=== PATIENT | male | born 1960 | race Caucasian/White ===

== ENCOUNTER 2023-11-06 15:07 | Inpatient (IN) ==
--- NOTE | 2023-11-06 15:16 | Emergency Department Note ---
Impression & Plan Acute UTI ADMIT ED Provider Note HPI: History obtained from EMS report and patient. The patient is a 62-year-old gentleman with history of traumatic brain injury in 1977, status post DIMMER BOARD OPERATOR shunt, presents the emergency department with a chief complaint of headache and vomiting for the past several weeks. Patient states his vomiting is gotten worse just over the past several days. On arrival here to the ER the patient is hemodynamically stable, he does not have any new focal deficits, is noted to have paralysis of the left lower extremity which the patient states is his baseline. Patient denies any recent fever, he is otherwise in no acute distress on arrival. Patient is afebrile on arrival and saturating well on room air. ROS: - Per HPI Differential Diagnosis: DIMMER BOARD OPERATOR shunt malfunction with hydrocephalus, infection/meningitis, migraine complex, tension headache, small bowel obstruction, viral gastroenteritis, acute cholecystitis, acute appendicitis, ischemic colitis, diverticulitis, amongst other potential pathologies. *Outpatient medications and allergy history reviewed. PE: General: Alert, no acute distress HEENT: Normocephalic, trachea midline Eyes: Extraocular eye movement is intact, no scleral erythema Pulmonary: Clear to auscultation bilaterally, no wheezing Cardio: Regular rate and rhythm GI: Abdomen is soft to palpation : No suprapubic tenderness MSK: No evidence of trauma or malformation of the extremities, no edema Skin: No evidence of rash Neuro: Alert, chronic paralysis of the left lower extremity, otherwise no new focal deficits Psychiatric: Cooperative INDEPENDENT INTERPRETATIONS: media monitor: (As interpreted by myself): - An order was placed for continuous cardiac monitoring - Patient was noted to be in sinus rhythm with a rate of 80 EKG: (As interpreted by myself): Rate: 66 Rhythm: Normal sinus rhythm Intervals: Within normal limits ST changes: No ST elevation Time: 1533 Interventions provided in ED: -IV fluid bolus, IV Zofran, IV Reglan, IV Benadryl Medical Decision Making: IV was established and lab work obtained, patient was placed on satellite project site monitor. Lab work shows a mild leukocytosis of 11.85, hemoglobin is normal, platelet count is slightly elevated at 473, CMP does not show any critical findings, no evidence of acute kidney injury, procalcitonin is low, lipase is normal. There is no transaminitis, bilirubin is normal. CT imaging of the head does not show any evidence of hydrocephalus or DIMMER BOARD OPERATOR shunt misplacement/malfunction. CT imaging of the abdomen pelvis was therefore performed that does not show any evidence of small bowel obstruction or acute surgical abnormality. Chest x-ray per radiology interpretation does show evidence of left-sided basilar opacity. Patient does have recent history of inpatient admission for pneumonia. Urinalysis also appears consistent with infection and also with some ketonuria. Blood cultures were drawn and the patient was treated with IV ceftriaxone. Viral panel testing is negative. At this time the patient remains alert and afebrile, CT imaging is reassuring in regards to DIMMER BOARD OPERATOR shunt placement, there is no hydrocephalus, patient has not had a fever, low concern for meningitis at this time. On my reassessment the patient remains alert, he states he still does feel unwell, he was therefore given a dose of IV Reglan for nausea and IV Benadryl as well. Patient states he does still have a moderate headache. At this time I feel given his symptoms he should be admitted for further management and treatment with IV antibiotics for pneumonia and UTI. Case was discussed with the on-call hospitalist, Dr. Blevins, and the patient was placed for admission in stable condition for further care. Consultants/Discussions held with other healthcare providers: -Hospitalist, Dr. Blevins Disposition discussion held by myself with: -Patient and patient's sister at the bedside Diagnosis: 1. Nausea and vomiting, acute 2. Headache, acute, intractable 3. Urinary tract infection, acute 4. Left-sided basilar pneumonia, acute 5. Ketonuria, acute Disposition: Admission Truman Orta DO Emergency Medicine Past Med/Surg History Problem List (Updated 11/06/23 @ 20:44 by Truman Orta DO) Acute UTI (Acute) UTI symptoms Urinary retention Encounter for pre-operative examination Rigidity (Chronic) Left upper extremity Eustachian tube dysfunction (Chronic) Spasticity (Chronic) Left upper extremity Urinary frequency (Acute) Nocturia (Acute) Neurogenic bladder (Acute) Enlarged prostate with lower urinary tract symptoms (LUTS) (Acute) Urge incontinence of urine Fecal occult blood test positive GERD (gastroesophageal reflux disease) History of cranial surgery (Chronic) 1977 History of tracheostomy (Chronic) no longer has Chronic rhinitis (Chronic) Tobacco use disorder (Chronic) Laryngitis, chronic (Chronic) GERD (gastroesophageal reflux disease) (Chronic) Seizure disorder (Chronic) at least 20yrs since last, grand mal and silent type--follows with Dr. Unger, on medication Left hemiparesis (Chronic) status post head injury--wheelchair bound, brace left lower leg, can stand to transfer Hypertension (Chronic) Medical History (Updated 11/06/23 @ 20:44 by Truman Orta DO) Wheelchair bound Chronic back pain BPH (benign prostatic hyperplasia) Hematest positive stools reason for scheduled colonoscopy Diabetes mellitus, type 2 Temporomandibular joint disorder Hearing loss, right 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 History of head injury 1977 Urine incontinence Stool incontinence Surgical History History of brain shunt History of foot surgery left tendon release History of surgery on left wrist tendon release History of tooth extraction all teeth History of tonsillectomy History of bilateral cataract extraction Family History Sister Family history of diabetes mellitus Uncle Family history of diabetes mellitus Grandmother (Paternal) Family history of diabetes mellitus Other Diabetes Heart disease Hypertension No family history of adverse response to anesthesia Prostate cancer Social History Smoking Status: Former smoker Tobacco Type: Cigarettes Cigarettes Per Day: "heavy" 40 a day; Second Hand Exposure: Yes (parents smoked); Do You Dip or Chew Tobacco: Yes (unsure how much a day); Hx Alcohol Use: No Hx Substance Use: No Preferred Language: Occitan Communication Ability: Effective Communication Ability Comment: signs own consents Sport 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 Required: No Beliefs That Will Affect Care: None Current Living Situation: Alone Current Living Situation Comment: caregiver there several hours a day current occupational status: disabled Feels Safe at Home: Yes Assistive Devices: Brace/Splint/Immobilizer, Denture - Upper, Denture - Lower and Wheelchair Allergies Allergies Allergy/AdvReac Type Severity Reaction Status Date / Time aspirin AdvReac Mild Anxiety Verified 02/16/23 11:44 [From Excedrin Extra Strength] caffeine AdvReac Mild Anxiety Verified 02/16/23 11:44 [From Excedrin Extra Strength] Home Meds Home Medications Medication Instructions Recorded Confirmed baclofen 10 mg tablet 10 mg PO TID 01/02/18 11/06/23 carbamazepine 200 mg 200 mg PO BID 01/02/18 11/06/23 tablet,extended release,12 hr (Tegretol XR) clonazepam 1 mg tablet (Klonopin) 1 mg PO HS PRN Sleep 01/02/18 11/06/23 divalproex 500 mg tablet,delayed 500 mg PO BID 01/02/18 11/06/23 release (Depakote) atorvastatin 20 mg tablet 20 mg PO QPM 04/30/18 11/06/23 lisinopril 5 mg tablet 2.5 mg PO QAM 05/15/19 11/06/23 acetaminophen 500 mg capsule 1,000 mg PO Q6H PRN Pain 01/12/20 11/06/23 ciprofloxacin HCl 250 mg tablet 250 mg PO BID 11/06/23 11/06/23 fluticasone fur. 100 mcg-umeclid 1 inh inhalation DAILY 11/06/23 11/06/23 62.5 mcg-vilant 25 mcg inhalat.powder (Trelegy Ellipta) magnesium oxide 400 mg (241.3 mg 400 mg PO QAM 11/06/23 11/06/23 magnesium) tablet melatonin 3 mg tablet 6 mg PO HS 11/06/23 11/06/23 metformin 500 mg tablet 500 mg PO BID 11/06/23 11/06/23 miconazole nitrate 2 % topical 1 applic topical BID PRN Other 11/06/23 11/06/23 powder (Zeasorb AF) mirabegron 50 mg tablet,extended 50 mg PO QAM 11/06/23 11/06/23 release 24 hr (Myrbetriq) oxybutynin chloride 15 mg 15 mg PO PM 11/06/23 11/06/23 tablet,extended release 24 hr sodium hypochlorite 0.25 % 1 applic topical .AFTERNOON 11/06/23 11/06/23 solution (Dakin's Solution) Results & Data (ED) Vital Signs Vital Signs - 24 hr 11/06/23 15:13 11/06/23 15:26 11/06/23 15:27 Temperature 36.8 C Temperature Source Oral Oral Pulse Rate 64 Pulse Rate [Apical] 69 Pulse Rhythm Regular Pulse Rhythm [Apical] Pulse Strength Normal Pulse Strength [Apical] Normal Respiratory Rate 19 19 Respiratory Effort / Characteristics Non-Labored Spontaneous Non-Labored Spontaneous Respiratory Depth Normal Normal Respiratory Pattern Regular Regular Blood Pressure 136/68 Blood Pressure [Right Arm] 136/68 Blood Pressure Mean 90 Blood Pressure Mean [Right Arm] 90 Pulse Oximetry 94 94 94 Oxygen Delivery Method Room Air Room Air Room Air Sepsis Recent Fever Within 48 Hours No Sepsis New/Unexplained Change in Mental Status No Sepsis Action Taken by Nursing No Action Required 11/06/23 15:33 11/06/23 15:41 11/06/23 16:03 Temperature Temperature Source Pulse Rate 68 62 Pulse Rate [Apical] Pulse Rhythm Pulse Rhythm [Apical] Pulse Strength Pulse Strength [Apical] Respiratory Rate 20 20 Respiratory Effort / Characteristics Respiratory Depth Respiratory Pattern Blood Pressure Blood Pressure [Right Arm] Blood Pressure Mean Blood Pressure Mean [Right Arm] Pulse Oximetry 93 Oxygen Delivery Method Sepsis Recent Fever Within 48 Hours Sepsis New/Unexplained Change in Mental Status Sepsis Action Taken by Nursing 11/06/23 17:00 11/06/23 19:11 11/06/23 19:20 Temperature 37 C Temperature Source Oral Pulse Rate 79 Pulse Rate [Apical] 68 Pulse Rhythm Pulse Rhythm [Apical] Regular Pulse Strength Pulse Strength [Apical] Normal Respiratory Rate 18 19 Respiratory Effort / Characteristics Non-Labored Spontaneous Non-Labored Spontaneous Respiratory Depth Normal Normal Respiratory Pattern Regular Regular Blood Pressure Blood Pressure [Right Arm] 115/62 153/88 H Blood Pressure Mean Blood Pressure Mean [Right Arm] 79 109 Pulse Oximetry 99 99 Oxygen Delivery Method Room Air Room Air Sepsis Recent Fever Within 48 Hours Sepsis New/Unexplained Change in Mental Status Sepsis Action Taken by Nursing Laboratory Data 11/06/23 15:38 11/06/23 15:38 Lab Results 11/06/23 11/06/23 Range/Units 15:38 Unknown WBC 11.85 H (4.8-10.8) K/ul RBC 5.01 (4.70-6.10) M/uL Hgb 14.4 (14.0-18.0) g/dl Hct 44.5 (42.0-52.0) % MCV 88.8 (80.0-100.0) fL MCH 28.7 (25.0-34.0) pg MCHC 32.4 (32.0-36.0) g/dL RDW Std Deviation 45.1 (36.4-46.3) fL RDW Coeff of Carlos Eduardo 14.0 (11.5-14.5) % Plt Count 473 H (130-400) K/uL MPV 9.7 (9.4-12.4) fL Immature Gran % (Auto) 0.4 % Neut % (Auto) 76.8 % Lymph % (Auto) 17.1 % [place] % (Auto) 4.6 % Eos % (Auto) 0.8 % Baso % (Auto) 0.3 % Neut # (Auto) 9.10 H (1.40-6.50) K/uL Lymph # (Auto) 2.03 (1.20-3.40) K/uL [place] # (Auto) 0.55 (0.11-0.59) K/uL Eos # (Auto) 0.09 (0.00-0.50) K/uL Baso # (Auto) 0.03 (0.00-0.20) K/uL Immature Gran # (Auto) 0.05 (0.01-0.20) K/uL Sodium 137 (136-145) mmol/L Potassium 4.5 (3.5-5.1) mmol/L Chloride 100 (98-107) mmol/L Carbon Dioxide 24 (21-32) mmol/L Anion Gap 13 H (3-11) BUN 14 (6-23) mg/dl Creatinine 0.57 L (0.6-1.4) mg/dl Est Cr Clr Drug Dosing 145.7 ml/min Est GFR ( Amer) 129.4 ml/min Est GFR (Non-Af Amer) 111.6 ml/min BUN/Creatinine Ratio 24.6 H (10-20) Glucose 181 H (70-99(Fasting)) mg/dl Calcium 9.6 (8.6-10.3) mg/dl Total Bilirubin 0.2 (0.2-1.0) mg/dl AST 15 (13-39) U/L ALT 22 (7-52) U/L Alkaline Phosphatase 64 (34-104) U/L Total Protein 8.5 H (6.0-8.3) gm/dl Albumin 4.1 (3.4-5.0) gm/dl Globulin 4.4 H (2.5-4.0) gm/dl Albumin/Globulin Ratio 0.9 (0.9-2) Lipase 14 (11-82) U/L Procalcitonin 0.03 (0-0.5) ng/ml Urine Color Dark Yellow Urine Appearance Clear (Clear) Urine pH 5.5 (4.5-7.5) Ur Specific [place] 1.035 H (1.000-1.030) Urine Protein 3+ H (Negative) Urine Glucose (UA) Trace H (Negative) Urine Ketones 2+ H (Negative) Urine Blood Negative (Negative) Urine Nitrite Positive A (Negative) Urine Bilirubin Negative (Negative) Urine Urobilinogen Negative (Negative) Ur Leukocyte Esterase Negative (Negative) Urine WBC (Auto) 21-50 H (0-5) /hpf Urine RBC (Auto) 11-20 H (0-2) /hpf U Hyaline Cast (Auto) 3-5 H (0-2) /lpf U Epithel Cells (Auto) 0-2 (0-2) /hpf Urine Bacteria (Auto) 3+ H (None Seen) Adenovirus (PCR) Not Detected (NotDetected) B. pertussis DNA (PCR) Not Detected (NotDetected) B.parapertussis DNA PCR Not Detected (NotDetected) C. pneumoniae DNA (PCR) Not Detected (NotDetected) Coronavirus OC43 (PCR) Not Detected (NotDetected) Coronavirus HKU1 (PCR) Not Detected (NotDetected) Coronavirus 229E (PCR) Not Detected (NotDetected) SARS-CoV-2 (PCR) Not Detected (NotDetected) Coronavirus NL63 (PCR) Not Detected (NotDetected) Human Metapneumovir PCR Not Detected (NotDetected) Influenza Type A (PCR) Not Detected (NotDetected) Influenza Type B (PCR) Not Detected (NotDetected) M. pneumoniae (PCR) Not Detected (NotDetected) Parainfluenza 1 (PCR) Not Detected (NotDetected) Parainfluenza 2 (PCR) Not Detected (NotDetected) Parainfluenza 3 (PCR) Not Detected (NotDetected) Parainfluenza 4 (PCR) Not Detected (NotDetected) RSV (PCR) Not Detected (NotDetected) Entero/Rhino (PCR) Not Detected (NotDetected) Administered Medications Discontinued Medications Diphenhydramine HCl (Diphenhydramine 50 Mg/Ml Vial) 25 mg IV NOW STA Stop: 11/06/23 18:54 Last Admin: 11/06/23 19:09 Dose: 25 mg Documented By: DIONNE Sodium Chloride (Nss) 500 mls @ 999 mls/hr IV .Q31M ONE Stop: 11/06/23 15:45 Last Infusion: 11/06/23 16:36 Dose: Infused Documented By: Admin: 11/06/23 15:42 Dose: 999 mls/hr Documented By: DIONNE Ceftriaxone Sodium (Rocephin) 2,000 mg in 50 mls @ 100 mls/hr IV NOW STA Stop: 11/06/23 19:18 Last Infusion: 11/06/23 20:21 Dose: Infused Documented By: Admin: 11/06/23 19:49 Dose: 100 mls/hr Documented By: DIONNE Ioversol (Optiray 320 100ml) 94 ml IV ONCE ONE Stop: 11/06/23 17:16 Last Admin: 11/06/23 17:16 Dose: 94 ml Documented By: ERASMO Metoclopramide HCl (Metoclopramide Hcl Inj 5 Mg/Ml 2 Ml Vial) 10 mg IV NOW STA Stop: 11/06/23 18:54 Last Admin: 11/06/23 19:08 Dose: 10 mg Documented By: DIONNE Ondansetron HCl (Ondansetron Inj 2 Mg/Ml 2 Ml Vial) 4 mg IV NOW STA Stop: 11/06/23 15:16 Last Admin: 11/06/23 15:42 Dose: 4 mg Documented By: DIONNE Ondansetron HCl (Ondansetron Inj 2 Mg/Ml 2 Ml Vial) 4 mg IV NOW STA Stop: 11/06/23 16:58 Last Admin: 11/06/23 17:07 Dose: 4 mg Documented By: DIONNE Imaging Data Radiologist's Impression: Head CT 11/06/23 15:23 CT head/brain wo con CLINICAL HISTORY: 62 years-old Male with COOK, vomiting, DIMMER BOARD OPERATOR shunt. Acute headache TECHNIQUE: Multiple axial CT images of the head were obtained without contrast. A dose lowering technique was utilized adhering to the principles of ALARA. CT DOSE: 2061.94 mGy.cm COMPARISON: 07/17/2016, 02/11/2018 FINDINGS: Motion degraded exam. Right posterior approach ventriculostomy catheter again noted with distal tip terminating within the anterior horn of the right lateral ventricle. There is a large area of encephalomalacia within the right cerebral hemisphere MCA territory with right sided craniectomy changes. No acute intracranial hemorrhage, midline shift, intracranial mass, hydrocephalus, territorial ischemia or abnormal extra-axial collection. Transverse dimension of the lateral ventricles is 2.5 cm, previously 1.7 cm on the 07/17/2016 study. This is within normal limits. The calvarium is intact. Moderate mucosal thickening of the maxillary sinuses. Unremarkable soft tissues and orbits. Prior bilateral lens repair. IMPRESSION: 1. Motion degraded exam without acute intracranial abnormality. 2. Chronic findings as above without evidence of hydrocephalus. 3. Stable positioning of the ventriculostomy catheter. ACT 112: Negative or not required by law. The above report was generated using voice recognition software. It may contain grammatical, syntax or spelling errors. Electronically signed by: Bryan Chaves M.D. 11/06/2023 4:09 PM Abdomen/Pelvis CT 11/06/23 16:14 CT OF THE ABDOMEN AND PELVIS WITH CONTRAST CLINICAL HISTORY: Nausea and vomiting. COMPARISON STUDY: CT of the abdomen and pelvis February 23, 2022. TECHNIQUE: Following IV administration of 94 mL of Optiray, axial images of the abdomen and pelvis were obtained from the lung bases to the proximal femurs. Images were reviewed in the axial, sagittal, and coronal planes. IV contrast was administered without complication. Automated exposure control was utilized for the study. A dose lowering technique was utilized adhering to the principles of ALARA. CT DOSE: 1793.59 mGy.cm FINDINGS: Visualized portions of the DIMMER BOARD OPERATOR shunt catheter are intact. The tip is within the right mid abdomen. Small left pleural effusion is noted with pleural thickening. This is likely chronic. Subpleural left lower lobe opacity favors atelectasis. No pneumatosis, free air or portal venous gas is present. The gallbladder is mildly distended. There is no convincing evidence for acute cholecystitis. There are no hepatic lesions. There is no biliary or pancreatic ductal dilatation. Spleen, adrenal glands and pancreas are unremarkable. Water attenuation left renal lesions represent cysts. There is a 5 mm left renal calculus. There are no ureteral calculi. There is no hydronephrosis. The appendix is normal. No evidence for a bowel obstruction. There is a moderate amount of stool within the rectum. Bailey balloon within the bladder is present. The bladder is collapsed. There is no fluid collection within the abdomen or pelvis. A mildly enlarged mesenteric lymph node on image 270 measures 1.8 x 1 cm. IMPRESSION: 1. No bowel obstruction. No bowel wall thickening. Normal appendix. Moderate amount of stool within the rectum. 2. 5 mm left renal calculus. No ureteral calculi. No hydronephrosis. 3. Mildly enlarged mesenteric lymph node which is nonspecific. A follow-up CT of the abdomen and pelvis in 6 months is recommended. 4. Small left pleural effusion with pleural thickening. This effusion is probably chronic. Subpleural left lower lobe opacity favors atelectasis. ACT 112: Negative or not required by law. Electronically signed by: Ger Taylor M.D. 11/06/2023 5:39 PM Chest X-Ray 11/06/23 16:28 XR chest 1V portable CLINICAL HISTORY: N/V, recent PNA COMPARISON STUDY: No previous studies for comparison. FINDINGS: A DIMMER BOARD OPERATOR shunt catheter is partially imaged. Lung volumes are mildly enlarged. There is mild cardiomegaly. There is pulmonary vascular congestion. Suspected trace left pleural effusion with mild left basilar opacity. IMPRESSION: 1. Cardiomegaly. Pulmonary vascular congestion without overt pulmonary edema. 2. Trace left pleural effusion with mild left basilar opacity which favors atelectasis although an infectious process could appear similar. ACT 112: Negative or not required by law. Electronically signed by: Ger Taylor M.D. 11/06/2023 5:12 PM Discharge Plan Visit Data Chief Complaint: Illness Stated Complaint: ILLNESS ED Provider: Truman Orta Discharge Problem: Acute UTI Forms Stand Alone Forms: [facility] Prescriptions Prescriptions: No Action clonazepam [Klonopin] 1 mg tablet 1 mg PO HS PRN (Reason: Sleep) divalproex [Depakote] 500 mg tablet,delayed release (DR/EC) 500 mg PO BID carbamazepine [Tegretol XR] 200 mg tablet extended release 12 hr 200 mg PO BID baclofen 10 mg tablet 10 mg PO TID atorvastatin 20 mg tablet 20 mg PO QPM lisinopril 5 mg tablet 2.5 mg PO QAM acetaminophen 500 mg Capsule 1,000 mg PO Q6H PRN (Reason: Pain) metformin 500 mg tablet 500 mg PO BID miconazole nitrate [Zeasorb AF] 2 % powder 1 applic TOPICAL BID PRN (Reason: Other) melatonin 3 mg tablet 6 mg PO HS ciprofloxacin HCl 250 mg tablet 250 mg PO BID magnesium oxide 400 mg (241.3 mg magnesium) tablet 400 mg PO QAM Dakin's Solution 0.25 % solution 1 applic topical .AFTERNOON Trelegy Ellipta 100-62.5-25 mcg blister with device 1 inh INHALATION DAILY oxybutynin chloride 15 mg tablet extended release 24hr 15 mg PO PM mirabegron [Myrbetriq] 50 mg tablet extended release 24 hr 50 mg PO QAM Referrals Referrals: Radha Martin MD [Primary Care Provider] -
[2023-11-06] MEDS: ONDANSETRON INJ 2 MG/ML 2 ML VIAL IV STA ×2 (15:42→17:07)
[2023-11-06] MEDS: SODIUM CHLORIDE 0.9% 500 ML IV ONE (15:42)
[2023-11-06 15:57] LABS: Basophils # (auto) 0.03 K/uL (0.00-0.20); Basophils % (auto) 0.3 %; Eosinophils # (auto) 0.09 K/uL (0.00-0.50); Eosinophils % (auto) 0.8 %; Hematocrit (blood only) 44.5 % (42.0-52.0); Hemoglobin 14.4 g/dl (14.0-18.0); Immature Granulocytes # (auto) 0.05 K/uL (0.01-0.20); Immature Granulocytes % (auto) 0.4 %; Lymphocytes # (auto) 2.03 K/uL (1.20-3.40); Lymphocytes % (auto) 17.1 %; Mean Corpuscular Hemoglobin 28.7 pg (25.0-34.0); Mean Corpuscular Hgb Conc 32.4 g/dL (32.0-36.0); Mean Corpuscular Volume 88.8 fL (80.0-100.0); Mean Platelet Volume 9.7 fL (9.4-12.4); Monocytes # (auto) 0.55 K/uL (0.11-0.59); Monocytes % (auto) 4.6 %; Neutrophils % (auto) 76.8 %; Platelet Count 473 K/uL (130-400); RDW Standard Deviation 45.1 fL (36.4-46.3); Red Blood Count 5.01 M/uL (4.70-6.10); White Blood Count 11.85 K/ul (4.8-10.8)
--- NOTE | 2023-11-06 16:10 | CT Scan Report ---
CT head/brain wo con CLINICAL HISTORY: 62 years-old Male with COOK, vomiting, POT FLUXER shunt. Acute headache TECHNIQUE: Multiple axial CT images of the head were obtained without contrast. A dose lowering tech nique was utilized adhering to the principles of ALARA. CT DOSE: 2061.94 mGy.cm COMPARISON: 07/17/2016, 02/11/2018 FINDINGS: Motion degraded exam. Right posterior approach ventriculostomy catheter again noted with distal tip t erminating within the anterior horn of the right lateral ventricle. There is a large area of encephal omalacia within the right cerebral hemisphere MCA territory with right sided craniectomy changes. No acute intracranial hemorrhage, midline shift, intracranial mass, hydrocephalus, territorial ischemia or abnormal extra-axial collection. Transverse dimension of the lateral ventricles is 2.5 cm, previou sly 1.7 cm on the 07/17/2016 study. This is within normal limits. The calvarium is intact. Moderate mucosal thickening of the maxillary sinuses. Unremarkable soft tis sues and orbits. Prior bilateral lens repair. IMPRESSION: 1. Motion degraded exam without acute intracranial abnormality. 2. Chronic findings as above without evidence of hydrocephalus. 3. Stable positioning of the ventriculostomy catheter. ACT 112: Negative or not required by law. The above report was generated using voice recognition software. It may contain grammatical, syntax o r spelling errors. Electronically signed by: Bryan Chaves M.D. 11/06/2023 4:09 PM
[2023-11-06 16:38] LABS: Albumin Level 4.1 gm/dl (3.4-5.0); Bilirubin,Total 0.2 mg/dl (0.2-1.0); Calcium 9.6 mg/dl (8.6-10.3); Potassium 4.5 mmol/L (3.5-5.1)
[2023-11-06 16:44] LABS: Albumin Globulin Ratio 0.9 (0.9-2); BUN Creatinine Ratio 24.6 (10-20); Creatinine Clr Calc Pharmacy 145.7 ml/min; Est GFR (African American) 129.4 ml/min; Est GFR (Non-African American) 111.6 ml/min; Globulin 4.4 gm/dl (2.5-4.0); Total Protein 8.5 gm/dl (6.0-8.3)
--- NOTE | 2023-11-06 17:14 | XRay Report ---
XR chest 1V portable CLINICAL HISTORY: N/V, recent PNA COMPARISON STUDY: No previous studies for comparison. FINDINGS: A STEP DOWN NURSE shunt catheter is partially imaged. Lung volumes are mildly enlarged. There is mild ca rdiomegaly. There is pulmonary vascular congestion. Suspected trace left pleural effusion with mild l eft basilar opacity. IMPRESSION: 1. Cardiomegaly. Pulmonary vascular congestion without overt pulmonary edema. 2. Trace left pleural effusion with mild left basilar opacity which favors atelectasis although an in fectious process could appear similar. ACT 112: Negative or not required by law. Electronically signed by: Ger Taylor M.D. 11/06/2023 5:12 PM
[2023-11-06] MEDS: OPTIRAY 320 100ml IV ONE (17:16)
[2023-11-06 17:35] LABS: Appearance Urine Clear (Clear); Bacteria Urine Automated 3+ (None Seen); Bilirubin Urine Negative (Negative); Blood Urine Negative (Negative); Color Urine Dark Yellow; Epithelial Cell Urine Auto 0-2 /hpf (0-2); Glucose Urine UA Trace (Negative); Ketones Urine 2+ (Negative); Leukocyte Esterase Urine Negative (Negative); Nitrite Urine Positive (Negative); Protein Urine 3+ (Negative); Specific Gravity Urine 1.035 (1.000-1.030); Urobilinogen Urine Negative (Negative); WBC Urine Automated 21-50 /hpf (0-5); pH Urine 5.5 (4.5-7.5)
--- NOTE | 2023-11-06 17:42 | CT Scan Report ---
CT OF THE ABDOMEN AND PELVIS WITH CONTRAST CLINICAL HISTORY: Nausea and vomiting. COMPARISON STUDY: CT of the abdomen and pelvis February 23, 2022. TECHNIQUE: Following IV administration of 94 mL of Optiray, axial images of the abdomen and pelvis we re obtained from the lung bases to the proximal femurs. Images were reviewed in the axial, sagittal, and coronal planes. IV contrast was administered without complication. Automated exposure control wa s utilized for the study. A dose lowering technique was utilized adhering to the principles of ALARA . CT DOSE: 1793.59 mGy.cm FINDINGS: Visualized portions of the SUPERVISOR EVAPORATOR shunt catheter are intact. The tip is within the right mid ab domen. Small left pleural effusion is noted with pleural thickening. This is likely chronic. Subpleur al left lower lobe opacity favors atelectasis. No pneumatosis, free air or portal venous gas is prese nt. The gallbladder is mildly distended. There is no convincing evidence for acute cholecystitis. The re are no hepatic lesions. There is no biliary or pancreatic ductal dilatation. Spleen, adrenal gland s and pancreas are unremarkable. Water attenuation left renal lesions represent cysts. There is a 5 m m left renal calculus. There are no ureteral calculi. There is no hydronephrosis. The appendix is nor mal. No evidence for a bowel obstruction. There is a moderate amount of stool within the rectum. Fole y balloon within the bladder is present. The bladder is collapsed. There is no fluid collection withi n the abdomen or pelvis. A mildly enlarged mesenteric lymph node on image 270 measures 1.8 x 1 cm. IMPRESSION: 1. No bowel obstruction. No bowel wall thickening. Normal appendix. Moderate amount of stool within t he rectum. 2. 5 mm left renal calculus. No ureteral calculi. No hydronephrosis. 3. Mildly enlarged mesenteric lymph node which is nonspecific. A follow-up CT of the abdomen and pelv is in 6 months is recommended. 4. Small left pleural effusion with pleural thickening. This effusion is probably chronic. Subpleural left lower lobe opacity favors atelectasis. ACT 112: Negative or not required by law. Electronically signed by: Ger Taylor M.D. 11/06/2023 5:39 PM
[2023-11-06] MEDS: METOCLOPRAMIDE HCL INJ 5 MG/ML 2 ML VIAL IV STA (19:08)
[2023-11-06] MEDS: diphenhydrAMINE 50 MG/ML VIAL IV STA (19:09)
[2023-11-06 19:10] LABS: Adenovirus PCR Not Detected (NotDetected); Bordetella parapertussis PCR Not Detected (NotDetected); Bordetella pertussis PCR Not Detected (NotDetected); Chlamydia pneumoniae PCR Not Detected (NotDetected); Coronavirus 229E PCR Not Detected (NotDetected); Coronavirus CoV-2 (COVID19)PCR Not Detected (NotDetected); Coronavirus HKU1 PCR Not Detected (NotDetected); Coronavirus NL63 PCR Not Detected (NotDetected); Coronavirus OC43PCR Not Detected (NotDetected); Human Metapneumovirus PCR Not Detected (NotDetected); Influenza A PCR Not Detected (NotDetected); Influenza B PCR Not Detected (NotDetected); Mycoplasma pneumoniae PCR Not Detected (NotDetected); Parainfluenza Virus 1 PCR Not Detected (NotDetected); Parainfluenza Virus 2 PCR Not Detected (NotDetected); Parainfluenza Virus 3 PCR Not Detected (NotDetected); Parainfluenza Virus 4 PCR Not Detected (NotDetected); Respiratory Syncytial VirusPCR Not Detected (NotDetected); Rhinovirus/Enterovirus PCR Not Detected (NotDetected)
[2023-11-06] MEDS: cefTRIAXone SODIUM 2,000 MG/50 ML BAG IV STA (19:49)
--- NOTE | 2023-11-06 20:34 | History & Physical Report ---
Date of Service November 06, 2023 Assessment & Plan (1) Acute UTI: Plan: 62yo male with recent admission to [facility] for sepsis and PNA presenting with headache, nausea and vomiting. Patient's symptoms are similar to prior UTIs. He is afebrile, HD stable and non-toxic in appearance Given complaint of nausea and vomiting, CT of the head was obtained due to history of NETWORK SYSTEMS INTEGRATOR shunt - appears to be in place and functioning properly -Admit to medical -Follow urine cultures, sensitivities -Maintain contact isolation precautions - patient with history of ESBL UTI in the past -Meropenem 500mg IV q 6 hours -Zofran PRN nausea -Tylenol PRN pain/COOK -Exchange Bailey catheter order placed -Continue Oxybutynin (2) Hypertension: Plan: Chronic. -Continue Lisinopril -Monitor (3) Diabetes mellitus, type 2: Plan: Blood sugar 181 on intake labs. Patient takes Metformin at home -Hold Metformin -Lantus 7u BID -ISS -Goal blood sugar 110 - 140 (4) Sacral wound: Plan: Noted. Currently being treated with daily wet to dry dressing with Dakins solution -Wound care appreciated Plan F/E/N- LR at 100mL/hr x 2L, monitor electrolytes and replete as needed, CC diet - minced and moist with nectar thick liquids and ongoing aspiration precautions after discussion with sister Ppx - Lovenox Code - Full per discussion with patient Dispo - Admit to medical History of Present Illness Chief Complaint: nausea, vomiting and COOK x 3 days Primary Care Provider: Radha Martin MD Jeffrey Ernandez is a 62yo male presenting with three days of nausea, vomiting and headache. 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 He has a NETWORK SYSTEMS INTEGRATOR shunt in place and is wheelchair bound. His sister is at bedside and provides majority of the history. She reports that patient has not been well since September 15, 2023 when he presented to [facility] with acute hypoxic respiratory failure and sepsis secondary to LLL pneumonia. He had a CT of the abdomen which revealed a large abscess of the left buttock. He was taken to the OR on 09/20/23 for incision and drainage and was treated with IV antibiotics. He was discharged to [facility] swing bed for rehab on 10/01/23. While at [facility] he developed nausea, vomiting and headache and was found to have an ESBL UTI. He was treated with IV Meropenem with improvement. The patient was ultimately transferred to [facility] on 10/18/23. He had diffuse myopathy but functional status improved during his stay there. on 10/30/23 patient again developed nausea, vomiting and headache and was found to have another UTI secondary to ESBL Klebsiella. He was changed to Ciprofloxacin and ultimately discharged home on 11/02/23. Yesterday patient developed recurrence of headache as well as nausea and vomiting. He had 5-6 episodes of non-bloody/non-bilious emesis. Additionally sister reports some ongoing SOB, chills, congestion and cough. No fever, no abdominal pain or diarrhea. Patient with longstanding indwelling Bailey catheter for the last year. Sister reports it was changed out last Sunday. UOP appears normal. He has been having worsening bladder spasms - sister does not think he has been getting his Mybetriq or Oxybutynin at rehab. PO intake has been normal. However, patient has had significant weight los 226# --> 190# since September 14. In the ER patient afebrile, HD stable. Allergies Allergy/AdvReac Type Severity Reaction Status Date / Time aspirin AdvReac Mild Anxiety Verified 02/16/23 11:44 [From Excedrin Extra Strength] caffeine AdvReac Mild Anxiety Verified 02/16/23 11:44 [From Excedrin Extra Strength] Home Medications Medication Instructions Recorded Confirmed Type baclofen 10 mg tablet 10 mg PO TID 01/02/18 11/06/23 History carbamazepine 200 mg 200 mg PO BID 01/02/18 11/06/23 History tablet,extended release,12 hr (Tegretol XR) clonazepam 1 mg tablet (Klonopin) 1 mg PO HS PRN Sleep 01/02/18 11/06/23 History divalproex 500 mg tablet,delayed 500 mg PO BID 01/02/18 11/06/23 History release (Depakote) atorvastatin 20 mg tablet 20 mg PO QPM 04/30/18 11/06/23 History lisinopril 5 mg tablet 2.5 mg PO QAM 05/15/19 11/06/23 History acetaminophen 500 mg capsule 1,000 mg PO Q6H PRN Pain 01/12/20 11/06/23 History ciprofloxacin HCl 250 mg tablet 250 mg PO BID 11/06/23 11/06/23 History fluticasone fur. 100 mcg-umeclid 1 inh inhalation DAILY 11/06/23 11/06/23 History 62.5 mcg-vilant 25 mcg inhalat.powder (Trelegy Ellipta) magnesium oxide 400 mg (241.3 mg 400 mg PO QAM 11/06/23 11/06/23 History magnesium) tablet melatonin 3 mg tablet 6 mg PO HS 11/06/23 11/06/23 History metformin 500 mg tablet 500 mg PO BID 11/06/23 11/06/23 History miconazole nitrate 2 % topical 1 applic topical BID PRN Other 11/06/23 11/06/23 History powder (Zeasorb AF) mirabegron 50 mg tablet,extended 50 mg PO QAM 11/06/23 11/06/23 History release 24 hr (Myrbetriq) oxybutynin chloride 15 mg 15 mg PO PM 11/06/23 11/06/23 History tablet,extended release 24 hr sodium hypochlorite 0.25 % 1 applic topical .AFTERNOON 11/06/23 11/06/23 History solution (Dakin's Solution) Past Med/Surg History Problem List (Updated 11/07/23 @ 01:36 by Petra Blevins DO) Sacral wound Acute UTI (Acute) UTI symptoms Urinary retention Encounter for pre-operative examination Rigidity (Chronic) Left upper extremity Eustachian tube dysfunction (Chronic) Spasticity (Chronic) Left upper extremity Urinary frequency (Acute) Nocturia (Acute) Neurogenic bladder (Acute) Enlarged prostate with lower urinary tract symptoms (LUTS) (Acute) Urge incontinence of urine Fecal occult blood test positive GERD (gastroesophageal reflux disease) History of cranial surgery (Chronic) 1977 History of tracheostomy (Chronic) no longer has Chronic rhinitis (Chronic) Tobacco use disorder (Chronic) Laryngitis, chronic (Chronic) GERD (gastroesophageal reflux disease) (Chronic) Seizure disorder (Chronic) at least 20yrs since last, grand mal and silent type--follows with Dr. Julio Cesar cisneros, on medication Left hemiparesis (Chronic) status post head injury--wheelchair bound, brace left lower leg, can stand to transfer Hypertension (Chronic) Medical History (Updated 11/07/23 @ 01:36 by Petra Blevins DO) Wheelchair bound Chronic back pain BPH (benign prostatic hyperplasia) Hematest positive stools reason for scheduled colonoscopy Diabetes mellitus, type 2 Temporomandibular joint disorder Hearing loss, right 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 History of head injury 1977 Urine incontinence Stool incontinence Surgical History History of brain shunt History of foot surgery left tendon release History of surgery on left wrist tendon release History of tooth extraction all teeth History of tonsillectomy History of bilateral cataract extraction Family History Sister Family history of diabetes mellitus Uncle Family history of diabetes mellitus Grandmother (Paternal) Family history of diabetes mellitus Other Diabetes Heart disease Hypertension No family history of adverse response to anesthesia Prostate cancer Social History Smoking Status: Former smoker Tobacco Type: Cigarettes Cigarettes Per Day: "heavy" 40 a day; Second Hand Exposure: No; Do You Dip or Chew Tobacco: No; Hx Alcohol Use: No Hx Substance Use: No Preferred Language: Polish Communication Ability: Effective Communication Ability Comment: signs own consents Licensed [employer] App[employer] Required: No Beliefs That Will Affect Care: None Current Living Situation: Family Current Living Situation Comment: caregiver there several hours a day current occupational status: disabled Other Information That Helps Us Care for You: No Feels Safe at Home: Yes Safety Concerns: Feels Safe At This Time Assistive Devices: Brace/Splint/Immobilizer and Special Shoe Review of Systems Review of Systems: All systems reviewed & are unremarkable except as noted in HPI & below Physical Exam Physical Exam: General: chronically ill appearing male, NAD Skin: sacral decubitus present (not independently visualized) HEENT: NC/AT, PERRL, EOMI, anicteric sclera, conjunctiva without injection, external ear normal to inspection and nontender, nares patent, moist mucus membranes, dentition intact, no oropharyngeal lesions, neck supple, trachea midline, no LAD, no thyromegaly, no JVD, dysarthria, left facial droop Heart: +S1/S2, regular, no m/r/g Lungs: equal air entry bilaterally, no rales/rhonchi/wheezes Abd: +BS, soft, NT/ND, no masses/organomegaly/ascites Ext: warm, 2+ pulses in UE/LE bilaterally, no clubbing/cyanosis or edema Neuro: left sided paralysis Results & Data Results & Data Vital Signs (Past 12 Hours) Vital Signs Temp Pulse Pulse Resp BP BP Pulse Ox 11/06/23 19:20 79 11/06/23 19:11 37 C 68 19 153/88 H 99 11/06/23 17:00 18 115/62 99 11/06/23 16:03 20 93 11/06/23 15:41 62 11/06/23 15:33 68 20 11/06/23 15:27 69 19 136/68 94 11/06/23 15:26 94 11/06/23 15:13 36.8 C 64 19 136/68 94 O2 Del Method 11/06/23 19:20 11/06/23 19:11 Room Air 11/06/23 17:00 Room Air 11/06/23 16:03 11/06/23 15:41 11/06/23 15:33 11/06/23 15:27 Room Air 11/06/23 15:26 Room Air 11/06/23 15:13 Room Air Laboratory Results Laboratory Results WBC 11.85 K/ul (4.8-10.8) H 11/06/23 15:38 RBC 5.01 M/uL (4.70-6.10) 11/06/23 15:38 Hgb 14.4 g/dl (14.0-18.0) 11/06/23 15:38 Hct 44.5 % (42.0-52.0) 11/06/23 15:38 MCV 88.8 fL (80.0-100.0) 11/06/23 15:38 MCH 28.7 pg (25.0-34.0) 11/06/23 15:38 MCHC 32.4 g/dL (32.0-36.0) 11/06/23 15:38 RDW Std Deviation 45.1 fL (36.4-46.3) 11/06/23 15:38 RDW Coeff of Carlos Eduardo 14.0 % (11.5-14.5) 11/06/23 15:38 Plt Count 473 K/uL (130-400) H 11/06/23 15:38 MPV 9.7 fL (9.4-12.4) 11/06/23 15:38 Immature Gran % (Auto) 0.4 % 11/06/23 15:38 Neut % (Auto) 76.8 % 11/06/23 15:38 Lymph % (Auto) 17.1 % 11/06/23 15:38 [place] % (Auto) 4.6 % 11/06/23 15:38 Eos % (Auto) 0.8 % 11/06/23 15:38 Baso % (Auto) 0.3 % 11/06/23 15:38 Neut # (Auto) 9.10 K/uL (1.40-6.50) H 11/06/23 15:38 Lymph # (Auto) 2.03 K/uL (1.20-3.40) 11/06/23 15:38 [place] # (Auto) 0.55 K/uL (0.11-0.59) 11/06/23 15:38 Eos # (Auto) 0.09 K/uL (0.00-0.50) 11/06/23 15:38 Baso # (Auto) 0.03 K/uL (0.00-0.20) 11/06/23 15:38 Immature Gran # (Auto) 0.05 K/uL (0.01-0.20) 11/06/23 15:38 Sodium 137 mmol/L (136-145) 11/06/23 15:38 Potassium 4.5 mmol/L (3.5-5.1) 11/06/23 15:38 Chloride 100 mmol/L (98-107) 11/06/23 15:38 Carbon Dioxide 24 mmol/L (21-32) 11/06/23 15:38 Anion Gap 13 (3-11) H 11/06/23 15:38 BUN 14 mg/dl (6-23) 11/06/23 15:38 Creatinine 0.57 mg/dl (0.6-1.4) L 11/06/23 15:38 Est Cr Clr Drug Dosing 145.7 ml/min 11/06/23 15:38 Est GFR ( Amer) 129.4 ml/min 11/06/23 15:38 Est GFR (Non-Af Amer) 111.6 ml/min 11/06/23 15:38 BUN/Creatinine Ratio 24.6 (10-20) H 11/06/23 15:38 Glucose 181 mg/dl (70-99(Fasting)) H 11/06/23 15:38 POC Glucose 192 mg/dl (70-99) H 11/06/23 22:21 Calcium 9.6 mg/dl (8.6-10.3) 11/06/23 15:38 Phosphorus 3.6 mg/dl (2.5-4.9) 11/06/23 15:38 Magnesium 1.8 mg/dl (1.7-2.4) 11/06/23 15:38 Total Bilirubin 0.2 mg/dl (0.2-1.0) 11/06/23 15:38 AST 15 U/L (13-39) 11/06/23 15:38 ALT 22 U/L (7-52) 11/06/23 15:38 Alkaline Phosphatase 64 U/L (34-104) 11/06/23 15:38 Total Protein 8.5 gm/dl (6.0-8.3) H 11/06/23 15:38 Albumin 4.1 gm/dl (3.4-5.0) 11/06/23 15:38 Globulin 4.4 gm/dl (2.5-4.0) H 11/06/23 15:38 Albumin/Globulin Ratio 0.9 (0.9-2) 11/06/23 15:38 Lipase 14 U/L (11-82) 11/06/23 15:38 Procalcitonin 0.03 ng/ml (0-0.5) 11/06/23 15:38 Urine Color Dark Yellow 11/06/23 Unknown Urine Appearance Clear (Clear) 11/06/23 Unknown Urine pH 5.5 (4.5-7.5) 11/06/23 Unknown Ur Specific [place] 1.035 (1.000-1.030) H 11/06/23 Unknown Urine Protein 3+ (Negative) H 11/06/23 Unknown Urine Glucose (UA) Trace (Negative) H 11/06/23 Unknown Urine Ketones 2+ (Negative) H 11/06/23 Unknown Urine Blood Negative (Negative) 11/06/23 Unknown Urine Nitrite Positive (Negative) A 11/06/23 Unknown Urine Bilirubin Negative (Negative) 11/06/23 Unknown Urine Urobilinogen Negative (Negative) 11/06/23 Unknown Ur Leukocyte Esterase Negative (Negative) 11/06/23 Unknown Urine WBC (Auto) 21-50 /hpf (0-5) H 11/06/23 Unknown Urine RBC (Auto) 11-20 /hpf (0-2) H 11/06/23 Unknown U Hyaline Cast (Auto) 3-5 /lpf (0-2) H 11/06/23 Unknown U Epithel Cells (Auto) 0-2 /hpf (0-2) 11/06/23 Unknown Urine Bacteria (Auto) 3+ (None Seen) H 11/06/23 Unknown Nasal Screen MRSA (PCR) Negative (Negative) 11/06/23 Unknown Adenovirus (PCR) Not Detected (NotDetected) 11/06/23 Unknown B. pertussis DNA (PCR) Not Detected (NotDetected) 11/06/23 Unknown B.parapertussis DNA PCR Not Detected (NotDetected) 11/06/23 Unknown C. pneumoniae DNA (PCR) Not Detected (NotDetected) 11/06/23 Unknown Coronavirus OC43 (PCR) Not Detected (NotDetected) 11/06/23 Unknown Coronavirus HKU1 (PCR) Not Detected (NotDetected) 11/06/23 Unknown Coronavirus 229E (PCR) Not Detected (NotDetected) 11/06/23 Unknown SARS-CoV-2 (PCR) Not Detected (NotDetected) 11/06/23 Unknown Coronavirus NL63 (PCR) Not Detected (NotDetected) 11/06/23 Unknown Human Metapneumovir PCR Not Detected (NotDetected) 11/06/23 Unknown Influenza Type A (PCR) Not Detected (NotDetected) 11/06/23 Unknown Influenza Type B (PCR) Not Detected (NotDetected) 11/06/23 Unknown M. pneumoniae (PCR) Not Detected (NotDetected) 11/06/23 Unknown Parainfluenza 1 (PCR) Not Detected (NotDetected) 11/06/23 Unknown Parainfluenza 2 (PCR) Not Detected (NotDetected) 11/06/23 Unknown Parainfluenza 3 (PCR) Not Detected (NotDetected) 11/06/23 Unknown Parainfluenza 4 (PCR) Not Detected (NotDetected) 11/06/23 Unknown RSV (PCR) Not Detected (NotDetected) 11/06/23 Unknown Entero/Rhino (PCR) Not Detected (NotDetected) 11/06/[address] 11/06/23 15:23 CT head/brain wo con CLINICAL HISTORY: 62 years-old Male with COOK, vomiting, NETWORK SYSTEMS INTEGRATOR shunt. Acute headache TECHNIQUE: Multiple axial CT images of the head were obtained without contrast. A dose lowering technique was utilized adhering to the principles of ALARA. CT DOSE: 2061.94 mGy.cm COMPARISON: 07/17/2016, 02/11/2018 FINDINGS: Motion degraded exam. Right posterior approach ventriculostomy catheter again noted with distal tip terminating within the anterior horn of the right lateral ventricle. There is a large area of encephalomalacia within the right cerebral hemisphere MCA territory with right sided craniectomy changes. No acute intracranial hemorrhage, midline shift, intracranial mass, hydrocephalus, territorial ischemia or abnormal extra-axial collection. Transverse dimension of the lateral ventricles is 2.5 cm, previously 1.7 cm on the 07/17/2016 study. This is within normal limits. The calvarium is intact. Moderate mucosal thickening of the maxillary sinuses. Unremarkable soft tissues and orbits. Prior bilateral lens repair. IMPRESSION: 1. Motion degraded exam without acute intracranial abnormality. 2. Chronic findings as above without evidence of hydrocephalus. 3. Stable positioning of the ventriculostomy catheter. ACT 112: Negative or not required by law. The above report was generated using voice recognition software. It may contain grammatical, syntax or spelling errors. Electronically signed by: Bryan Chaves M.D. 11/06/2023 4:09 PM Abdomen/Pelvis CT 11/06/23 16:14 CT OF THE ABDOMEN AND PELVIS WITH CONTRAST CLINICAL HISTORY: Nausea and vomiting. COMPARISON STUDY: CT of the abdomen and pelvis February 23, 2022. TECHNIQUE: Following IV administration of 94 mL of Optiray, axial images of the abdomen and pelvis were obtained from the lung bases to the proximal femurs. Images were reviewed in the axial, sagittal, and coronal planes. IV contrast was administered without complication. Automated exposure control was utilized for the study. A dose lowering technique was utilized adhering to the principles of ALARA. CT DOSE: 1793.59 mGy.cm FINDINGS: Visualized portions of the NETWORK SYSTEMS INTEGRATOR shunt catheter are intact. The tip is within the right mid abdomen. Small left pleural effusion is noted with pleural thickening. This is likely chronic. Subpleural left lower lobe opacity favors atelectasis. No pneumatosis, free air or portal venous gas is present. The gallbladder is mildly distended. There is no convincing evidence for acute cholecystitis. There are no hepatic lesions. There is no biliary or pancreatic ductal dilatation. Spleen, adrenal glands and pancreas are unremarkable. Water attenuation left renal lesions represent cysts. There is a 5 mm left renal calculus. There are no ureteral calculi. There is no hydronephrosis. The appendix is normal. No evidence for a bowel obstruction. There is a moderate amount of stool within the rectum. Bailey balloon within the bladder is present. The bladder is collapsed. There is no fluid collection within the abdomen or pelvis. A mildly enlarged mesenteric lymph node on image 270 measures 1.8 x 1 cm. IMPRESSION: 1. No bowel obstruction. No bowel wall thickening. Normal appendix. Moderate amount of stool within the rectum. 2. 5 mm left renal calculus. No ureteral calculi. No hydronephrosis. 3. Mildly enlarged mesenteric lymph node which is nonspecific. A follow-up CT of the abdomen and pelvis in 6 months is recommended. 4. Small left pleural effusion with pleural thickening. This effusion is probably chronic. Subpleural left lower lobe opacity favors atelectasis. ACT 112: Negative or not required by law. Electronically signed by: Ger Taylor M.D. 11/06/2023 5:39 PM Chest X-Ray 11/06/23 16:28 XR chest 1V portable CLINICAL HISTORY: N/V, recent PNA COMPARISON STUDY: No previous studies for comparison. FINDINGS: A NETWORK SYSTEMS INTEGRATOR shunt catheter is partially imaged. Lung volumes are mildly enlarged. There is mild cardiomegaly. There is pulmonary vascular congestion. Suspected trace left pleural effusion with mild left basilar opacity. IMPRESSION: 1. Cardiomegaly. Pulmonary vascular congestion without overt pulmonary edema. 2. Trace left pleural effusion with mild left basilar opacity which favors atelectasis although an infectious process could appear similar. ACT 112: Negative or not required by law. Electronically signed by: Ger Taylor M.D. 11/06/2023 5:12 PM ECG Additional Comments: EKG wtih NSR at 66bpm, sinus arrhythmia, no acute ischemic changes Code Status & VTE Plan VTE Prophylaxis Plan VTE Prophylaxis will be ordered: Yes PG Care Time/CCT Total # of Minutes Spent Total Time Spent with Patient: Total time spent is greater than 50% in coordination of care (as documented) at patient's floor/unit and/or counseling patient: Coding Level of Care Code 92733 INT INP/OBS CARE 3/75MIN Diagnoses Acute UTI N39.0 Hypertension I10 Diabetes mellitus, type 2 E11.9 Sacral wound S31.000A
[2023-11-06] MEDS ORDERED: DEXTROSE 50% 50 ML SYRINGE IV PRN (22:02)
[2023-11-06] MEDS ORDERED: POLYETHYLENE (MIRALAX) 17 GM PACK PO PRN (22:02)
[2023-11-06] MEDS ORDERED: GLUCOSE 40% GEL 15 GM TUBE PO PRN (22:02)
[2023-11-06] MEDS ORDERED: GLUCAGON FOR INJ 1 MG VIAL SQ PRN (22:02)
[2023-11-06] MEDS ORDERED: CARBOHYDRATES FOR HYPOGLYCEMIA PO PRN (22:02)
[2023-11-06] MEDS ORDERED: GLUCOSE 10 TAB/TUBE PO PRN (22:02)
[2023-11-06] MEDS ORDERED: MICONAZOLE NITRATE POWDER 85 GM TOP PRN (22:08)
[2023-11-06] MEDS: LACTATED RINGER'S 1,000 ML IV SCH (22:20)
[2023-11-06] MEDS: INSULIN ASPART PER UNIT CHARGE SC SCH (22:24)
[2023-11-06] MEDS: LANTUS PER UNIT CHARGE SQ SCH (22:25)
[2023-11-06] MEDS: DAKIN'S SOLN 0.25% HALF STRENGTH 473ML BTL EXT SCH (22:27)
[2023-11-06 22:29] LABS: Magnesium 1.8 mg/dl (1.7-2.4); Phosphorus 3.6 mg/dl (2.5-4.9)
[2023-11-06] MEDS: ENOXAPARIN INJ 40 MG/0.4 ML SYR SQ SCH (22:38)
[2023-11-06] MEDS: MEROPENEM 500 MG in SYRINGE 0 ML IV ONE (22:38)
[2023-11-07] MEDS: MEROPENEM 500 MG in SYRINGE 0 ML IV SCH (03:59)
[2023-11-07 08:12] LABS: Hematocrit (blood only) 40.7 % (42.0-52.0); Hemoglobin 13.5 g/dl (14.0-18.0); Mean Corpuscular Hemoglobin 29.2 pg (25.0-34.0); Mean Corpuscular Hgb Conc 33.2 g/dL (32.0-36.0); Mean Corpuscular Volume 87.9 fL (80.0-100.0); Mean Platelet Volume 9.7 fL (9.4-12.4); Platelet Count 465 K/uL (130-400); RDW Standard Deviation 44.8 fL (36.4-46.3); Red Blood Count 4.63 M/uL (4.70-6.10); White Blood Count 11.98 K/ul (4.8-10.8)
[2023-11-07 08:28] LABS: BUN Creatinine Ratio 24.5 (10-20); Calcium 9.2 mg/dl (8.6-10.3); Creatinine Clr Calc Pharmacy 148.7 ml/min; Est GFR (African American) 133.3 ml/min; Potassium 4.1 mmol/L (3.5-5.1)
[2023-11-07] MEDS ORDERED: NON-FORMULARY MEDICATION (Fluticasone-Umeclidin-Vilanter [Trelegy Ellipta] 100-62.5-25 mcg INH SCH (09:00)
--- NOTE | 2023-11-07 09:01 | Hospitalist Progress Note ---
Date of Service November 07, 2023 Assessment & Plan (1) Acute UTI: Plan: Metabolic encephalopathy on presentation 62yo male with recent admission to [facility] for sepsis and PNA, transfer to [facility] 10/17-present. presenting with headache, nausea and vomiting. PT has has chronic berg due to complications of TBI (baseline L hemipelegia and facial droop plus cognitive limitations) Patient's symptoms are similar to prior ESBL UTIs. Given complaint of nausea and vomiting, CT of the head was obtained due to history of PIPE SETTER shunt - appears to be in place and functioning properly -urine culture >100,000 gram negatives, pending sensitivities-> Meropenem IV q 6 hours -Maintain contact isolation precautions - patient with history of ESBL UTI in the past CT abd pelvis with nothing acute, Moderate stool load, Intra abdominal Lymphnode with recommended follow up Pt requests enema and go lytely -Zofran PRN nausea -Tylenol PRN pain/COOK -Exchange Berg catheter order placed -Continue Oxybutynin (2) Hypertension: Plan: Chronic. -Continue Lisinopril (3) Diabetes mellitus, type 2: Plan: Blood sugar 181 on intake labs. Patient takes Metformin at home -Hold Metformin -Lantus 7u BID -ISS -Goal blood sugar 110 - 140 (4) Sacral wound: Plan: Noted. Improved see wound care nurse, no open areas seen chair cushion and waffle boots Plan Ppx - Lovenox Code - Full Mildly enlarged mesenteric lymph node which is nonspecific. A follow-up CT of the abdomen and pelvis in 6 months is recommended. Admission and Anticipated Discharge Date Admission Date: November 06, 2023 Subjective very pleasant obviously limited, pt biggest concern is constipation at this time Physical Exam Physical Exam: Pt with slow speech, previous TBI-> baseline L hemiplegia and L facial droop now s/p critical illness myopathy, discharged to rehab with impaired gait and stability cardiac exam is regular lungs are diminished at the bases abd is soft and non tender, full, dull Results & Data Results & Data Vital Signs (Past 12 Hours) Vital Signs Temp Pulse Pulse Resp BP Pulse Ox O2 Del Method 11/07/23 07:17 98.1 F 73 16 143/69 H 94 Room Air 11/06/23 22:02 Room Air 11/06/23 22:02 98.4 F 68 18 164/86 H 94 Room Air 11/06/23 21:19 99.0 F 72 19 156/83 H 95 Room Air Laboratory Results reviewed cbc reviewed chemistry PG Care Time/CCT Total # of Minutes Spent Total Time Spent with Patient: Total time spent is greater than 50% in coordination of care (as documented) at patient's floor/unit and/or counseling patient: Coding Level of Care Code 09633 SUB INP/OBS CARE 2/35MIN Diagnoses Acute UTI N39.0 Hypertension I10 Diabetes mellitus, type 2 E11.9 Sacral wound S31.000A
[2023-11-07] MEDS: carBAMazepine XR 200 MG TABCR PO SCH (09:22)
[2023-11-07] MEDS: DIVALPROEX DELAY RELEASE 500 MG TAB PO SCH (09:22)
[2023-11-07] MEDS: lisinopril 2.5 MG TAB PO SCH (09:22)
[2023-11-07] MEDS: FLUTICASONE FUROATE 100MCG 14 PUFFS/INHALER INH SCH (09:23)
[2023-11-07] MEDS: BACLOFEN 10 MG TAB PO SCH (09:23)
[2023-11-07] MEDS: UMECLIDINIUM/VILANTEROL 62.5/25MCG 7 PUFFS/INHALER INH SCH (09:23)
[2023-11-07] MEDS: ACETAMINOPHEN 325 MG TAB PO PRN (15:58)
--- NOTE | 2023-11-07 17:15 | Hospitalist Progress Note ---
Date of Service November 07, 2023 Assessment & Plan (1) Acute UTI: Plan: Metabolic encephalopathy on presentation 62yo male with recent admission to [facility] for sepsis and PNA, transfer to [facility] 10/17-present. presenting with headache, nausea and vomiting. PT has has chronic berg due to complications of TBI (baseline L hemipelegia and facial droop plus cognitive limitations) Patient's symptoms are similar to prior ESBL UTIs. Given complaint of nausea and vomiting, CT of the head was obtained due to history of DANCE HISTORIAN shunt - appears to be in place and functioning properly -urine culture >100,000 gram negatives, pending sensitivities-> Meropenem IV q 6 hours UTI due to indwelling Berg catheter, a complication of care -Maintain contact isolation precautions - patient with history of ESBL UTI in the past CT abd pelvis with nothing acute, Moderate stool load, Intra abdominal Lymphnode with recommended follow up Pt requests enema and go lytely -Zofran PRN nausea -Tylenol PRN pain/COOK -Exchange Berg catheter order placed -Continue Oxybutynin (2) Hypertension: Plan: Chronic. -Continue Lisinopril (3) Diabetes mellitus, type 2: Plan: Blood sugar 181 on intake labs. Patient takes Metformin at home -Hold Metformin -Lantus 7u BID -ISS -Goal blood sugar 110 - 140 (4) Sacral wound: Plan: Noted. Improved see wound care nurse, no open areas seen chair cushion and waffle boots Plan Ppx - Lovenox Code - Full Mildly enlarged mesenteric lymph node which is nonspecific. A follow-up CT of the abdomen and pelvis in 6 months is recommended. Admission and Anticipated Discharge Date Admission Date: November 06, 2023 Results & Data Results & Data Vital Signs (Past 12 Hours) Vital Signs Temp Pulse Resp BP Pulse Ox O2 Del Method 11/07/23 15:48 98.1 F 57 L 18 133/68 95 Room Air 11/07/23 07:20 Room Air 11/07/23 07:17 98.1 F 73 16 143/69 H 94 Room Air PG Care Time/CCT Total # of Minutes Spent Total Time Spent with Patient: Total time spent is greater than 50% in coordination of care (as documented) at patient's floor/unit and/or counseling patient: Coding Level of Care Code None Diagnoses Acute UTI N39.0 Hypertension I10 Diabetes mellitus, type 2 E11.9 Sacral wound S31.000A
--- NOTE | 2023-11-07 19:30 | Electrocardiogram Report ---
Test Reason : Blood Pressure : / mmHG Vent. Rate : 066 BPM Atrial Rate : 066 BPM P-R Int : 184 ms QRS Dur : 094 ms QT Int : 408 ms P-R-T Axes : 040 005 033 degrees QTc Int : 427 ms Normal sinus rhythm with sinus arrhythmia Normal ECG No previous ECGs available Confirmed by Buzz Yarbrough ([id number]) on 11/07/2023 7:30:31 PM Referred By: Radha Martin Confirmed By:Buzz Yarbrough
[2023-11-07] MEDS: MELATONIN 3 MG TAB PO SCH (21:14)
[2023-11-07] MEDS: ATORVASTATIN 20 MG TAB PO SCH (21:16)
[2023-11-07] MEDS: OXYBUTYNIN CHLORIDE XL 5 MG TABCR PO SCH (21:16)
[2023-11-08] MEDS: PIPER/TAZO 4.5g in D5W MINI-B 100 ML IV ONE (10:08)
[2023-11-08 10:22] LABS: Basophils # (auto) 0.03 K/uL (0.00-0.20); Basophils % (auto) 0.3 %; Eosinophils # (auto) 0.05 K/uL (0.00-0.50); Eosinophils % (auto) 0.5 %; Hematocrit (blood only) 39.1 % (42.0-52.0); Hemoglobin 12.9 g/dl (14.0-18.0); Immature Granulocytes # (auto) 0.05 K/uL (0.01-0.20); Immature Granulocytes % (auto) 0.5 %; Lymphocytes # (auto) 2.45 K/uL (1.20-3.40); Lymphocytes % (auto) 25.3 %; Mean Corpuscular Hemoglobin 28.9 pg (25.0-34.0); Mean Corpuscular Volume 87.5 fL (80.0-100.0); Mean Platelet Volume 9.5 fL (9.4-12.4); Monocytes # (auto) 0.56 K/uL (0.11-0.59); Monocytes % (auto) 5.8 %; Neutrophils # (auto) 6.53 K/uL (1.40-6.50); Neutrophils % (auto) 67.6 %; Platelet Count 405 K/uL (130-400); RDW Coefficient of Variation 14.1 % (11.5-14.5); RDW Standard Deviation 44.9 fL (36.4-46.3); Red Blood Count 4.47 M/uL (4.70-6.10); White Blood Count 9.67 K/ul (4.8-10.8)
[2023-11-08 10:37] LABS: BUN Creatinine Ratio 20.4 (10-20); Calcium 9.2 mg/dl (8.6-10.3); Creatinine Clr Calc Pharmacy 145.9 ml/min; Est GFR (African American) 132.3 ml/min; Est GFR (Non-African American) 114.1 ml/min; Potassium 3.7 mmol/L (3.5-5.1)
[2023-11-08] MEDS: ONDANSETRON INJ 2 MG/ML 2 ML VIAL IV PRN (12:12)
[2023-11-08] MEDS ORDERED: ALBUT/IPRATROP 3MG/0.5MG NEB 3 ML VIAL NEB PRN (14:58)
--- NOTE | 2023-11-08 15:01 | Hospitalist Progress Note ---
Date of Service November 08, 2023 Assessment & Plan (1) Acute UTI: Plan: Metabolic encephalopathy on presentation 62yo male with recent admission to [facility] for sepsis and PNA as well as a buttock abscess in early September, discharged to [facility] and eventually transfer to [facility] 10/17-11/02. 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 and working appropriately PT has has chronic berg due to chronic urge incontinence and neurogenic bladder, but not due to urinary retention UTI due to indwelling Berg catheter, a complication of care Urine culture growing Pseudomonas resistant to fluoroquinolones and meropenem Switch meropenem to Zosyn and complete 7-day course on 11/15/2023 Berg catheter was exchanged this admission Symptoms are improved/resolved Continue bowel regimen-add on senna/docusate Consider removal of Berg catheter as per my discussion with sister-he does follow with urology and there have been discussions in the past about a trial of sacral neuromodulation/Axonics procedure Continue oxybutynin (2) Lytic lesion of bone on x-ray: Plan: Left sixth rib expansile lesion seen on CT scan of the chest from outside hospital Sister also mentions there was note of pulmonary nodules and given the persistent small pleural effusion, history of smoking, there is concern for malignancy Will repeat chest CT and consult pulmonology for further evaluation May need biopsy of bone lesion with IR which can be arranged as an outpatient (3) Diabetes mellitus, type 2: Plan: Blood sugars here are mildly elevated -Hold Metformin from home -Continue Lantus 7u BID -Tighten down ISS by lowering correction factor to 35 and carb ratio to 1-20 -Goal blood sugar 110 - 140 (4) Pleural effusion: Plan: Small pleural effusion, not large enough to perform thoracentesis but will consult pulmonology given concern with pulmonary nodule and rib bone lesion Follow imaging (5) Hypertension: Plan: Chronic. BP is controlled -Continue Lisinopril (6) Sacral wound: Plan: Noted. 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 A follow-up CT of the abdomen and pelvis in 6 months is recommended. Ppx - Lovenox Code - Full disposition-he will need IV antibiotics-needs SNF/rehab placement Admission and Anticipated Discharge Date Admission Date: November 06, 2023 Subjective Patient reports some shortness of breath and wheezing overnight which improved on its own. He has not moved his bowels in 4 days and would like something to help with this. His sister is at the bedside. She is concerned about the rib lesion that he has on the pleural effusion. She is requesting that he be seen by pulmonology. Patient denies productive cough, no chest pain. Physical Exam Constitutional: WD/WN, vitals as above Respiratory: normal respiratory effort; no cough Auscultation: lungs clear to auscultation bilaterally Cardiovascular: RRR, no murmur, no edema Gastrointestinal (Abdomen): normal bowel sounds, soft, nontender, no h epatosplenomegaly Genitourinary: Berg catheter in place draining clear yellow urine Results & Data Results & Data Vital Signs (Past 12 Hours) Vital Signs Temp Pulse Resp BP Pulse Ox O2 Del Method 11/08/23 07:52 Room Air 11/08/23 07:41 36.5 C 60 18 125/79 91 Room Air Laboratory Results CBC, BMP, urine culture reviewed Diagnostic Findings CT chest reviewed PG Care Time/CCT Total # of Minutes Spent Total Time Spent with Patient: Total time spent is greater than 50% in coordination of care (as documented) at patient's floor/unit and/or counseling patient: Coding Level of Care Code 47364 SUB INP/OBS CARE 3/50MIN Diagnoses Acute UTI N39.0 Lytic lesion of bone on x-ray M89.9 Diabetes mellitus, type 2 E11.9 Pleural effusion J90 Hypertension I10 Sacral wound S31.000A Seizure disorder G40.909 Left hemiparesis G81.94 Tobacco use disorder F17.200
[2023-11-08] MEDS: PIPER/TAZO 4.5g in D5W MINI-B 100 ML IV SCH (17:19)
[2023-11-08] MEDS: DOCUSATE SODIUM/SENNA 50/8.6MG TAB PO SCH (17:19)
--- NOTE | 2023-11-08 17:45 | CT Scan Report ---
CT chest diagnostic wo con CT DOSE: 819.12 mGy.cm CLINICAL HISTORY: 62 years-old Male with pulm nodule,left 6th rib lesion,pleural effusion. Acute mariya rtness of breath TECHNIQUE: Multiaxial CT images of the chest were performed without contrast. A dose lowering techni que was utilized adhering to the principles of ALARA. COMPARISON: CT abdomen and pelvis 11/06/2023, 02/23/2022 FINDINGS: No thyroid nodule or lymphadenopathy identified. Mild cardiomegaly. Gynecomastia. Mild chester nary artery calcifications. No thoracic aortic aneurysm. Small left pleural effusion with left basila r pleural thickening redemonstrated. No pneumothorax. The right lung is generally clear with unchange d 4 mm subpleural solid nodule on image 24 series 4 within the medial basal segment right lower lobe. Subsegmental left basilar consolidation. Central airways are patent. No acute pulmonary abnormality. No acute fracture. Expansile lucent process of the lateral left sixth rib on image 153 series 4 has progressed from 2021. IMPRESSION: 1. Small left pleural effusion with associated left pleural thickening redemonstrated, likely chronic . 2. Mild left basilar atelectasis. 3. Indeterminate expansile lucent lesion of the lateral left sixth rib has increased in size from , possibly an enchondroma. ACT 112: Negative or not required by law. Electronically signed by: Bryan Chaves M.D. 11/08/2023 5:43 PM
--- NOTE | 2023-11-08 18:26 | Pulmonary Consultation ---
Date of Consultation November 08, 2023 Assessment & Plan (1) Pleural effusion: (2) Lytic lesion of bone on x-ray: (3) Tobacco use disorder: (4) Multiple pulmonary nodules: (5) History of tracheostomy: Plan CT chest 11/08/2023 personally reviewed: Motion degraded study Small right upper lobe pulmonary nodule, 4 mm right lower lobe pulmonary nodule Dependent atelectasis bilateral lower lobes, left greater than right Small left-sided pleural effusion No significant mediastinal lymphadenopathy Of the reading says expansile lucent lesion of the left lateral sixth rib, possible enchondroma -- Pleural effusion Minimal Not enough to have any intervention Continue with diuretics --Multiple pulmonary nodules Up to 4 mm Recommend CAT scan of the chest in 1 year On Trelegy 100 inhaler at home -- Left lateral sixth rib lesion Official reading says possible enchondroma -- Ex-smoker [id number] smoking history Encouraged to continue abstinence from smoking Plan: Minimal left-sided pleural effusion, continue with diuretics. No intervention from pulmonary perspective Minimal dependent atelectasis bilateral lower lobes which should improve with incentive spirometry. Multiple pulmonary nodules, up to 4 mm, recommend repeating a CAT scan of the chest in 1 year For the rib lesion, PET/CT has been ordered by as an outpatient. I do not think rib lesion has anything to do with his lungs. Case was discussed with primary team Please note the above document was generated using voice recognition software. It may contain grammatical, syntax or spelling errors.Any formal questions or concerns about the content, text or information contained within the body of this dictation should be directly addressed to the provider for clarification. History of Present Illness Attending Physician: Carmen Carlson MD History of Present Illness 62-year-old male was admitted to the hospital because of nausea vomiting and headache Past medical history: Diabetes, hypertension, sacral decubitus, history of TBI at the age of 17 with left-sided paralysis, DIRECTOR ASSET shunt At baseline patient is wheelchair-bound. At the time of examination patient was saturating 93 to 94% on room air. He was about to have his dinner. He did cough when he was eating. After asking the patient to swallow I continued with my history and physical exam. He denies any issues with his breathing right now. Does complain of occasional cough and brings up clear phlegm. Denies any hemoptysis. No headache or blurry vision No fever or chills No night sweats, patient does state that he has lost approximately 20 pounds unintentionally in the last year or so Social history: Approximately [id number] smoking history, quit September 2023 Allergies Allergy/AdvReac Type Severity Reaction Status Date / Time aspirin AdvReac Mild Anxiety Verified 02/16/23 11:44 [From Excedrin Extra Strength] caffeine AdvReac Mild Anxiety Verified 02/16/23 11:44 [From Excedrin Extra Strength] Home Medications Medication Instructions Recorded Confirmed Type baclofen 10 mg tablet 10 mg PO TID 01/02/18 11/06/23 History carbamazepine 200 mg 200 mg PO BID 01/02/18 11/06/23 History tablet,extended release,12 hr (Tegretol XR) clonazepam 1 mg tablet (Klonopin) 1 mg PO HS PRN Sleep 01/02/18 11/06/23 History divalproex 500 mg tablet,delayed 500 mg PO BID 01/02/18 11/06/23 History release (Depakote) atorvastatin 20 mg tablet 20 mg PO QPM 04/30/18 11/06/23 History lisinopril 5 mg tablet 2.5 mg PO QAM 05/15/19 11/06/23 History acetaminophen 500 mg capsule 1,000 mg PO Q6H PRN Pain 01/12/20 11/06/23 History ciprofloxacin HCl 250 mg tablet 250 mg PO BID 11/06/23 11/06/23 History fluticasone fur. 100 mcg-umeclid 1 inh inhalation DAILY 11/06/23 11/06/23 History 62.5 mcg-vilant 25 mcg inhalat.powder (Trelegy Ellipta) magnesium oxide 400 mg (241.3 mg 400 mg PO QAM 11/06/23 11/06/23 History magnesium) tablet melatonin 3 mg tablet 6 mg PO HS 11/06/23 11/06/23 History metformin 500 mg tablet 500 mg PO BID 11/06/23 11/06/23 History miconazole nitrate 2 % topical 1 applic topical BID PRN Other 11/06/23 11/06/23 History powder (Zeasorb AF) mirabegron 50 mg tablet,extended 50 mg PO QAM 11/06/23 11/06/23 History release 24 hr (Myrbetriq) oxybutynin chloride 15 mg 15 mg PO PM 11/06/23 11/06/23 History tablet,extended release 24 hr sodium hypochlorite 0.25 % 1 applic topical .AFTERNOON 11/06/23 11/06/23 History solution (Dakin's Solution) Patient History Medical History (Updated 11/08/23 @ 18:24 by Elpidio Santiago MD, [facility]) Wheelchair bound Chronic back pain BPH (benign prostatic hyperplasia) Hematest positive stools reason for scheduled colonoscopy Diabetes mellitus, type 2 Temporomandibular joint disorder Hearing loss, right 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 History of head injury 1977 Urine incontinence Stool incontinence Surgical History History of brain shunt History of foot surgery left tendon release History of surgery on left wrist tendon release History of tooth extraction all teeth History of tonsillectomy History of bilateral cataract extraction Family History Sister Family history of diabetes mellitus Uncle Family history of diabetes mellitus Grandmother (Paternal) Family history of diabetes mellitus Other Diabetes Heart disease Hypertension No family history of adverse response to anesthesia Prostate cancer Social History Smoking Status: Former smoker Tobacco Type: Cigarettes Cigarettes Per Day: "heavy" 40 a day; Second Hand Exposure: No; Do You Dip or Chew Tobacco: No; Hx Alcohol Use: No Hx Substance Use: No Preferred Language: Nauruan Communication Ability: Effective Communication Ability Comment: signs own consents Concierge Manager Required: No Beliefs That Will Affect Care: None Current Living Situation: Family Current Living Situation Comment: caregiver there several hours a day current occupational status: disabled Other Information That Helps Us Care for You: No Feels Safe at Home: Yes Safety Concerns: Feels Safe At This Time Assistive Devices: Lift Chair, Wheelchair and Other Review of Systems 2 Review of Systems: All systems reviewed & are unremarkable except as noted in HPI & below and Unobtainable due to cognitive status Physical Exam 2 Physical Exam: Constitutional: No acute distress HEENT: EOMI, PERRLA, thick neck, tracheostomy scar Respiratory system: Decreased air entry bilaterally, no wheeze, rhonchi, mild crackles bilateral lower lobes CVS: S1-S2 positive, no murmurs or gallops Abdomen: Soft, nontender, nondistended, positive bowel sounds x4 Extremities: +2 pulses bilaterally radialis/ dorsalis pedis, no cyanosis, +1 pitting edema bilateral lower extremity Neuro: Awake alert oriented x3 Psych: Normal mood and affect G/U: Positive Bailey Results & Data Results & Data Vital Signs (Past 12 Hours) Vital Signs Temp Pulse Resp BP Pulse Ox O2 Del Method 11/08/23 15:55 36.9 C 62 19 116/71 93 Room Air 11/08/23 07:52 Room Air 11/08/23 07:41 36.5 C 60 18 125/79 91 Room Air Laboratory Results 11/08/23 10:03 11/08/23 10:03 PG Care Time/CCT Total # of Minutes Spent Total Time Spent with Patient: Total time spent is greater than 50% in coordination of care (as documented) at patient's floor/unit and/or counseling patient: Coding Level of Care Code 39063 INT INP/OBS CARE 3/75MIN Diagnoses Pleural effusion J90 Lytic lesion of bone on x-ray M89.9 Tobacco use disorder F17.200 Multiple pulmonary nodules R91.8 History of tracheostomy Z98.890
[2023-11-09 07:23] LABS: Basophils # (auto) 0.05 K/uL (0.00-0.20); Basophils % (auto) 0.5 %; Eosinophils # (auto) 0.11 K/uL (0.00-0.50); Eosinophils % (auto) 1.1 %; Hematocrit (blood only) 38.8 % (42.0-52.0); Hemoglobin 12.8 g/dl (14.0-18.0); Immature Granulocytes # (auto) 0.03 K/uL (0.01-0.20); Immature Granulocytes % (auto) 0.3 %; Lymphocytes # (auto) 3.17 K/uL (1.20-3.40); Mean Corpuscular Hemoglobin 29.4 pg (25.0-34.0); Mean Platelet Volume 9.9 fL (9.4-12.4); Monocytes # (auto) 0.75 K/uL (0.11-0.59); Monocytes % (auto) 7.8 %; Neutrophils % (auto) 57.3 %; Platelet Count 427 K/uL (130-400); RDW Coefficient of Variation 13.9 % (11.5-14.5); RDW Standard Deviation 45.2 fL (36.4-46.3); Red Blood Count 4.36 M/uL (4.70-6.10); White Blood Count 9.61 K/ul (4.8-10.8)
--- NOTE | 2023-11-09 07:27 | Pulmonology Progress Note ---
Date of Service November 09, 2023 Assessment & Plan (1) Pleural effusion: (2) Lytic lesion of bone on x-ray: (3) Tobacco use disorder: (4) Multiple pulmonary nodules: (5) History of tracheostomy: Plan CT chest 11/08/2023 personally reviewed: Motion degraded study Small right upper lobe pulmonary nodule, 4 mm right lower lobe pulmonary nodule Dependent atelectasis bilateral lower lobes, left greater than right Small left-sided pleural effusion No significant mediastinal lymphadenopathy Of the reading says expansile lucent lesion of the left lateral sixth rib, possible enchondroma -- Pleural effusion Minimal Not enough to have any intervention Continue with diuretics --Multiple pulmonary nodules Up to 4 mm Recommend CAT scan of the chest in 1 year On Trelegy 100 inhaler at home -- Left lateral sixth rib lesion Official reading says possible enchondroma PET/CT has been ordered by as an outpatient. I do not think rib lesion has anything to do with his lungs. -- Ex-smoker [id number] smoking history Encouraged to continue abstinence from smoking Absolute eosinophil count 110, were as high as 330 on 02/23/2022 Plan: In/out: -1.9 L, urine output 2400 mL Minimal left-sided pleural effusion, continue with diuretics. No intervention from pulmonary perspective Minimal dependent atelectasis bilateral lower lobes which should improve with incentive spirometry. Case was discussed with primary team as well as patient's Sister Courtney Patient was recently started on Trelegy inhaler on a daily basis. I am not sure if he needs ICS component. If the patient's breathing is not a significant issue I would recommend to titrate it down to either Anoro or Stiolto No further recommendation from pulmonary perspective, will sign off Please call directly with any questions Please note the above document was generated using voice recognition software. It may contain grammatical, syntax or spelling errors.Any formal questions or concerns about the content, text or information contained within the body of this dictation should be directly addressed to the provider for clarification. Admission and Anticipated Discharge Date Admission Date: November 06, 2023 Subjective Patient seen and examined at bedside. No acute distress, no adverse events overnight He was saturating 95-96% on room air. Denies any chest pain, no shortness of breath He does have occasional cough. No difficulty bringing it up. Denied any headache or blurry vision Fair appetite Review of Systems 2 Review of Systems: All systems reviewed & are unremarkable except as noted in Subjective Physical Exam 2 Physical Exam: Constitutional: No acute distress HEENT: EOMI, PERRLA, thick neck, tracheostomy scar Respiratory system: Decreased air entry bilaterally, no wheeze, rhonchi, mild crackles bilateral lower lobes CVS: S1-S2 positive, no murmurs or gallops Abdomen: Soft, nontender, nondistended, positive bowel sounds x4 Extremities: +2 pulses bilaterally radialis/ dorsalis pedis, no cyanosis, +1 pitting edema bilateral lower extremity Neuro: Awake alert oriented x3 Psych: Normal mood and affect G/U: Positive Bailey Skin: no rashes, warm and dry Lymphatic: no cervical or axillary lymphadenopathy Results & Data Results & Data Vital Signs (Past 12 Hours) Vital Signs Temp Pulse Resp BP Pulse Ox O2 Del Method 11/08/23 20:44 37.1 C 67 18 94/68 L 95 Room Air Laboratory Results 11/09/23 06:56 11/09/23 06:56 PG Care Time/CCT Total # of Minutes Spent Total Time Spent with Patient: Total time spent is greater than 50% in coordination of care (as documented) at patient's floor/unit and/or counseling patient: Coding Level of Care Code 22118 SUB INP/OBS CARE 2/35MIN Diagnoses Pleural effusion J90 Lytic lesion of bone on x-ray M89.9 Tobacco use disorder F17.200 Multiple pulmonary nodules R91.8 History of tracheostomy Z98.890
[2023-11-09 07:47] LABS: BUN Creatinine Ratio 20.8 (10-20); Calcium 9.3 mg/dl (8.6-10.3); Creatinine Clr Calc Pharmacy 148.7 ml/min; Est GFR (African American) 133.3 ml/min; Potassium 3.9 mmol/L (3.5-5.1)
--- NOTE | 2023-11-09 14:11 | Hospitalist Progress Note ---
Date of Service November 09, 2023 Assessment & Plan (1) Acute UTI: Plan: Metabolic encephalopathy on presentation 62yo male with recent admission to [facility] for sepsis and PNA as well as a buttock abscess in early September, discharged to [facility] and eventually transfer to [facility] 10/17-11/02. Once he was at home, he developed N/V, and a headache similar to when he had a UTIs in the past CT head negative and CT abdomen/pelvis showed that EDUCATIONAL AID shunt is in place and working appropriately PT has has chronic berg due to chronic urge incontinence and neurogenic bladder, but not due to urinary retention UTI due to indwelling Berg catheter, a complication of care Urine culture growing Pseudomonas resistant to fluoroquinolones and meropenem Initially was on meropenem x 2 days and then changed to Zosyn once urine culture returned and will complete 7-day course on the evening of 11/14/2023 Berg catheter was exchanged this admission Symptoms are resolved Continue bowel regimen-on senna/docusate and add on bisacodyl Consider removal of Berg catheter as per my discussion with sister-he does follow with urology and there have been discussions in the past about a trial of sacral neuromodulation/Axonics procedure Continue oxybutynin He will need an ultrasound-guided peripheral IV placed at the time of discharge to finish out IV antibiotics (he does not need a PICC as it would likely only be a few more days) (2) Lytic lesion of bone on x-ray: Plan: Left sixth rib expansile lesion seen on CT scan of the chest from outside hospital Sister also mentions there was note of pulmonary nodules and given the persistent small pleural effusion, history of smoking, there is concern for malignancy Performed chest CT here which only shows two 4 mm nodules which will require CT the chest in 12 months. Left sixth rib lesion is bigger than previous and may be consistent with enchondroma Appreciate pulmonology consultation for further evaluation-he does not think this is related to any process in the lungs May need biopsy of bone lesion with IR which can be arranged as an outpatient by PCP Could also consider PET scan as an outpatient (3) Diabetes mellitus, type 2: Plan: Blood sugars here are mildly elevated and now improving -Hold Metformin from home -Continue Lantus 7u BID -Tighten down ISS by lowering correction factor to 35 and carb ratio to 1-20 -Goal blood sugar 110 - 140 (4) Pleural effusion: Plan: Small pleural effusion, not large enough to perform thoracentesis Appreciate pulmonology consultation-no need for thoracentesis This is stable in size from outside CT chest reviewed by pulmonology from 09/16/2023 May be related to previous pneumonia versus heart failure Start Lasix 20 mg daily (5) Hypertension: Plan: Chronic. BP is controlled -Continue Lisinopril (6) Sacral wound: Plan: Noted. 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 A follow-up CT of the abdomen and pelvis in 6 months is recommended. Ppx - Lovenox Code - Full disposition-he will need IV antibiotics-needs SNF/rehab placement-case management placed referrals for rehab. He is medically stable for discharge at this time when rehab is available. Admission and Anticipated Discharge Date Admission Date: November 06, 2023 Subjective Patient feeling fairly well today. He is eating and drinking, no headache or nausea or vomiting. He still has not moved his bowels and is requesting a suppository He does report still feeling congested in his chest I discussed his care with pulmonology Physical Exam Constitutional: WD/WN, vitals as above Respiratory: normal respiratory effort; no cough Auscultation: lungs clear to auscultation bilaterally Cardiovascular: RRR, no murmur, no edema Gastrointestinal (Abdomen): normal bowel sounds, soft, nontender, no hepatosplenomegaly Genitourinary: Berg catheter in place draining clear yellow urine Results & Data Results & Data Vital Signs (Past 12 Hours) Vital Signs Temp Pulse Resp BP Pulse Ox O2 Del Method 11/09/23 07:15 36.9 C 59 L 18 111/69 95 Room Air Laboratory Results CBC, BMP, blood cultures, urine culture reviewed PG Care Time/CCT Total # of Minutes Spent Total Time Spent with Patient: Total time spent is greater than 50% in coordination of care (as documented) at patient's floor/unit and/or counseling patient: Coding Level of Care Code 92018 SUB INP/OBS CARE 2/35MIN Diagnoses Acute UTI N39.0 Lytic lesion of bone on x-ray M89.9 Diabetes mellitus, type 2 E11.9 Pleural effusion J90 Hypertension I10 Sacral wound S31.000A Seizure disorder G40.909 Left hemiparesis G81.94 Tobacco use disorder F17.200
[2023-11-09] MEDS: FUROSEMIDE 20 MG TAB PO SCH (15:06)
[2023-11-09] MEDS: bisacodyL 10 MG SUPP PR STA (22:32)
[2023-11-10 07:16] LABS: Basophils # (auto) 0.04 K/uL (0.00-0.20); Basophils % (auto) 0.4 %; Eosinophils # (auto) 0.15 K/uL (0.00-0.50); Eosinophils % (auto) 1.4 %; Hematocrit (blood only) 40.1 % (42.0-52.0); Hemoglobin 13.1 g/dl (14.0-18.0); Immature Granulocytes # (auto) 0.02 K/uL (0.01-0.20); Immature Granulocytes % (auto) 0.2 %; Lymphocytes # (auto) 3.17 K/uL (1.20-3.40); Lymphocytes % (auto) 29.7 %; Mean Corpuscular Hemoglobin 28.7 pg (25.0-34.0); Mean Corpuscular Hgb Conc 32.7 g/dL (32.0-36.0); Mean Corpuscular Volume 87.9 fL (80.0-100.0); Mean Platelet Volume 9.6 fL (9.4-12.4); Monocytes # (auto) 0.74 K/uL (0.11-0.59); Monocytes % (auto) 6.9 %; Neutrophils # (auto) 6.57 K/uL (1.40-6.50); Neutrophils % (auto) 61.4 %; Platelet Count 394 K/uL (130-400); RDW Standard Deviation 44.3 fL (36.4-46.3); Red Blood Count 4.56 M/uL (4.70-6.10); White Blood Count 10.69 K/ul (4.8-10.8)
[2023-11-10 07:44] LABS: BUN Creatinine Ratio 27.5 (10-20); Calcium 9.2 mg/dl (8.6-10.3); Creatinine Clr Calc Pharmacy 154.5 ml/min; Est GFR (African American) 135.4 ml/min; Est GFR (Non-African American) 116.8 ml/min; Magnesium 1.6 mg/dl (1.7-2.4); Potassium 3.8 mmol/L (3.5-5.1)
--- NOTE | 2023-11-10 13:10 | Hospitalist Progress Note ---
Date of Service November 10, 2023 Assessment & Plan (1) Metabolic encephalopathy: Plan: Acute metabolic encephalopathy, secondary to UTI. Present on admission, CT head did not show any acute pathology. Now resolved Patient back to baseline. (2) Acute UTI: Plan: PT has has chronic berg due to chronic urge incontinence and neurogenic bladder, but not due to urinary retention UTI due to indwelling Berg catheter, a complication of care Urine culture growing Pseudomonas resistant to fluoroquinolones and meropenem Initially was on meropenem x 2 days and then changed to Zosyn once urine culture returned and will complete 7-day course on the evening of 11/14/2023 Berg catheter was exchanged this admission, He requests a condom catheter instead he does follow with urology and there have been discussions in the past about a trial of sacral neuromodulation/Axonics procedure Continue oxybutynin He will need an ultrasound-guided peripheral IV placed at the time of discharge to finish out IV antibiotics (he does not need a PICC as it would likely only be a few more days) (3) Lytic lesion of bone on x-ray: Plan: Left sixth rib expansile lesion seen on CT scan of the chest from outside hospital Sister also mentions there was note of pulmonary nodules and given the persistent small pleural effusion, history of smoking, there is concern for malignancy Performed chest CT here which only shows two 4 mm nodules which will require CT the chest in 12 months. Left sixth rib lesion is bigger than previous and may be consistent with enchondroma Appreciate pulmonology consultation for further evaluation-he does not think this is related to any process in the lungs May need biopsy of bone lesion with IR which can be arranged as an outpatient by PCP Could also consider PET scan as an outpatient (4) Diabetes mellitus, type 2: Plan: Blood sugars here are mildly elevated and now improving -Hold Metformin from home -Continue Lantus 7u BID -Tighten down ISS by lowering correction factor to 35 and carb ratio to 1-20 -Goal blood sugar 110 - 140 (5) Pleural effusion: Plan: Small pleural effusion, not large enough to perform thoracentesis Appreciate pulmonology consultation-no need for thoracentesis This is stable in size from outside CT chest reviewed by pulmonology from 09/16/2023 May be related to previous pneumonia versus heart failure Start Lasix 20 mg daily (6) Hypertension: Plan: Chronic. BP is controlled -Continue Lisinopril (7) Sacral wound: Plan: Noted. 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 A follow-up CT of the abdomen and pelvis in 6 months is recommended. Ppx - Lovenox Code - Full disposition-he will need IV antibiotics-needs SNF/rehab placement-case management placed referrals for rehab. He is medically stable for discharge at this time when rehab is available. Admission and Anticipated Discharge Date Admission Date: November 06, 2023 Subjective Patient seen and examined, feels overall better, has not gotten out of bed very much. Review of Systems Review of Systems: All systems reviewed are negative, apart from the ones contained in the history. Physical Exam Physical Exam: The patient is awake, alert and oriented 3, well developed and well nourished, normocephalic and atraumatic, lying in bed and in no acute distress. HEENT--PERRL, EOMI, mucous membranes and oropharynx mildly dry Neck--supple. No JVD. No bruits. Thyroid normal, trachea midline, no adenopathy. Heart--normal S1 and S2. No murmurs, rubs or gallops. Lungs--clear bilaterally, no respiratory distress, no accessory muscle use. Abdomen--normal bowel sounds and soft. Extremities--no cyanosis or clubbing. No edema. Dermatologic--normal skin turgor, normal color, no abnormal lymph nodes, no rash. Neurologic--cranial nerves II through XII grossly intact. Rheumatologic--normal range of motion. Psychiatric--normal affect. Results & Data Results & Data Vital Signs (Past 12 Hours) Vital Signs Temp Pulse Resp BP Pulse Ox O2 Del Method 07/27/24 07:41 97.7 F 53 L 16 122/77 94 Room Air PG Care Time/CCT Total # of Minutes Spent Total Time Spent with Patient: Total time spent is greater than 50% in coordination of care (as documented) at patient's floor/unit and/or counseling patient: Coding Level of Care Code 61705 SUB INP/OBS CARE 2/35MIN Diagnoses Metabolic encephalopathy G93.41 Acute UTI N39.0 Lytic lesion of bone on x-ray M89.9 Diabetes mellitus, type 2 E11.9 Pleural effusion J90 Hypertension I10 Sacral wound S31.000A Seizure disorder G40.909 Left hemiparesis G81.94 Tobacco use disorder F17.200 Time Spent (min) 35
[2023-11-10] MEDS: MAGNESIUM SULFATE / D5W 1 GM/100 ML BAG IV SCH (14:31)
[2023-11-11 06:44] LABS: Hematocrit (blood only) 41.9 % (42.0-52.0); Hemoglobin 13.6 g/dl (14.0-18.0); Mean Corpuscular Hemoglobin 28.7 pg (25.0-34.0); Mean Corpuscular Hgb Conc 32.5 g/dL (32.0-36.0); Mean Corpuscular Volume 88.4 fL (80.0-100.0); Mean Platelet Volume 9.6 fL (9.4-12.4); Platelet Count 386 K/uL (130-400); RDW Standard Deviation 45.1 fL (36.4-46.3); Red Blood Count 4.74 M/uL (4.70-6.10); White Blood Count 11.28 K/ul (4.8-10.8)
[2023-11-11 07:02] LABS: BUN Creatinine Ratio 23.6 (10-20); Calcium 8.9 mg/dl (8.6-10.3); Creatinine Clr Calc Pharmacy 143.3 ml/min; Est GFR (African American) 131.3 ml/min; Est GFR (Non-African American) 113.3 ml/min; Potassium 4.2 mmol/L (3.5-5.1)
[2023-11-11] MEDS: bisacodyL 10 MG SUPP PR STA (10:50)
--- NOTE | 2023-11-11 12:10 | Hospitalist Progress Note ---
Date of Service November 11, 2023 Assessment & Plan (1) Metabolic encephalopathy: Plan: Acute metabolic encephalopathy, secondary to UTI. Present on admission, CT head did not show any acute pathology. Now resolved Patient back to baseline. (2) Acute UTI: Plan: PT has has chronic berg due to chronic urge incontinence and neurogenic bladder, but not due to urinary retention UTI due to indwelling Berg catheter, a complication of care Urine culture growing Pseudomonas resistant to fluoroquinolones and meropenem Initially was on meropenem x 2 days and then changed to Zosyn once urine culture returned and will complete 7-day course on the evening of 11/14/2023 Berg catheter was exchanged this admission, He requests a condom catheter instead, but he yanked off the catheter by his own admission he does follow with urology and there have been discussions in the past about a trial of sacral neuromodulation/Axonics procedure Continue oxybutynin He will need an ultrasound-guided peripheral IV placed at the time of discharge to finish out IV antibiotics (he does not need a PICC as it would likely only be a few more days) (3) Lytic lesion of bone on x-ray: Plan: Left sixth rib expansile lesion seen on CT scan of the chest from outside hospital Sister also mentions there was note of pulmonary nodules and given the persistent small pleural effusion, history of smoking, there is concern for malignancy Performed chest CT here which only shows two 4 mm nodules which will require CT the chest in 12 months. Left sixth rib lesion is bigger than previous and may be consistent with enchondroma Appreciate pulmonology consultation for further evaluation-he does not think this is related to any process in the lungs May need biopsy of bone lesion with IR which can be arranged as an outpatient by PCP Could also consider PET scan as an outpatient (4) Diabetes mellitus, type 2: Plan: Blood sugars here are mildly elevated and now improving -Hold Metformin from home -Continue Lantus 7u BID -Tighten down ISS by lowering correction factor to 35 and carb ratio to 1-20 -Goal blood sugar 110 - 140 (5) Pleural effusion: Plan: Small pleural effusion, not large enough to perform thoracentesis Appreciate pulmonology consultation-no need for thoracentesis This is stable in size from outside CT chest reviewed by pulmonology from 09/16/2023 May be related to previous pneumonia versus heart failure Start Lasix 20 mg daily (6) Hypertension: Plan: Chronic. BP is controlled -Continue Lisinopril (7) Sacral wound: Plan: Noted. 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 A follow-up CT of the abdomen and pelvis in 6 months is recommended. Ppx - Lovenox Code - Full disposition-he will need IV antibiotics-needs SNF/rehab placement-case management placed referrals for rehab. He is medically stable for discharge at this time when rehab is available. Admission and Anticipated Discharge Date Admission Date: November 06, 2023 Subjective Patient seen and examined, feels overall better, Review of Systems Review of Systems: All systems reviewed are negative, apart from the ones contained in the history. Physical Exam Physical Exam: The patient is awake, alert and oriented 3, well developed and well nourished, normocephalic and atraumatic, lying in bed and in no acute distress. HEENT--PERRL, EOMI, mucous membranes and oropharynx mildly dry Neck--supple. No JVD. No bruits. Thyroid normal, trachea midline, no adenopathy. Heart--normal S1 and S2. No murmurs, rubs or gallops. Lungs--clear bilaterally, no respiratory distress, no accessory muscle use. Abdomen--normal bowel sounds and soft. Extremities--no cyanosis or clubbing. No edema. Dermatologic--normal skin turgor, normal color, no abnormal lymph nodes, no rash. Neurologic--cranial nerves II through XII grossly intact. Rheumatologic--normal range of motion. Psychiatric--normal affect. Results & Data Results & Data Vital Signs (Past 12 Hours) Vital Signs Temp Pulse Resp BP Pulse Ox O2 Del Method 11/11/23 11:14 Room Air 07/28/24 07:30 97.4 F L 57 L 18 136/77 94 Room Air PG Care Time/CCT Total # of Minutes Spent Total Time Spent with Patient: Total time spent is greater than 50% in coordination of care (as documented) at patient's floor/unit and/or counseling patient: Coding Level of Care Code 73183 SUB INP/OBS CARE 2/35MIN Diagnoses Metabolic encephalopathy G93.41 Acute UTI N39.0 Lytic lesion of bone on x-ray M89.9 Diabetes mellitus, type 2 E11.9 Pleural effusion J90 Hypertension I10 Sacral wound S31.000A Seizure disorder G40.909 Left hemiparesis G81.94 Tobacco use disorder F17.200 Time Spent (min) 35
--- NOTE | 2023-11-12 10:41 | Hospitalist Progress Note ---
Date of Service November 12, 2023 Assessment & Plan (1) Metabolic encephalopathy: Plan: Acute metabolic encephalopathy, secondary to UTI. Present on admission, CT head did not show any acute pathology. Now resolved Patient back to baseline. (2) Acute UTI: Plan: PT has has chronic berg due to chronic urge incontinence and neurogenic bladder, but not due to urinary retention UTI due to indwelling Berg catheter, a complication of care Urine culture growing Pseudomonas resistant to fluoroquinolones and meropenem Initially was on meropenem x 2 days and then changed to Zosyn once urine culture returned and will complete 7-day course on the evening of 11/14/2023 Berg catheter was exchanged this admission, He requests a condom catheter instead, but he yanked off the catheter by his own admission he does follow with urology and there have been discussions in the past about a trial of sacral neuromodulation/Axonics procedure Continue oxybutynin He will need an ultrasound-guided peripheral IV placed at the time of discharge to finish out IV antibiotics (he does not need a PICC as it would likely only be a few more days) (3) Lytic lesion of bone on x-ray: Plan: Left sixth rib expansile lesion seen on CT scan of the chest from outside hospital Sister also mentions there was note of pulmonary nodules and given the persistent small pleural effusion, history of smoking, there is concern for malignancy Performed chest CT here which only shows two 4 mm nodules which will require CT the chest in 12 months. Left sixth rib lesion is bigger than previous and may be consistent with enchondroma Appreciate pulmonology consultation for further evaluation-he does not think this is related to any process in the lungs May need biopsy of bone lesion with IR which can be arranged as an outpatient by PCP Could also consider PET scan as an outpatient (4) Diabetes mellitus, type 2: Plan: Blood sugars here are mildly elevated and now improving -Hold Metformin from home -Continue Lantus 7u BID -Tighten down ISS by lowering correction factor to 35 and carb ratio to 1-20 -Goal blood sugar 110 - 140 (5) Pleural effusion: Plan: Small pleural effusion, not large enough to perform thoracentesis Appreciate pulmonology consultation-no need for thoracentesis This is stable in size from outside CT chest reviewed by pulmonology from 09/16/2023 May be related to previous pneumonia versus heart failure Start Lasix 20 mg daily (6) Hypertension: Plan: Chronic. BP is controlled -Continue Lisinopril (7) Sacral wound: Plan: Noted. 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 A follow-up CT of the abdomen and pelvis in 6 months is recommended. Ppx - Lovenox Code - Full disposition-Physical therapy recommends SNF, awaiting authorization Admission and Anticipated Discharge Date Admission Date: November 06, 2023 Subjective Patient seen and examined, feels overall better, Review of Systems 2 Review of Systems: All systems reviewed are negative, apart from the ones contained in the history. Physical Exam Physical Exam: The patient is awake, alert and oriented 3, well developed and well nourished, normocephalic and atraumatic, lying in bed and in no acute distress. HEENT--PERRL, EOMI, mucous membranes and oropharynx mildly dry Neck--supple. No JVD. No bruits. Thyroid normal, trachea midline, no adenopathy. Heart--normal S1 and S2. No murmurs, rubs or gallops. Lungs--clear bilaterally, no respiratory distress, no accessory muscle use. Abdomen--normal bowel sounds and soft. Extremities--no cyanosis or clubbing. No edema. Dermatologic--normal skin turgor, normal color, no abnormal lymph nodes, no rash. Neurologic--cranial nerves II through XII grossly intact. Rheumatologic--normal range of motion. Psychiatric--normal affect. Results & Data Results & Data Vital Signs (Past 12 Hours) Vital Signs Temp Pulse Resp BP Pulse Ox O2 Del Method 11/12/23 07:15 98.2 F 56 L 18 119/71 96 Room Air PG Care Time/CCT Total # of Minutes Spent Total Time Spent with Patient: Total time spent is greater than 50% in coordination of care (as documented) at patient's floor/unit and/or counseling patient: Coding Level of Care Code 27236 SUB INP/OBS CARE 2/35MIN Diagnoses Metabolic encephalopathy G93.41 Acute UTI N39.0 Lytic lesion of bone on x-ray M89.9 Diabetes mellitus, type 2 E11.9 Pleural effusion J90 Hypertension I10 Sacral wound S31.000A Seizure disorder G40.909 Left hemiparesis G81.94 Tobacco use disorder F17.200 Time Spent (min) 35
--- NOTE | 2023-11-12 18:52 | CT Scan Report ---
CT head/brain wo con CLINICAL HISTORY: headache, encephlaopathy Technique: Contiguous axial CT images of the head were acquired from the base of the skull to the shady ellyn without intravenous contrast administration. Images were viewed in brain, subdural and bone [facility]. Automated dose lowering techniques and/or adjustment according to patient size were utilized for this exam. Comparison: Comparison is made to CT head 11/05/2023 Findings: Redemonstration of encephalomalacia in the right hemisphere. A right TILE ERECTOR shunt catheter terminates basil r the midline with no evidence of hydrocephalus. Imaged portions of the paranasal sinuses and mastoid air cells are clear. The orbits appear normal. There are no acute fractures of the calvaria or scalp swelling. Impression: No acute abnormality in particular no evidence of hydrocephalus in this patient with a TILE ERECTOR shunt.. ACT 112: Negative or not required by law. Electronically signed by: Pedro Luis Elizalde M.D. 11/12/2023 6:51 PM
[2023-11-12 20:12] LABS: Appearance Urine Turbid (Clear); Bacteria Urine Automated None Seen (None Seen); Bilirubin Urine Negative (Negative); Blood Urine Negative (Negative); Cast Urine Automated 0-2 /lpf (0-2); Color Urine Yellow; Epithelial Cell Urine Auto 0-2 /hpf (0-2); Glucose Urine UA Negative (Negative); Ketones Urine Negative (Negative); Leukocyte Esterase Urine Negative (Negative); Nitrite Urine Negative (Negative); Protein Urine 1+ (Negative); RBC Urine Automated 0-2 /hpf (0-2); Specific Gravity Urine 1.021 (1.000-1.030); Urobilinogen Urine Negative (Negative); WBC Urine Automated 0-5 /hpf (0-5); pH Urine 8.5 (4.5-7.5)
[2023-11-13] MEDS: clonazePAM 1 MG TAB PO PRN (00:40)
[2023-11-13] MEDS: NAPROXEN 250 MG TAB PO PRN (00:41)
[2023-11-13 07:31] LABS: Hematocrit (blood only) 39.3 % (42.0-52.0); Hemoglobin 13.1 g/dl (14.0-18.0); Mean Corpuscular Hemoglobin 28.7 pg (25.0-34.0); Mean Corpuscular Hgb Conc 33.3 g/dL (32.0-36.0); Mean Platelet Volume 9.5 fL (9.4-12.4); Platelet Count 365 K/uL (130-400); RDW Coefficient of Variation 13.9 % (11.5-14.5); RDW Standard Deviation 43.6 fL (36.4-46.3); Red Blood Count 4.57 M/uL (4.70-6.10); White Blood Count 9.74 K/ul (4.8-10.8)
[2023-11-13 07:54] LABS: BUN Creatinine Ratio 26.2 (10-20); Calcium 9.1 mg/dl (8.6-10.3); Creatinine Clr Calc Pharmacy 129.2 ml/min; Est GFR (African American) 125.8 ml/min; Est GFR (Non-African American) 108.5 ml/min; Potassium 4.1 mmol/L (3.5-5.1)
--- NOTE | 2023-11-13 10:08 | Discharge Summary ---
Date of Service November 13, 2023 Admission HPI Per Admitting Provider Jeffrey Ernandez is a 62yo male presenting with three days of nausea, vomiting and headache. 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 He has a CHIEF OPHTHAL[employer]CH[employer]ICIAN shunt in place and is wheelchair bound. His sister is at bedside and provides majority of the history. She reports that patient has not been well since September 15, 2023 when he presented to [facility] with acute hypoxic respiratory failure and sepsis secondary to LLL pneumonia. He had a CT of the abdomen which revealed a large abscess of the left buttock. He was taken to the OR on 09/20/23 for incision and drainage and was treated with IV antibiotics. He was discharged to [facility] swing bed for rehab on 10/01/23. While at [place] he developed nausea, vomiting and headache and was found to have an ESBL UTI. He was treated with IV Meropenem with improvement. The patient was ultimately transferred to [facility] on 10/18/23. He had diffuse myopathy but functional status improved during his stay there. on 10/30/23 patient again developed nausea, vomiting and headache and was found to have another UTI secondary to ESBL Klebsiella. He was changed to Ciprofloxacin and ultimately discharged home on 11/02/23. Yesterday patient developed recurrence of headache as well as nausea and vomiting. He had 5-6 episodes of non-bloody/non-bilious emesis. Additionally sister reports some ongoing SOB, chills, congestion and cough. No fever, no abdominal pain or diarrhea. Patient with longstanding indwelling Berg catheter for the last year. Sister reports it was changed out last Sunday. UOP appears normal. He has been having worsening bladder spasms - sister does not think he has been getting his Mybetriq or Oxybutynin at rehab. PO intake has been normal. However, patient has had significant weight los 226# --> 190# since September 14. In the ER patient afebrile, HD stable. Admission Exam (Per Admitting) Constitutional The patient is awake, alert and oriented 3, well developed and well nourished, normocephalic and atraumatic, lying in bed and in no acute distress. HEENT--PERRL, EOMI, mucous membranes and oropharynx mildly dry Neck--supple. No JVD. No bruits. Thyroid normal, trachea midline, no adenopathy. Heart--normal S1 and S2. No murmurs, rubs or gallops. Lungs--clear bilaterally, no respiratory distress, no accessory muscle use. Abdomen--normal bowel sounds and soft. Extremities--no cyanosis or clubbing. No edema. Dermatologic--normal skin turgor, normal color, no abnormal lymph nodes, no rash. Neurologic--cranial nerves II through XII grossly intact. Rheumatologic--normal range of motion. Psychiatric--normal affect. Discharge Data Consultations 11/06/23 19:42 ED Decision to Admit Stat 11/08/23 16:45 Consult Pulmonology Routine Hospital Course (1) Metabolic encephalopathy: Acute metabolic encephalopathy, secondary to UTI. Present on admission, CT head did not show any acute pathology. Now resolved Patient back to baseline. (2) Acute UTI: PT has has chronic berg due to chronic urge incontinence and neurogenic bladder, but not due to urinary retention UTI due to indwelling Berg catheter, a complication of care Urine culture growing Pseudomonas resistant to fluoroquinolones and meropenem Initially was on meropenem x 2 days and then changed to Zosyn once urine culture returned and will complete 7-day course on the evening of 11/14/2023 Berg catheter was exchanged this admission, He requests a condom catheter instead, but he yanked off the catheter by his own admission he does follow with urology and there have been discussions in the past about a trial of sacral neuromodulation/Axonics procedure Continue oxybutynin He will continue and complete his IV antibiotics tomorrow 11/14/2023 through the peripheral IV line. (3) Lytic lesion of bone on x-ray: Left sixth rib expansile lesion seen on CT scan of the chest from outside hospital Sister also mentions there was note of pulmonary nodules and given the persistent small pleural effusion, history of smoking, there is concern for malignancy Performed chest CT here which only shows two 4 mm nodules which will require CT the chest in 12 months. Left sixth rib lesion is bigger than previous and may be consistent with enchondroma Appreciate pulmonology consultation for further evaluation-he does not think this is related to any process in the lungs May need biopsy of bone lesion with IR which can be arranged as an outpatient by PCP Could also consider PET scan as an outpatient (4) Diabetes mellitus, type 2: Blood sugars here are mildly elevated and now improving -Hold Metformin from home -Continue Lantus 7u BID -Tighten down ISS by lowering correction factor to 35 and carb ratio to 1-20 -Goal blood sugar 110 - 140 (5) Pleural effusion: Small pleural effusion, not large enough to perform thoracentesis Appreciate pulmonology consultation-no need for thoracentesis This is stable in size from outside CT chest reviewed by pulmonology from 09/16/2023 May be related to previous pneumonia versus heart failure Start Lasix 20 mg daily (6) Hypertension: Chronic. BP is controlled -Continue Lisinopril (7) Sacral wound: Noted. Improved see wound care nurse, no open areas seen Continue chair cushion and waffle boots (8) Seizure disorder: Stable Continue clonazepam, carbamazepine, and Depakote (9) Left hemiparesis: Secondary to traumatic brain injury and stroke requiring craniectomy and [employer]ICIAN shunt when he was a teenager Continue antiseizure medications, baclofen for spasticity Patient is essentially wheelchair-bound (10) Tobacco use disorder: Quit smoking prior to admission and September 2023 Is on maintenance inhalers as an outpatient but has never had formal PFTs Follow-up with pulmonology and/or check PFTs as an outpatient Congratulated on cessation of smoking Plan Mildly enlarged mesenteric lymph node which is nonspecific. A follow-up CT of the abdomen and pelvis in 6 months is recommended. Ppx - Lovenox Code - Full disposition-Discharge to SNF Coding Level of Care Code 41921 INP/OBS DISCH >30 MIN Diagnoses Metabolic encephalopathy G93.41 Acute UTI N39.0 Lytic lesion of bone on x-ray M89.9 Diabetes mellitus, type 2 E11.9 Pleural effusion J90 Hypertension I10 Sacral wound S31.000A Seizure disorder G40.909 Left hemiparesis G81.94 Tobacco use disorder F17.200 Time Spent (min) 35
== END 2023-11-13 14:37 | DRG 698 ==
LOC: ED 15:07 → 3W 20:34 → SUATTDRO 20:34 → 3W 21:43

== ENCOUNTER 2023-12-04 17:18 | Inpatient (IN) ==
--- NOTE | 2023-12-04 17:55 | Emergency Department Note ---
Impression & Plan Complicated urinary tract infection, Seizure disorder, Metabolic encephalopathy, FURNACE COOLER (ventriculoperitoneal) shunt status ED Provider Note NAME: EDELMIRA SERNA AGE: 62 SEX: M : 1960 ARRIVES VIA: Walk-In INFORMANT: Patient ED PROVIDER(S): Fox Parker MD CHIEF COMPLAINT: Confusion, UTI PLAN: Disposition: Admit MEDICAL DECISION MAKING: The patient is a pleasant 70-year-old gentleman with a past medical history of left-sided hemiparesis secondary to traumatic brain injury and stroke remotely requiring craniectomy and FURNACE COOLER shunt when he was a teenager on Baclofen for spasticity, seizure disorder on Depakote and Tegretol, type 2 diabetes, history of 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 Patient's reports that he has had fluctuating daily headaches over the past several weeks in the setting of having admission to [facility] in September and October where he was treated for pneumonia. She reports that his FURNACE COOLER shunt had been assessed repetitively over the past month and showed no acute abnormalities. Patient reports having persistence of cough since he was treated for pneumonia in October. His also reports that he has had increasing staring spells over the past several weeks where he is usually responsive but wonders if he could be having return of seizure episodes. Patient reports he is aware of these moments and maintains consciousness. On evaluation the patient is chronic ill-appearing but no distress, afebrile with stable vital signs. He appears clinically dry. Abdomen is nontender. EKG without overt acute ischemia. CXR negative for acute cardiopulmonary process per my personal preliminary review/interpretation. WBC 10.8 K with neutrophil predominance but no left shift, nonspecific. H/H similar to prior. Platelets within normal limits. Chemistry without metabolic acidosis. BUN/creatinine is 25. Is clinically dry appearance. LFTs are unremarkable. Electrolytes unremarkable. TSH planned. UA is consistent with infection with positive nitrites, leukoesterase and 3+ bacteria with minimal epithelial cells on clean-catch. Depakote level was mildly subtherapeutic. Tegretol level was sent out and is pending. Respiratory bio fire was negative. CT of the head negative for acute normalities. CT of the abdomen pelvis demonstrates findings consistent with cystitis. Treatment was initiated with IV cefepime following blood cultures which per prior urine culture should be effective. Case was discussed with ANAHY Bertrand PAC, with ANAHY Gasca hospitalist who will evaluate the patient for admission. Further management per admitting team. Triage Nursing notes reviewed and agree them. Prior/external medical records reviewed Vital Signs: reviewed Differential diagnosis: Infection, dehydration, metabolic abnormality, hypo/hyperglycemia, electrolyte disturbance, anemia, hypoxia, cardiac sources, intracerebral event, toxicologic, neurologic, as well as other pathologies. ER treatment provided: See below. Diagnostics interpreted by me: Cardiac Monitoring: An order for continuous cardiac monitoring was placed and demonstrated normal sinus rhythm, 62 bpm, no ectopy. Laboratory studies: See below Imaging studies: See below Consultation(s): Case was discussed with ANAHY Bertrand PAC, with ANAHY Gasca hospitalist who will evaluate the patient for admission. 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 Patient's reports that he has had fluctuating daily headaches over the past several weeks in the setting of having admission to [facility] in September and October where he was treated for pneumonia. She reports that his FURNACE COOLER shunt had been assessed repetitively over the past month and showed no acute abnormalities. Patient reports having persistence of cough since he was treated for pneumonia in October. His also reports that he has had increasing staring spells over the past several weeks where he is usually responsive but wonders if he could be having return of seizure episodes. Patient reports he is aware of these moments and maintains consciousness. ROS: See above HPI for pertinent positives & negatives. A total of 10 systems reviewed and were otherwise negative. VITALS:See Below PHYSICAL EXAMINATION: GENERAL: Awake, alert, chronically ill-appearing, in no distress HENT: Normocephalic, atraumatic. Oropharynx with dry mucous membranes and otherwise unremarkable. EYES: Normal conjunctiva. Sclera non-icteric. NECK: Supple. No nuchal rigidity. FROM. No JVD. RESPIRATORY: Clear to auscultation. CARDIAC: Regular rate, normal rhythm. Extremities warm and well perfused. Pulses equal. ABDOMEN: Soft, non-distended. No tenderness to palpation. No rebound or guarding. No masses. MUSCULOSKELETAL: Chest examination reveals no tenderness. The back is symmetrical on inspection without obvious abnormality. There is no CVA tenderness to palpation. No joint edema. LOWER EXTREMITIES: Calves are equal size bilaterally and non-tender. No edema. No discoloration. NEURO: Patient is alert and oriented, answering questions appropriately. Left- sided hemiparesis at baseline SKIN: No rash or jaundice noted. Fox Parker MD Past Med/Surg History Problem List (Updated 12/05/23 @ 04:33 by Fox Parker MD) FURNACE COOLER (ventriculoperitoneal) shunt status (Acute) Complicated urinary tract infection (Acute) Altered mental status Metabolic encephalopathy (Acute) Multiple pulmonary nodules Pleural effusion Lytic lesion of bone on x-ray Sacral wound Acute UTI (Acute) UTI symptoms Urinary retention Encounter for pre-operative examination Rigidity (Chronic) Left upper extremity Eustachian tube dysfunction (Chronic) Spasticity (Chronic) Left upper extremity Urinary frequency (Acute) Nocturia (Acute) Neurogenic bladder (Acute) Enlarged prostate with lower urinary tract symptoms (LUTS) (Acute) Urge incontinence of urine Fecal occult blood test positive GERD (gastroesophageal reflux disease) History of cranial surgery (Chronic) 1977 History of tracheostomy (Chronic) no longer has Chronic rhinitis (Chronic) Tobacco use disorder (Chronic) Laryngitis, chronic (Chronic) GERD (gastroesophageal reflux disease) (Chronic) Seizure disorder (Chronic) at least 20yrs since last, grand mal and silent type--follows with Dr. Unger, on medication Left hemiparesis (Chronic) status post head injury--wheelchair bound, brace left lower leg, can stand to transfer Hypertension (Chronic) Medical History (Updated 12/05/23 @ 04:33 by Fox Parker MD) Wheelchair bound Chronic back pain BPH (benign prostatic hyperplasia) Hematest positive stools reason for scheduled colonoscopy Diabetes mellitus, type 2 Temporomandibular joint disorder Hearing loss, right 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 History of head injury 1977 Urine incontinence Stool incontinence Surgical History (Updated 12/05/23 @ 04:33 by Fox Parker MD) History of brain shunt History of foot surgery left tendon release History of surgery on left wrist tendon release History of tooth extraction all teeth History of tonsillectomy History of bilateral cataract extraction Family History Sister Family history of diabetes mellitus Uncle Family history of diabetes mellitus Grandmother (Paternal) Family history of diabetes mellitus Other Diabetes Heart disease Hypertension No family history of adverse response to anesthesia Prostate cancer Social History Smoking Status: Never smoker Tobacco Type: Cigarettes Cigarettes Per Day: "heavy" 40 a day; Second Hand Exposure: No; Do You Dip or Chew Tobacco: No; Hx Alcohol Use: No Hx Substance Use: No Preferred Language: Zambian Communication Ability: Effective Communication Ability Comment: signs own consents Educational Adviser Required: No Beliefs That Will Affect Care: None Current Living Situation: Family Current Living Situation Comment: caregiver there several hours a day current occupational status: disabled Other Information That Helps Us Care for You: No Feels Safe at Home: Yes Safety Concerns: Feels Safe At This Time Assistive Devices: None Allergies Allergies Allergy/AdvReac Type Severity Reaction Status Date / Time aspirin AdvReac Mild Anxiety Verified 12/04/23 19:55 [From Excedrin Extra Strength] caffeine AdvReac Mild Anxiety Verified 12/04/23 19:55 [From Excedrin Extra Strength] Home Meds Home Medications Medication Instructions Recorded Confirmed baclofen 10 mg tablet 10 mg PO TID 01/02/18 12/04/23 carbamazepine 200 mg 200 mg PO BID 01/02/18 12/04/23 tablet,extended release,12 hr (Tegretol XR) clonazepam 1 mg tablet (Klonopin) 1 mg PO HS PRN Sleep 01/02/18 12/04/23 divalproex 500 mg tablet,delayed 500 mg PO BID 01/02/18 12/04/23 release (Depakote) atorvastatin 20 mg tablet 20 mg PO QPM 04/30/18 12/04/23 acetaminophen 500 mg capsule 1,000 mg PO Q6H PRN Pain 01/12/20 12/04/23 fluticasone fur. 100 mcg-umeclid 1 inh inhalation DAILY 11/06/23 12/04/23 62.5 mcg-vilant 25 mcg inhalat.powder (Trelegy Ellipta) magnesium oxide 400 mg (241.3 mg 400 mg PO QAM 11/06/23 12/04/23 magnesium) tablet melatonin 3 mg tablet 6 mg PO HS 11/06/23 12/04/23 metformin 500 mg tablet 500 mg PO BID 11/06/23 12/04/23 miconazole nitrate 2 % topical 1 applic topical BID PRN Other 11/06/23 12/04/23 powder (Zeasorb AF) mirabegron 50 mg tablet,extended 50 mg PO QAM 11/06/23 12/04/23 release 24 hr (Myrbetriq) oxybutynin chloride 15 mg 15 mg PO PM 11/06/23 12/04/23 tablet,extended release 24 hr lisinopril 2.5 mg tablet 2.5 mg PO DAILY 12/04/23 12/04/23 Results & Data (ED) Vital Signs Vital Signs - 24 hr 12/04/23 17:20 12/04/23 18:51 12/04/23 19:15 Temperature 36.7 C Temperature Source Oral Pulse Rate 64 61 Pulse Rate [Finger] 66 Respiratory Rate 18 18 Blood Pressure 135/71 Blood Pressure [Right Arm] 154/125 H Blood Pressure Mean 92 Blood Pressure Mean [Right Arm] 134 Pulse Oximetry 97 95 Oxygen Delivery Method Room Air Room Air Sepsis Recent Fever Within 48 Hours No Sepsis New/Unexplained Change in Mental Status Yes Sepsis Action Taken by Nursing No Action Required 12/04/23 21:00 Temperature Temperature Source Pulse Rate Pulse Rate [Finger] 73 Respiratory Rate 18 Blood Pressure Blood Pressure [Right Arm] 91/75 L Blood Pressure Mean Blood Pressure Mean [Right Arm] 80 Pulse Oximetry 93 Oxygen Delivery Method Room Air Sepsis Recent Fever Within 48 Hours Sepsis New/Unexplained Change in Mental Status Sepsis Action Taken by Nursing Laboratory Data Attestation: I reviewed the patient's lab results. 12/04/23 18:52 12/04/23 18:52 Lab Results 12/04/23 12/04/23 12/04/23 Range/Units 18:52 18:56 19:12 WBC 10.84 H (4.8-10.8) K/ul RBC 4.53 L (4.70-6.10) M/uL Hgb 13.0 L (14.0-18.0) g/dl Hct 39.4 L (42.0-52.0) % MCV 87.0 (80.0-100.0) fL MCH 28.7 (25.0-34.0) pg MCHC 33.0 (32.0-36.0) g/dL RDW Std Deviation 42.9 (36.4-46.3) fL RDW Coeff of Carlos Eduardo 13.6 (11.5-14.5) % Plt Count 334 (130-400) K/uL MPV 9.8 (9.4-12.4) fL Immature Gran % (Auto) 0.4 % Neut % (Auto) 63.1 % Lymph % (Auto) 28.2 % Hardeman % (Auto) 6.1 % Eos % (Auto) 2.0 % Baso % (Auto) 0.2 % Neut # (Auto) 6.84 H (1.40-6.50) K/uL Lymph # (Auto) 3.06 (1.20-3.40) K/uL Hardeman # (Auto) 0.66 H (0.11-0.59) K/uL Eos # (Auto) 0.22 (0.00-0.50) K/uL Baso # (Auto) 0.02 (0.00-0.20) K/uL Immature Gran # (Auto) 0.04 (0.01-0.20) K/uL PT 10.3 (9.0-12.0) Seconds INR 0.9 (0.9-1.1) Sodium 136 (136-145) mmol/L Potassium 4.2 (3.5-5.1) mmol/L Chloride 99 (98-107) mmol/L Carbon Dioxide 27 (21-32) mmol/L Anion Gap 10 (3-11) BUN 12 (6-23) mg/dl Creatinine 0.47 L (0.6-1.4) mg/dl Est Cr Clr Drug Dosing Not Reportable Est GFR ( Amer) 140.0 ml/min Est GFR (Non-Af Amer) 120.8 ml/min BUN/Creatinine Ratio 25.5 H (10-20) Glucose 239 H (70-99(Fasting)) mg/dl Calcium 9.2 (8.6-10.3) mg/dl Magnesium 1.7 (1.7-2.4) mg/dl Total Bilirubin 0.1 L (0.2-1.0) mg/dl AST 12 L (13-39) U/L ALT 19 (7-52) U/L Alkaline Phosphatase 67 (34-104) U/L Total Protein 7.4 (6.0-8.3) gm/dl Albumin 3.7 (3.4-5.0) gm/dl Globulin 3.7 (2.5-4.0) gm/dl Albumin/Globulin Ratio 1.0 (0.9-2) TSH 2.104 (0.300-4.500) uIu/ml Urine Color Yellow Urine Appearance Cloudy A (Clear) Urine pH 5.5 (4.5-7.5) Ur Specific Grundy 1.030 (1.000-1.030) Urine Protein 2+ H (Negative) Urine Glucose (UA) 3+ H (Negative) Urine Ketones 1+ H (Negative) Urine Blood Negative (Negative) Urine Nitrite Positive A (Negative) Urine Bilirubin Negative (Negative) Urine Urobilinogen Negative (Negative) Ur Leukocyte Esterase Trace H (Negative) Urine WBC (Auto) >50 H (0-5) /hpf Urine RBC (Auto) >20 H (0-2) /hpf U Hyaline Cast (Auto) 3-5 H (0-2) /lpf U Epithel Cells (Auto) 0-2 (0-2) /hpf Urine Bacteria (Auto) 3+ H (None Seen) Urine Yeast Present A (None Prsent) Valproic Acid 33 L (50-100) mcg/ml Adenovirus (PCR) Not Detected (NotDetected) B. pertussis DNA (PCR) Not Detected (NotDetected) B.parapertussis DNA PCR Not Detected (NotDetected) C. pneumoniae DNA (PCR) Not Detected (NotDetected) Coronavirus OC43 (PCR) Not Detected (NotDetected) Coronavirus HKU1 (PCR) Not Detected (NotDetected) Coronavirus 229E (PCR) Not Detected (NotDetected) SARS-CoV-2 (PCR) Not Detected (NotDetected) Coronavirus NL63 (PCR) Not Detected (NotDetected) Human Metapneumovir PCR Not Detected (NotDetected) Influenza Type A (PCR) Not Detected (NotDetected) Influenza Type B (PCR) Not Detected (NotDetected) M. pneumoniae (PCR) Not Detected (NotDetected) Parainfluenza 1 (PCR) Not Detected (NotDetected) Parainfluenza 2 (PCR) Not Detected (NotDetected) Parainfluenza 3 (PCR) Not Detected (NotDetected) Parainfluenza 4 (PCR) Not Detected (NotDetected) RSV (PCR) Not Detected (NotDetected) Entero/Rhino (PCR) Not Detected (NotDetected) Administered Medications Atorvastatin Calcium (Atorvastatin 20 Mg Tab) 20 mg PO QPM ALPESH Stop: 01/04/24 00:18 Last Admin: 12/05/23 01:06 Dose: 20 mg Documented By: JORGE Baclofen (Baclofen 10 Mg Tab) 10 mg PO TID ALPESH Stop: 01/04/24 00:18 Last Admin: 12/05/23 01:06 Dose: 10 mg Documented By: JORGE Lactated Ringer's (Lr) 1,000 mls @ 100 mls/hr IV .Q10H ALPESH Stop: 12/05/23 08:59 Last Admin: 12/05/23 00:47 Dose: 100 mls/hr Documented By: JORGE Melatonin (Melatonin 3 Mg Tab) 6 mg PO HS ALPESH Stop: 01/04/24 00:18 Last Admin: 12/05/23 01:06 Dose: 6 mg Documented By: JORGE Oxybutynin Chloride (Oxybutynin Chloride Xl 5 Mg Tabcr) 15 mg PO PM ALPESH Stop: 01/04/24 00:18 Last Admin: 12/05/23 01:06 Dose: 15 mg Documented By: JORGE Discontinued Medications Carbamazepine (Carbamazepine 200 Mg Tablet) 200 mg PO NOW ONE Stop: 12/04/23 21:04 Last Admin: 12/04/23 21:34 Dose: 200 mg Documented By: KMF Divalproex Sodium (Divalproex Delay Release 500 Mg Tab) 500 mg PO NOW ONE Stop: 12/04/23 21:04 Last Admin: 12/04/23 21:34 Dose: 500 mg Documented By: FREDDIE Sodium Chloride (Nss) 1,000 mls @ 999 mls/hr IV .Q1H1M ONE Stop: 12/04/23 20:38 Last Infusion: 12/04/23 21:06 Dose: Infused Documented By: Admin: 12/04/23 19:47 Dose: 999 mls/hr Documented By: SATYA Acetaminophen (Ofirmev) 1,000 mg in 100 mls @ 400 mls/hr IV NOW STA Stop: 12/04/23 19:52 Last Infusion: 12/04/23 20:58 Dose: Infused Documented By: Admin: 12/04/23 19:47 Dose: 400 mls/hr Documented By: SATYA Cefepime HCl (Maxipime) 2,000 mg in 20 mls @ 5 mls/min IV NOW STA; Protocol Stop: 12/04/23 20:44 Last Admin: 12/04/23 20:45 Dose: 5 mls/min Documented By: SATYA Tobramycin Sulfate 90 mg/ (Dextrose) 102.25 mls @ 100 mls/hr IV Q8H [facility] Stop: 12/14/23 21:14 Last Admin: 12/04/23 21:33 Dose: Not Given Documented By: FREDDIE Gentamicin Sulfate 550 mg/ (Dextrose) 113.75 mls @ 100 mls/hr IV ONE STA Stop: 12/04/23 22:39 Last Admin: 12/05/23 00:21 Dose: Not Given Documented By: JORGE Magnesium Sulfate/Dextrose (Magnesium Sulfate / D5w) 1 gm in 100 mls @ 50 mls/hr IV Q2H [facility]PESH Stop: 12/05/23 03:44 Last Infusion: 12/05/23 04:16 Dose: Infused Documented By: Admin: 12/05/23 00:46 Dose: 50 mls/hr Documented By: Infusion: 12/05/23 00:22 Dose: Infused Documented By: Admin: 12/04/23 22:01 Dose: 50 mls/hr Documented By: FREDDIE Insulin Aspart (Insulin Aspart Per Unit Charge) 0 units SC ONE STA Stop: 12/04/23 21:11 Last Admin: 12/04/23 23:24 Dose: Not Given Documented By: FREDDIE Insulin Aspart (Insulin Aspart Per Unit Charge) 0 units SC TODAY@2109 [facility] Stop: 12/04/23 23:59 Last Admin: 12/04/23 23:26 Dose: 5 units Documented By: CHRISTIANO Co-signed By: FREDDIE Ioversol (Optiray 320 100ml) 91 ml IV ONCE ONE Stop: 12/04/23 20:18 Last Admin: 12/04/23 20:17 Dose: 91 ml Documented By: SURESH Imaging Data Radiologist's Impression: Chest X-Ray 12/04/23 17:52 XR chest 1V portable CLINICAL HISTORY: weakness TECHNIQUE: Single frontal radiograph of the chest was obtained. Comparison: Comparison is made to chest radiograph 11/06/2023 FINDINGS: No lines and tubes are seen. The cardiomediastinal silhouette is normal. Lungs are underinflated but clear. No evidence of pleural effusion or pneumothorax. IMPRESSION: No acute chest disease. ACT 112: Negative or not required by law. Electronically signed by: Pedro Luis Elizalde M.D. 12/04/2023 7:09 PM Abdomen/Pelvis CT 12/04/23 19:29 Exam(s): CT ABDOMEN + PELVIS With Contrast IV Amt: 91 ml opti 320 EXAM: CT Abdomen and Pelvis With Intravenous Contrast CLINICAL HISTORY: Reason for exam: recurrent UTI, confusion, weakness. TECHNIQUE: Axial computed tomography images of the abdomen and pelvis with intravenous contrast. CTDI is 39.02 mGy and DLP is 2193.3 mGy-cm. Automated exposure control was utilized for the study. A dose lowering technique was utilized adhering to the principles of ALARA. CONTRAST: Patient received 91 ml opti 320 of IV contrast COMPARISON: 11/06/2023 FINDINGS: Pleural space: Trace left pleural effusion. ABDOMEN: Liver: Unremarkable. Gallbladder and bile ducts: Unremarkable. Pancreas: Unremarkable. Spleen: Unremarkable. Adrenals: Unremarkable. Kidneys and ureters: Normal enhancement of the kidneys. No pyelonephritis. Cortical cysts on the left kidney. Nonobstructing 3 mm stone in the left renal lower pole. Stomach and bowel: Unremarkable. PELVIS: Appendix: No findings to suggest acute appendicitis. Bladder: Mucosal thickening in the bladder consistent with cystitis. Reproductive: Unremarkable as visualized. ABDOMEN and PELVIS: Intraperitoneal space: Unremarkable. No free air. No significant fluid collection. Bones/joints: No acute fracture. Soft tissues: Unremarkable. Vasculature: Unremarkable. Lymph nodes: Unremarkable. IMPRESSION: 1. Mucosal thickening in the bladder consistent with cystitis. 2. Trace left pleural effusion. Electronically signed by: Matthew Arana MD 12/04/23 22:[address] 12/04/23 19:29 Exam(s): CT HEAD Without Contrast EXAM: CT Head Without Intravenous Contrast CLINICAL HISTORY: Reason for exam: head, confusion. TECHNIQUE: Axial computed tomography images of the head/brain without intravenous contrast. CTDI is 39.02 mGy and DLP is 2193.3 mGy-cm. Automated exposure control was utilized for the study. A dose lowering technique was utilized adhering to the principles of ALARA. COMPARISON: 11/12/2023 FINDINGS: Brain: Encephalomalacia within the right parietal, occipital, and temporal lobes. No intracranial hemorrhage. No edema or mass-effect. Ventricles: Unchanged positioning of the right posterior approach shunt catheter terminating within the anterior corpus callosum. Bones/joints: Unremarkable. No fracture. Soft tissues: Unremarkable. Sinuses: No acute sinusitis. Mastoid air cells: Unremarkable as visualized. IMPRESSION: No acute intracranial abnormality. Electronically signed by: Matthew Arana MD 12/04/23 22:21 PM Discharge Plan Visit Data Chief Complaint: Infection Stated Complaint: POSSIBLE SEPSIS, UTI ED Provider: Fox Parker Discharge Problem: Complicated urinary tract infection, Seizure disorder, Metabolic encephalopathy, FURNACE COOLER (ventriculoperitoneal) shunt status Patient Disposition: Admitted As Inpatient Discharge Instructions Interventions: ED Discharge Assessment Last Done: 12/04/23 23:12
--- NOTE | 2023-12-04 19:10 | XRay Report ---
XR chest 1V portable CLINICAL HISTORY: weakness TECHNIQUE: Single frontal radiograph of the chest was obtained. Comparison: Comparison is made to chest radiograph 11/06/2023 FINDINGS: No lines and tubes are seen. The cardiomediastinal silhouette is normal. Lungs are underinflated but clear. No evidence of pleural effusion or pneumothorax. IMPRESSION: No acute chest disease. ACT 112: Negative or not required by law. Electronically signed by: Pedro Luis Elizalde M.D. 12/04/2023 7:09 PM
[2023-12-04 19:12] LABS: Basophils # (auto) 0.02 K/uL (0.00-0.20); Basophils % (auto) 0.2 %; Eosinophils # (auto) 0.22 K/uL (0.00-0.50); Hematocrit (blood only) 39.4 % (42.0-52.0); Immature Granulocytes # (auto) 0.04 K/uL (0.01-0.20); Immature Granulocytes % (auto) 0.4 %; Lymphocytes # (auto) 3.06 K/uL (1.20-3.40); Lymphocytes % (auto) 28.2 %; Mean Corpuscular Hemoglobin 28.7 pg (25.0-34.0); Mean Platelet Volume 9.8 fL (9.4-12.4); Monocytes # (auto) 0.66 K/uL (0.11-0.59); Monocytes % (auto) 6.1 %; Neutrophils # (auto) 6.84 K/uL (1.40-6.50); Neutrophils % (auto) 63.1 %; Platelet Count 334 K/uL (130-400); RDW Coefficient of Variation 13.6 % (11.5-14.5); RDW Standard Deviation 42.9 fL (36.4-46.3); Red Blood Count 4.53 M/uL (4.70-6.10); White Blood Count 10.84 K/ul (4.8-10.8)
[2023-12-04 19:37] LABS: Alanine Aminotransferase 19 U/L (7-52); Albumin Level 3.7 gm/dl (3.4-5.0); Alkaline Phosphatase 67 U/L (34-104); Anion Gap 10 (3-11); Aspartate Aminotransferase 12 U/L (13-39); BUN Creatinine Ratio 25.5 (10-20); Bilirubin,Total 0.1 mg/dl (0.2-1.0); Blood Urea Nitrogen 12 mg/dl (6-23); Calcium 9.2 mg/dl (8.6-10.3); Carbon Dioxide 27 mmol/L (21-32); Chloride 99 mmol/L (98-107); Est GFR (Non-African American) 120.8 ml/min; Globulin 3.7 gm/dl (2.5-4.0); Glucose 239 mg/dl (70-99(Fasting)); Magnesium 1.7 mg/dl (1.7-2.4); Potassium 4.2 mmol/L (3.5-5.1); Sodium 136 mmol/L (136-145); Total Protein 7.4 gm/dl (6.0-8.3)
[2023-12-04 19:38] LABS: INR 0.9 (0.9-1.1); Prothrombin Time 10.3 Seconds (9.0-12.0)
[2023-12-04] MEDS: SODIUM CHLORIDE 0.9% 1,000 ML IV ONE (19:47)
[2023-12-04] MEDS: ACETAMINOPHEN 1,000 MG/100 ML VIAL IV STA (19:47)
[2023-12-04 19:48] LABS: Appearance Urine Cloudy (Clear); Bacteria Urine Automated 3+ (None Seen); Bilirubin Urine Negative (Negative); Blood Urine Negative (Negative); Color Urine Yellow; Epithelial Cell Urine Auto 0-2 /hpf (0-2); Glucose Urine UA 3+ (Negative); Ketones Urine 1+ (Negative); Leukocyte Esterase Urine Trace (Negative); Nitrite Urine Positive (Negative); Protein Urine 2+ (Negative); RBC Urine Automated >20 /hpf (0-2); Urobilinogen Urine Negative (Negative); WBC Urine Automated >50 /hpf (0-5); pH Urine 5.5 (4.5-7.5)
[2023-12-04 19:52] LABS: Thyroid Stimulating Hormone 2.104 uIu/ml (0.300-4.500)
[2023-12-04 19:56] LABS: Adenovirus PCR Not Detected (NotDetected); Bordetella parapertussis PCR Not Detected (NotDetected); Bordetella pertussis PCR Not Detected (NotDetected); Chlamydia pneumoniae PCR Not Detected (NotDetected); Coronavirus 229E PCR Not Detected (NotDetected); Coronavirus CoV-2 (COVID19)PCR Not Detected (NotDetected); Coronavirus HKU1 PCR Not Detected (NotDetected); Coronavirus NL63 PCR Not Detected (NotDetected); Coronavirus OC43PCR Not Detected (NotDetected); Human Metapneumovirus PCR Not Detected (NotDetected); Influenza A PCR Not Detected (NotDetected); Influenza B PCR Not Detected (NotDetected); Mycoplasma pneumoniae PCR Not Detected (NotDetected); Parainfluenza Virus 1 PCR Not Detected (NotDetected); Parainfluenza Virus 2 PCR Not Detected (NotDetected); Parainfluenza Virus 3 PCR Not Detected (NotDetected); Parainfluenza Virus 4 PCR Not Detected (NotDetected); Respiratory Syncytial VirusPCR Not Detected (NotDetected); Rhinovirus/Enterovirus PCR Not Detected (NotDetected)
[2023-12-04] MEDS: OPTIRAY 320 100ml IV ONE (20:17)
[2023-12-04] MEDS: CEFEPIME 2,000 MG/20 ML VIAL IV STA (20:45)
--- NOTE | 2023-12-04 20:50 | History & Physical Report ---
Date of Service December 04, 2023 Assessment & Plan (1) Complicated urinary tract infection: Plan: Admit to med telemetry Currently stable and nontoxic-appearing Presented to the ED with mild confusion, headache, and foul-smelling urine consistent with previous UTIs Urine does appear infected today, Bailey catheter was placed in the ED will continue for now Was given a dose of cefepime in the ED Due to patient the patient was previously growing Pseudomonas resistant to ciprofloxacin and ofloxacin and meropenem, will continue with cefepime for now Follow urine cultures Fall/aspiration precautions Heart healthy/diabetes mellitus type 2 diet SQ Lovenox for DVT prophylaxis AM CBC, CMP, mag, PT/INR (2) Altered mental status: Plan: Patient's sister reports he gets "foggy" when he gets UTIs Currently completely alert and oriented, sister denies new focal defects Likely due to current UTI and mild dehydration Will wait for final read of CT of the head and brain without contrast but on comparison to previous CT head/brain there does not appear to be acute changes Monitor for improvement with treatment of his acute issues (3) Seizure disorder: Plan: Sister denies recent seizure-like activity Patient did have his a.m. medications Will give his evening dose of Depakote and carbamazepine now Continue Depakote and carbamazepine (4) BPH (benign prostatic hyperplasia): Plan: Long history of urinary retention requiring previous Bailey catheters Bailey catheter was placed in the ED, will continue for now Could consider restarting tamsulosin prior to discharge with voiding trial Can consider urology consult prior to discharge but will hold for now (5) Hypertension: Plan: Currently stable continue lisinopril (6) Tobacco use disorder: Plan: Patient quit smoking approximately 2 months ago Continue to encourage tobacco cessation Plan The patient was discussed with Dr. 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 Patient remained stable in the ED. Labs were significant for a leukocytosis of 10 with mild neutrophil predominance of 6.8, UA with cloudy appearance, 2+ protein, nitrite positive, trace leukocyte esterase, greater than 50 WBC, greater than 20 RBC, 3-5 hyaline cast, and 3+ bacteria, with full respiratory BioFire negative. Chest x-ray was read as negative for acute findings. Prior to admission the patient was given 1 L normal saline, 1 g IV acetaminophen, and a dose of cefepime. Patient was lying in bed no acute distress at the time of exam with his sister/POA at bedside, history is obtained from both. History explained to the patient started to have foul-smelling urine yesterday along with a headache and mild confusion consistent with previous UTIs. They deny recent fevers, patient confirms that he has been taking his home medications as prescribed. Denies recent chest pain, shortness of breath, abdominal pain, nausea/vomiting, hematuria, diarrhea, and recent trauma. Patient's sister states that he follows with urology and has had a long history of urinary retention resistant to previous oral medications. Patient had a Bailey catheter previously but does not prefer to have 1 in which is why it was removed prior to last discharge. They confirm the patient is a full code and his sister is his power of state attorney. Please refer to Dr. Negrete's attestation for any changes to treatment plan Allergies Allergy/AdvReac Type Severity Reaction Status Date / Time aspirin AdvReac Mild Anxiety Verified 12/04/23 19:55 [From Excedrin Extra Strength] caffeine AdvReac Mild Anxiety Verified 12/04/23 19:55 [From Excedrin Extra Strength] Home Medications Medication Instructions Recorded Confirmed Type baclofen 10 mg tablet 10 mg PO TID 01/02/18 12/04/23 History carbamazepine 200 mg 200 mg PO BID 01/02/18 12/04/23 History tablet,extended release,12 hr (Tegretol XR) clonazepam 1 mg tablet (Klonopin) 1 mg PO HS PRN Sleep 01/02/18 12/04/23 History divalproex 500 mg tablet,delayed 500 mg PO BID 01/02/18 12/04/23 History release (Depakote) atorvastatin 20 mg tablet 20 mg PO QPM 04/30/18 12/04/23 History acetaminophen 500 mg capsule 1,000 mg PO Q6H PRN Pain 01/12/20 12/04/23 History fluticasone fur. 100 mcg-umeclid 1 inh inhalation DAILY 11/06/23 12/04/23 History 62.5 mcg-vilant 25 mcg inhalat.powder (Trelegy Ellipta) magnesium oxide 400 mg (241.3 mg 400 mg PO QAM 11/06/23 12/04/23 History magnesium) tablet melatonin 3 mg tablet 6 mg PO HS 11/06/23 12/04/23 History metformin 500 mg tablet 500 mg PO BID 11/06/23 12/04/23 History miconazole nitrate 2 % topical 1 applic topical BID PRN Other 11/06/23 12/04/23 History powder (Zeasorb AF) mirabegron 50 mg tablet,extended 50 mg PO QAM 11/06/23 12/04/23 History release 24 hr (Myrbetriq) oxybutynin chloride 15 mg 15 mg PO PM 11/06/23 12/04/23 History tablet,extended release 24 hr lisinopril 2.5 mg tablet 2.5 mg PO DAILY 12/04/23 12/04/23 History Past Med/Surg History Problem List (Updated 12/04/23 @ 22:35 by Fox Parker MD) Complicated urinary tract infection (Acute) Altered mental status Metabolic encephalopathy Multiple pulmonary nodules Pleural effusion Lytic lesion of bone on x-ray Sacral wound Acute UTI (Acute) UTI symptoms Urinary retention Encounter for pre-operative examination Rigidity (Chronic) Left upper extremity Eustachian tube dysfunction (Chronic) Spasticity (Chronic) Left upper extremity Urinary frequency (Acute) Nocturia (Acute) Neurogenic bladder (Acute) Enlarged prostate with lower urinary tract symptoms (LUTS) (Acute) Urge incontinence of urine Fecal occult blood test positive GERD (gastroesophageal reflux disease) History of cranial surgery (Chronic) 1977 History of tracheostomy (Chronic) no longer has Chronic rhinitis (Chronic) Tobacco use disorder (Chronic) Laryngitis, chronic (Chronic) GERD (gastroesophageal reflux disease) (Chronic) Seizure disorder (Chronic) at least 20yrs since last, grand mal and silent type--follows with Dr. Unger, on medication Left hemiparesis (Chronic) status post head injury--wheelchair bound, brace left lower leg, can stand to transfer Hypertension (Chronic) Medical History (Updated 12/04/23 @ 22:35 by Fox Parker MD) Wheelchair bound Chronic back pain BPH (benign prostatic hyperplasia) Hematest positive stools reason for scheduled colonoscopy Diabetes mellitus, type 2 Temporomandibular joint disorder Hearing loss, right 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 History of head injury 1977 Urine incontinence Stool incontinence Surgical History History of brain shunt History of foot surgery left tendon release History of surgery on left wrist tendon release History of tooth extraction all teeth History of tonsillectomy History of bilateral cataract extraction Family History Sister Family history of diabetes mellitus Uncle Family history of diabetes mellitus Grandmother (Paternal) Family history of diabetes mellitus Other Diabetes Heart disease Hypertension No family history of adverse response to anesthesia Prostate cancer Social History Smoking Status: Never smoker Tobacco Type: Cigarettes Cigarettes Per Day: "heavy" 40 a day; Second Hand Exposure: No; Do You Dip or Chew Tobacco: No; Hx Alcohol Use: No Hx Substance Use: No Preferred Language: Georgian Communication Ability: Effective Communication Ability Comment: signs own consents Survey Operations Director Required: No Beliefs That Will Affect Care: None Current Living Situation: Family Current Living Situation Comment: caregiver there several hours a day current occupational status: disabled Other Information That Helps Us Care for You: No Feels Safe at Home: Yes Safety Concerns: Feels Safe At This Time Assistive Devices: None Physical Exam Physical Exam: Physical Exam: General: In no acute distress, stated age, well-nourished, non-toxic appearing HEENT: Normocephalic, atraumatic, no scleral icterus, pupils around round, symmetrical, and reactive to light, dry mucus membranes, trachea midline, no thyromegaly Chest/Pulm: No respiratory distress, symmetrical chest expansion, decreased breath sounds in the LLE otherwise CTA Cardiac: RRR, no murmurs noted Abdomen: Negative for ascites and bruising, normoactive bowel sounds, soft, non-tender to palpation throughout Musculoskeletal: Baseline left-sided hemiparesis noted, no acute trauma Extremities: Radial, dorsalis pedis, and posterior tibial pulses are intact and symmetrical, no edema noted in the BL LE's Skin: Warm, dry, no rashes , lesions, or scars noted Neuro: Alert and oriented to person, place, month, year, no focal defects, baseline left-sided hemiparesis noted, no acute neurologic changes compared to baseline no tremors noted Psych: No acute distress, calm and cooperative during the exam Results & Data Results & Data Vital Signs (Past 12 Hours) Vital Signs Temp Pulse Pulse Resp BP BP Pulse Ox 12/04/23 19:15 66 18 154/125 H 95 12/04/23 18:51 61 12/04/23 17:20 36.7 C 64 18 135/71 97 O2 Del Method 12/04/23 19:15 Room Air 12/04/23 18:51 12/04/23 17:20 Room Air Laboratory Results Abnormal lab results 12/04/23 12/04/23 Range/Units 18:52 19:12 WBC 10.84 H (4.8-10.8) K/ul RBC 4.53 L (4.70-6.10) M/uL Hgb 13.0 L (14.0-18.0) g/dl Hct 39.4 L (42.0-52.0) % Neut # (Auto) 6.84 H (1.40-6.50) K/uL [place] # (Auto) 0.66 H (0.11-0.59) K/uL Creatinine 0.47 L (0.6-1.4) mg/dl BUN/Creatinine Ratio 25.5 H (10-20) Glucose 239 H (70-99(Fasting)) mg/dl Total Bilirubin 0.1 L (0.2-1.0) mg/dl AST 12 L (13-39) U/L Urine Appearance Cloudy A (Clear) Urine Protein 2+ H (Negative) Urine Glucose (UA) 3+ H (Negative) Urine Ketones 1+ H (Negative) Urine Nitrite Positive A (Negative) Ur Leukocyte Esterase Trace H (Negative) Urine WBC (Auto) >50 H (0-5) /hpf Urine RBC (Auto) >20 H (0-2) /hpf U Hyaline Cast (Auto) 3-5 H (0-2) /lpf Urine Bacteria (Auto) 3+ H (None Seen) Urine Yeast Present A (None Prsent) Valproic Acid 33 L (50-100) mcg/ml Diagnostic Findings Chest X-Ray 12/04/23 17:52 XR chest 1V portable CLINICAL HISTORY: weakness TECHNIQUE: Single frontal radiograph of the chest was obtained. Comparison: Comparison is made to chest radiograph 11/06/2023 FINDINGS: No lines and tubes are seen. The cardiomediastinal silhouette is normal. Lungs are underinflated but clear. No evidence of pleural effusion or pneumothorax. IMPRESSION: No acute chest disease. ACT 112: Negative or not required by law. Electronically signed by: Pedro Luis Elizalde M.D. 12/04/2023 7:09 PM Code Status & VTE Plan Code Status Full code VTE Prophylaxis Plan VTE Prophylaxis will be ordered: Yes Supervising Physician Co-Signing Physician Notes Attending addendum: I have physically seen this patient, have supervised the KESHIA's activities, and agree with the H&P unless as otherwise noted. Assessment and Plan: Recurrent complicated urinary tract infection/bladder spasms- Admit to medical telemetry Follow urine culture and sensitivity CT scan demented pelvis shows mucosal thickening in the bladder consistent with cystitis Most recent admission from 11/05-11/13/2023 for Pseudomonas urinary tract infection with multiple resistances to fluoroquinolones and meropenem Cefepime 2 g IV every 12 hours Continue mirabegron and oxybutynin Altered mental status/seizure disorder- Patient's sister reports that he typically gets foggy when he gets UTIs, and was acting that way for the past few days Patient is showing symptoms of mild dehydration Placed on IV fluids Valproic acid level 33 Continue carbamazepine, clonazepam, divalproex and baclofen CT head with no acute findings, there is unchanged positioning of the right posterior approach shunt catheter terminating within the anterior corpus callosum. Encephalomalacia within the right parietal, occipital and temporal lobes without hemorrhage Diabetes mellitus- Hold metformin placed on Accu-Cheks with NovoLog SSI COPD- Continue Cary Huynh PG Care Time/CCT Total # of Minutes Spent Total Time Spent with Patient: Total time spent is greater than 50% in coordination of care (as documented) at patient's floor/unit and/or counseling patient: Coding [place] [address] INT INP/OBS CARE 3/75MIN Patient Type Established Medical Decision Making High Complexity Diagnoses Complicated urinary tract infection N39.0 Altered mental status R41.82 Seizure disorder G40.909 BPH (benign prostatic hyperplasia) N40.0 Hypertension I10 Tobacco use disorder F17.200
[2023-12-04] MEDS ORDERED: GLUCAGON FOR INJ 1 MG VIAL SQ PRN (21:04)
[2023-12-04] MEDS ORDERED: GLUCOSE 10 TAB/TUBE PO PRN (21:04)
[2023-12-04] MEDS ORDERED: GLUCOSE 40% GEL 15 GM TUBE PO PRN (21:04)
[2023-12-04] MEDS ORDERED: CARBOHYDRATES FOR HYPOGLYCEMIA PO PRN (21:04)
[2023-12-04] MEDS ORDERED: DEXTROSE 50% 50 ML SYRINGE IV PRN (21:04)
[2023-12-04] MEDS ORDERED: TOBRAMYCIN CONSULT ACTIVE PRN (21:15)
[2023-12-04] MEDS ORDERED: GENTAMICIN CONSULT ACTIVE PRN (21:32)
[2023-12-04] MEDS: DEXTROSE 5% IV SCH (21:33)
[2023-12-04] MEDS: TOBRAMYCIN SULFATE IV SCH (21:33)
[2023-12-04] MEDS: carBAMazepine 200 MG TABLET PO ONE (21:34)
[2023-12-04] MEDS: DIVALPROEX DELAY RELEASE 500 MG TAB PO ONE (21:34)
[2023-12-04] MEDS: MAGNESIUM SULFATE / D5W 1 GM/100 ML BAG IV SCH (22:01)
--- NOTE | 2023-12-04 22:18 | CT Scan Report ---
Exam(s): CT ABDOMEN + PELVIS With Contrast IV Amt: 91 ml opti 320 EXAM: CT Abdomen and Pelvis With Intravenous Contrast CLINICAL HISTORY: Reason for exam: recurrent UTI, confusion, weakness. TECHNIQUE: Axial computed tomography images of the abdomen and pelvis with intravenous contrast. CTDI is 39.02 mGy and DLP is 2193.3 mGy-cm. Automated exposure control was utilized for the study. A dose lowering technique was utilized adhering to the principles of ALARA. CONTRAST: Patient received 91 ml opti 320 of IV contrast COMPARISON: 11/06/2023 FINDINGS: Pleural space: Trace left pleural effusion. ABDOMEN: Liver: Unremarkable. Gallbladder and bile ducts: Unremarkable. Pancreas: Unremarkable. Spleen: Unremarkable. Adrenals: Unremarkable. Kidneys and ureters: Normal enhancement of the kidneys. No pyelonephritis. Cortical cysts on the left kidney. Nonobstructing 3 mm stone in the left renal lower pole. Stomach and bowel: Unremarkable. PELVIS: Appendix: No findings to suggest acute appendicitis. Bladder: Mucosal thickening in the bladder consistent with cystitis. Reproductive: Unremarkable as visualized. ABDOMEN and PELVIS: Intraperitoneal space: Unremarkable. No free air. No significant fluid collection. Bones/joints: No acute fracture. Soft tissues: Unremarkable. Vasculature: Unremarkable. Lymph nodes: Unremarkable. IMPRESSION: 1. Mucosal thickening in the bladder consistent with cystitis. 2. Trace left pleural effusion. Electronically signed by: Matthew Arana MD 12/04/23 22:18 PM
--- NOTE | 2023-12-04 22:22 | CT Scan Report ---
Exam(s): CT HEAD Without Contrast EXAM: CT Head Without Intravenous Contrast CLINICAL HISTORY: Reason for exam: head, confusion. TECHNIQUE: Axial computed tomography images of the head/brain without intravenous contrast. CTDI is 39.02 mGy and DLP is 2193.3 mGy-cm. Automated exposure control was utilized for the study. A dose lowering technique was utilized adhering to the principles of ALARA. COMPARISON: 11/12/2023 FINDINGS: Brain: Encephalomalacia within the right parietal, occipital, and temporal lobes. No intracranial hemorrhage. No edema or mass-effect. Ventricles: Unchanged positioning of the right posterior approach shunt catheter terminating within the anterior corpus callosum. Bones/joints: Unremarkable. No fracture. Soft tissues: Unremarkable. Sinuses: No acute sinusitis. Mastoid air cells: Unremarkable as visualized. IMPRESSION: No acute intracranial abnormality. Electronically signed by: Matthew Arana MD 12/04/23 22:21 PM
[2023-12-04] MEDS: INSULIN ASPART PER UNIT CHARGE SC STA (23:24)
[2023-12-04] MEDS: INSULIN ASPART PER UNIT CHARGE SC SCH (23:26)
[2023-12-05] MEDS: GENTAMICIN SULFATE 550 MG in DEXTROSE 5% 100 ML IV STA (00:21)
[2023-12-05] MEDS: LACTATED RINGER'S 1,000 ML IV SCH (00:47)
[2023-12-05] MEDS: MELATONIN 3 MG TAB PO SCH (01:06)
[2023-12-05] MEDS: ATORVASTATIN 20 MG TAB PO SCH (01:06)
[2023-12-05] MEDS: OXYBUTYNIN CHLORIDE XL 5 MG TABCR PO SCH (01:06)
[2023-12-05] MEDS: BACLOFEN 10 MG TAB PO SCH (01:06)
[2023-12-05] MEDS: CEFEPIME 2,000 MG in SYRINGE 0 ML IV SCH (04:50)
[2023-12-05 05:05] LABS: Basophils # (auto) 0.02 K/uL (0.00-0.20); Basophils % (auto) 0.2 %; Eosinophils # (auto) 0.23 K/uL (0.00-0.50); Eosinophils % (auto) 2.5 %; Hematocrit (blood only) 37.6 % (42.0-52.0); Hemoglobin 12.2 g/dl (14.0-18.0); Immature Granulocytes # (auto) 0.04 K/uL (0.01-0.20); Immature Granulocytes % (auto) 0.4 %; Lymphocytes # (auto) 3.52 K/uL (1.20-3.40); Lymphocytes % (auto) 38.6 %; Mean Corpuscular Hemoglobin 28.6 pg (25.0-34.0); Mean Corpuscular Hgb Conc 32.4 g/dL (32.0-36.0); Mean Corpuscular Volume 88.1 fL (80.0-100.0); Mean Platelet Volume 9.8 fL (9.4-12.4); Monocytes # (auto) 0.68 K/uL (0.11-0.59); Monocytes % (auto) 7.5 %; Neutrophils # (auto) 4.63 K/uL (1.40-6.50); Neutrophils % (auto) 50.8 %; Platelet Count 306 K/uL (130-400); RDW Coefficient of Variation 13.7 % (11.5-14.5); RDW Standard Deviation 44.1 fL (36.4-46.3); Red Blood Count 4.27 M/uL (4.70-6.10); White Blood Count 9.12 K/ul (4.8-10.8)
[2023-12-05 05:22] LABS: Albumin Level 3.4 gm/dl (3.4-5.0); BUN Creatinine Ratio 24.4 (10-20); Bilirubin,Total 0.2 mg/dl (0.2-1.0); Calcium 8.5 mg/dl (8.6-10.3); Creatinine Clr Calc Pharmacy 209.2 ml/min; Est GFR (African American) 148.1 ml/min; Est GFR (Non-African American) 127.8 ml/min; Globulin 3.4 gm/dl (2.5-4.0); Magnesium 1.9 mg/dl (1.7-2.4); Potassium 4.1 mmol/L (3.5-5.1); Total Protein 6.8 gm/dl (6.0-8.3)
[2023-12-05 05:29] LABS: Prothrombin Time 10.4 Seconds (9.0-12.0)
[2023-12-05] MEDS: FLUTICASONE FUROATE 100MCG 14 PUFFS/INHALER INH SCH (07:52)
[2023-12-05] MEDS: UMECLIDINIUM/VILANTEROL 62.5/25MCG 7 PUFFS/INHALER INH SCH (07:52)
[2023-12-05] MEDS: carBAMazepine XR 200 MG TABCR PO SCH (07:53)
[2023-12-05] MEDS: VIBEGRON 75 MG TAB PO SCH (07:53)
[2023-12-05] MEDS: lisinopril 2.5 MG TAB PO SCH (07:53)
[2023-12-05] MEDS: ENOXAPARIN INJ 40 MG/0.4 ML SYR SQ SCH (07:53)
[2023-12-05] MEDS: DIVALPROEX DELAY RELEASE 500 MG TAB PO SCH (07:54)
--- NOTE | 2023-12-05 08:33 | Hospitalist Progress Note ---
Date of Service December 05, 2023 Assessment & Plan Admission and Anticipated Discharge Date Admission Date: December 04, 2023 Subjective Today morning, patient mental status seems fine. He was consistent in giving history as per his previous documentation. He was lying on bed on propped up. Otherwise feeling ok, just wanted to get rid of his UTI soon. No fever, chills, SOB, Orthopnea, dizziness, syncope, abdomen/flank pain, Results & Data Results & Data Vital Signs (Past 12 Hours) Vital Signs Temp Pulse Pulse Resp BP Pulse Ox O2 Del Method 12/05/23 08:00 37.1 C 72 16 114/69 91 Room Air 12/05/23 04:02 36.5 C 72 16 115/58 L 93 Room Air 12/05/23 00:15 63 12/04/23 23:50 36.6 C 64 16 121/68 94 Room Air 12/04/23 23:00 65 16 98 Room Air 12/04/23 22:50 75 12/04/23 21:00 73 18 91/75 L 93 Room Air
[2023-12-05] MEDS: INSULIN ASPART PER UNIT CHARGE SC SCH (08:51)
--- NOTE | 2023-12-05 08:54 | Electrocardiogram Report ---
Test Reason : Blood Pressure : */* mmHG Vent. Rate : 71 BPM Atrial Rate : 71 BPM P-R Int : 160 ms QRS Dur : 84 ms QT Int : 400 ms P-R-T Axes : * -18 20 degrees QTcB Int : 434 ms Normal sinus rhythm with sinus arrhythmia Normal ECG When compared with ECG of 06-Nov-2023 15:33, No significant change was found Confirmed by Mahamed Watson ([id number]) on 12/05/2023 8:54:05 AM Referred By: REFERRED SELF Confirmed By: Mahamed Watson
[2023-12-05] MEDS ORDERED: NON-FORMULARY MEDICATION (Fluticasone-Umeclidin-Vilanter [Trelegy Ellipta] 100-62.5-25 mcg INH SCH (09:00)
--- NOTE | 2023-12-05 12:01 | Discharge Summary ---
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 Patient remained stable in the ED. Labs were significant for a leukocytosis of 10 with mild neutrophil predominance of 6.8, UA with cloudy appearance, 2+ pr otein, nitrite positive, trace leukocyte esterase, greater than 50 WBC, greater than 20 RBC, 3-5 hyaline cast, and 3+ bacteria, with full respiratory BioFire negative. Chest x-ray was read as negative for acute findings. Prior to admission the patient was given 1 L normal saline, 1 g IV acetaminophen, and a dose of cefepime. Patient was lying in bed no acute distress at the time of exam with his sister/POA at bedside, history is obtained from both. History explained to the patient started to have foul-smelling urine yesterday along with a headache and mild confusion consistent with previous UTIs. They deny recent fevers, patient confirms that he has been taking his home medications as prescribed. Denies recent chest pain, shortness of breath, abdominal pain, nausea/vomiting, hematuria, diarrhea, and recent trauma. Patient's sister states that he follows with urology and has had a long history of urinary retention resistant to previous oral medications. Patient had a Bailey catheter previously but does not prefer to have 1 in which is why it was removed prior to last discharge. They confirm the patient is a full code and his sister is his power of employee benefits attorney. Please refer to Dr. Negrete's attestation for any changes to treatment plan Admission Exam Per Admitting Provider General: In no acute distress, stated age, well-nourished, non-toxic appearing HEENT: Normocephalic, atraumatic, no scleral icterus, pupils around round, symmetrical, and reactive to light, dry mucus membranes, trachea midline, no thyromegaly Chest/Pulm: No respiratory distress, symmetrical chest expansion, decreased breath sounds in the LLE otherwise CTA Cardiac: RRR, no murmurs noted Abdomen: Negative for ascites and bruising, normoactive bowel sounds, soft, non- tender to palpation throughout Musculoskeletal: Baseline left-sided hemiparesis noted, no acute trauma Extremities: Radial, dorsalis pedis, and posterior tibial pulses are intact and symmetrical, no edema noted in the BL LE's Skin: Warm, dry, no rashes , lesions, or scars noted Neuro: Alert and oriented to person, place, month, year, no focal defects, baseline left-sided hemiparesis noted, no acute neurologic changes compared to baseline no tremors noted Psych: No acute distress, calm and cooperative during the exam Principal Diagnosis Urinary Tract Infection with JESSICA with ambulatory dysfunction Discharge Data Allergies Allergy/AdvReac Type Severity Reaction Status Date / Time aspirin AdvReac Mild Anxiety Verified 12/04/23 19:55 [From Excedrin Extra Strength] caffeine AdvReac Mild Anxiety Verified 12/04/23 19:55 [From Excedrin Extra Strength] Consultations 12/04/23 21:09 ED Decision to Admit Stat Ordered Studies 12/04/23 19:29 CT abd pelvis IV con only Stat CT head/brain wo con Stat Discharge Plan Discharge Items Reason For Visit: AMS, UTI, DEHYDRATION Follow-up/Referrals: Radha Martin MD [Primary Care Provider] - Medications and DC Order Prescriptions: No Action clonazepam [Klonopin] 1 mg tablet 1 mg PO HS PRN (Reason: Sleep) divalproex [Depakote] 500 mg tablet,delayed release (DR/EC) 500 mg PO BID carbamazepine [Tegretol XR] 200 mg tablet extended release 12 hr 200 mg PO BID baclofen 10 mg tablet 10 mg PO TID atorvastatin 20 mg tablet 20 mg PO QPM acetaminophen 500 mg Capsule 1,000 mg PO Q6H PRN (Reason: Pain) metformin 500 mg tablet 500 mg PO BID miconazole nitrate [Zeasorb AF] 2 % powder 1 applic TOPICAL BID PRN (Reason: Other) melatonin 3 mg tablet 6 mg PO HS magnesium oxide 400 mg (241.3 mg magnesium) tablet 400 mg PO QAM Trelegy Ellipta 100-62.5-25 mcg blister with device 1 inh INHALATION DAILY oxybutynin chloride 15 mg tablet extended release 24hr 15 mg PO PM mirabegron [Myrbetriq] 50 mg tablet extended release 24 hr 50 mg PO QAM lisinopril 2.5 mg tablet 2.5 mg PO DAILY Admission Data Admit Date/Time: 12/04/23 21:03 Attending Provider: Zaira Zhou Admit Provider: Baldev Negrete Primary Care Provider: Radha Martin Other Providers: Baldev Negrete
--- NOTE | 2023-12-05 13:26 | Hospitalist Progress Note ---
Date of Service December 05, 2023 Assessment & Plan (1) Complicated urinary tract infection: (2) Neurogenic bladder: (3) Altered mental status: (4) Diabetes mellitus, type 2: (5) RAILROAD WHEELS AND AXLE INSPECTOR (ventriculoperitoneal) shunt status: (6) Seizure disorder: (7) Left hemiparesis: (8) Hypertension: Plan Jeffrey is a 62M w/ PMH of RAILROAD WHEELS AND AXLE INSPECTOR shunt, multiple pulm nodules, sacral wounds, urinary retention, neurogenic bladder, GERD, tobacco use, seizure disorder and hypertension and Type 2 Diabetes who presented for AMS in the setting of complicated UTI. He endorsed some discomfort with his catheter, wants to get rid of the sandra and the UTI too. He does not have SOB, chest pain, fever, dyspnea, pain abdomen, flank pain, Nausea,Vomiting, Recent Trauma. 1.Complicated Recurrent UTI Risk for complication: 3 episodes in last 2 month, Male, Bailey's use, hemiparesis, Diabetes 09/15/23: Admitted in [facility] for UTI with LLL PNE with Hypoxic Respiratory failure; treated with Meropenam. Discharged to [facility]; another episode of UTI dx on F/U with PCP; treated in ER. Urine CS: Pseudomonas sensitive to Tazopip: Meropenam to Tazo in 2nd UTI. Presented with UTI this visit Urine routine: Bacteria 3+, Glucose 3+, WBC.50, RBC >20, Nitrite +ve, Yeast +ve BioFire: -ve/ Nasal MRSA -ve Prelim Urine CS: Gram -ve Bacillus; Final CS: awaiting Hemodynamically stable; not in Sepsis Started Abx on basis of previous CS pattern: Inj Cefepime 2gm TID Will readjust as per final CS report AMS improved today; Clinically not in Sepsis CTAP: No e/o pyelonephritis; cystitis +, no e/o nephrolothiasis 2. Altered mental status Patient's sister reports he gets "foggy" when he gets UTIs Currently completely alert and oriented, sister denies new focal defects Likely due to current UTI and mild dehydration CT of the head and brain without contrast : No new changes. 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 BPH (benign prostatic hyperplasia): Condom cath ongoing, urinating w/o abnormality Could consider restarting Tamsulosin prior to dc Known hx of incontinence/neurogenic bladder Clinical picture likely compounded by BPH on neurogenic bladder on incontinence 5 Hypertension: Currently stable continue lisinopril 6.Tobacco use disorder: Patient quit smoking approximately 2 months ago 7. DM type II Last HBA1C 03/08: 6.6 Metformin 500 BID at home; Insulin Aspart now; received 5 U total since admission. DM seems uncontrolled now; needs medicine readjustment during discharge. Diet: Heart Healthy DVT Ppx: Lovenox IVF: None Dispo: Pending ongoing clinical improvement Admission and Anticipated Discharge Date Admission Date: December 04, 2023 Supervising Physician Co-Signing Physician Notes Attending Physician Supervision Note: I independently interviewed and examined the patient and verified the blanc history and physical, reviewed labs and image studies and agree with findings and care plan noted above. UTI with metabolic encephalopathy - h/o pseudomonas UTI with multiple resistance. Urine cx - G-B. -s/p IVF resuscitation. Continue Cefepime 2 g IV every 12 hours Metabolic encephalopathy - CT head - No acute finding. Unchanged shunt position. Encephalomalacia. -sec to UTI. Resolved. Seizure ds - -Valproic acid level 33. No concern of seizure. Will notify his neurologist in am for any dose change recommendation. -Continue carbamazepine, divalproex Diabetes mellitus- Hold metformin placed on Accu-Cheks with NovoLog SSI COPD- Continue Trelegy Ellipta Neurogenic bladder -Continue mirabegron and oxybutynin -Continue condom catheter for urinary incontinence. Left hemiparesis/Rigidity/Spasticity -Clonazepam and flexeril HTN - On lisinopril 2.5 mgs. Enoxaparin. Subjective Today morning Jeffrey is overall stable. His mental status seems fine, was consistent with history as compared to last documentation. Well oriented and cooperative. He endorsed some discomfort with his catheter, wants to get rid of the sandra and the UTI too. He does not have SOB, chest pain, fever, dyspnea, pain abdomen, flank pain. Review of Systems Review of Systems: As per HPI Physical Exam Physical Exam: Gen: NAD, alert, interactive HEENT: Supple, no LAD, no thyromegaly, no JVD Resp:Non-labored, no wheezing/rhonchi/rales, CTAB CV:RRR, normal S1/S2, no M/R/G Abd: Soft, non-distended, no TTP, normoactive bowels, no masses Extr: 2+ dp bilaterally, no edema Results & Data Results & Data Vital Signs (Past 12 Hours) Vital Signs Temp Pulse Pulse Resp BP Pulse Ox O2 Del Method 12/05/23 11:51 37.1 C 67 16 126/79 96 Room Air 12/05/23 08:00 37.1 C 72 16 114/69 91 Room Air 12/05/23 04:02 36.5 C 72 16 115/58 L 93 Room Air 12/05/23 00:15 63 Resident Activity Tracking Resident Involvement: Resident Care Provided Care Provided: Adult Hospital Medicine
[2023-12-05] MEDS: clonazePAM 1 MG TAB PO PRN (20:14)
[2023-12-05] MEDS: POLYETHYLENE (MIRALAX) 17 GM PACK PO PRN (20:14)
[2023-12-05] MEDS ORDERED: GENTAMICIN SULFATE 550 MG in DEXTROSE 5% 100 ML IV SCH (22:00)
--- NOTE | 2023-12-06 06:49 | Hospitalist Progress Note ---
Date of Service December 06, 2023 Assessment & Plan (1) Complicated urinary tract infection: (2) Neurogenic bladder: (3) Altered mental status: (4) Diabetes mellitus, type 2: (5) DIRECTOR CASE MANAGEMENT (ventriculoperitoneal) shunt status: (6) Seizure disorder: (7) Left hemiparesis: (8) Hypertension: Plan Jeffrey is a 62M w/ PMH of DIRECTOR CASE MANAGEMENT shunt, multiple pulm nodules, sacral wounds, urinary retention, neurogenic bladder, GERD, tobacco use, seizure disorder and hypertension and Type 2 Diabetes who presented for AMS in the setting of complicated UTI. 1.Complicated Recurrent UTI Risk for complication: 3 episodes in last 2 month, Male, Bailey's use, hemiparesis, Diabetes 09/15/23: Admitted in [facility] for UTI with LLL PNE with Hypoxic Respiratory failure; treated with Meropenam. Discharged to [facility]; another episode of UTI dx on F/U with PCP; treated in ER. Urine CS: Pseudomonas sensitive to Tazopip: Meropenam to Tazo in 2nd UTI. Presented with UTI this visit Urine routine: Bacteria 3+, Glucose 3+, WBC.50, RBC >20, Nitrite +ve, Yeast +ve BioFire: -ve/ Nasal MRSA -ve Prelim Urine CS: Gram -ve Bacillus; Final CS: awaiting Hemodynamically stable; not in Sepsis Started Abx on basis of previous CS pattern: Inj Cefepime 2gm TID Will readjust as per final CS report AMS improved today; Clinically not in Sepsis CTAP: No e/o pyelonephritis; cystitis +, no e/o nephrolothiasis 2. Altered mental status Currently completely alert and oriented. Likely due to current UTI and mild dehydration CT of the head and brain without contrast : No new changes. 3.Seizure disorder( S/P DIRECTOR CASE MANAGEMENT shunt for traumatic brain injury) Stable on Depakote and carbamazepine Valporate level : 33( No recent seizure) Fall prevention ordered 4. BPH (benign prostatic hyperplasia): Condom cath ongoing, urinating w/o abnormality Could consider restarting Tamsulosin prior to dc Known hx of incontinence/neurogenic bladder Clinical picture likely compounded by BPH on neurogenic bladder on incontinence 5 Hypertension: Currently stable continue lisinopril 2.5 mg daily BP today: 93-127/ 47-58 6.Tobacco use disorder: Patient quit smoking approximately 2 months ago 7. DM type II Last HBA1C: 7.4 Metformin 500 BID at home; Insulin Aspart now DM seems uncontrolled now; needs medicine readjustment during discharge. Diet: Heart Healthy DVT Ppx: Lovenox IVF: None Dispo: Pending ongoing clinical improvement Admission and Anticipated Discharge Date Admission Date: December 04, 2023 Supervising Physician Co-Signing Physician Notes Attending Physician Supervision Note: I independently interviewed and examined the patient and verified the blanc history and physical, reviewed labs and image studies and agree with findings and care plan noted above. UTI with metabolic encephalopathy - h/o pseudomonas UTI with multiple resistance. Urine cx - G-B. -s/p IVF resuscitation. Continue Cefepime 2 g IV every 12 hours Metabolic encephalopathy - CT head - No acute finding. Unchanged shunt position. Encephalomalacia. -sec to UTI. Resolved. Seizure ds - -Valproic acid level 33. No concern of seizure. Will notify his neurologist in am for any dose change recommendation. -Continue carbamazepine, divalproex Diabetes mellitus- Hold metformin placed on Accu-Cheks with NovoLog SSI COPD- Continue Trelegy Ellipta Neurogenic bladder -Continue mirabegron and oxybutynin -Continue condom catheter for urinary incontinence. Left hemiparesis/Rigidity/Spasticity -Clonazepam and flexeril HTN - On lisinopril 2.5 mgs. Enoxaparin. Subjective Today morning Jeffrey is overall stable. His mental status seems fine, was consistent with history as compared to last documentation. Well oriented and cooperative. No SOB, chest pain, feels better than yesterday Review of Systems Review of Systems: As per HPI Physical Exam Physical Exam: Gen: NAD, alert, interactive HEENT: Supple, no LAD, no thyromegaly, no JVD Resp:BL decreased air entry with wheezes and rales CV:RRR, normal S1/S2, no M/R/G Abd: Soft, non-distended, no TTP, normoactive bowels, no masses Extr:BL LL edema pitting +nt Results & Data Results & Data Vital Signs (Past 12 Hours) Vital Signs Temp Pulse Pulse Resp BP Pulse Ox O2 Del Method 12/06/23 03:51 37 C 62 16 99/50 L 93 Room Air 12/05/23 23:11 37.2 C 67 18 117/64 92 Room Air 12/05/23 22:46 Room Air 12/05/23 22:02 58 L 12/05/23 20:08 36.7 C 73 18 115/72 93 Room Air 12/05/23 19:33 36.9 C 67 16 93/49 L 92 Room Air Resident Activity Tracking Resident Involvement: Resident Care Provided Care Provided: Adult Hospital Medicine
[2023-12-06 07:52] LABS: Basophils # (auto) 0.04 K/uL (0.00-0.20); Basophils % (auto) 0.5 %; Eosinophils # (auto) 0.27 K/uL (0.00-0.50); Eosinophils % (auto) 3.3 %; Hematocrit (blood only) 38.4 % (42.0-52.0); Hemoglobin 12.3 g/dl (14.0-18.0); Immature Granulocytes # (auto) 0.03 K/uL (0.01-0.20); Immature Granulocytes % (auto) 0.4 %; Lymphocytes # (auto) 2.55 K/uL (1.20-3.40); Lymphocytes % (auto) 30.8 %; Mean Corpuscular Hemoglobin 28.5 pg (25.0-34.0); Mean Corpuscular Volume 88.9 fL (80.0-100.0); Mean Platelet Volume 9.5 fL (9.4-12.4); Monocytes # (auto) 0.59 K/uL (0.11-0.59); Monocytes % (auto) 7.1 %; Neutrophils % (auto) 57.9 %; Platelet Count 301 K/uL (130-400); RDW Coefficient of Variation 13.8 % (11.5-14.5); RDW Standard Deviation 44.9 fL (36.4-46.3); Red Blood Count 4.32 M/uL (4.70-6.10); White Blood Count 8.28 K/ul (4.8-10.8)
[2023-12-06 08:37] LABS: Albumin Globulin Ratio 0.9 (0.9-2); Albumin Level 3.5 gm/dl (3.4-5.0); Bilirubin,Total 0.2 mg/dl (0.2-1.0); Calcium 8.8 mg/dl (8.6-10.3); Creatinine Clr Calc Pharmacy 171.5 ml/min; Est GFR (African American) 136.5 ml/min; Est GFR (Non-African American) 117.8 ml/min; Globulin 3.9 gm/dl (2.5-4.0); Potassium 4.4 mmol/L (3.5-5.1); Total Protein 7.4 gm/dl (6.0-8.3)
[2023-12-06 08:39] LABS: Estimated Average Glucose 166 mg/dl; Hemoglobin A1C 7.4 % (4.5-5.6)
[2023-12-06] MEDS: guaiFENesin 600 MG TABCR PO SCH (19:49)
--- NOTE | 2023-12-07 07:57 | Hospitalist Progress Note ---
Date of Service December 07, 2023 Assessment & Plan (1) Complicated urinary tract infection: (2) Neurogenic bladder: (3) Altered mental status: (4) Diabetes mellitus, type 2: (5) GREEN PLUMBER (ventriculoperitoneal) shunt status: (6) Seizure disorder: (7) Left hemiparesis: (8) Hypertension: Plan Jeffrey is a 62M w/ PMH of GREEN PLUMBER shunt, multiple pulm nodules, sacral wounds, urinary retention, neurogenic bladder, GERD, tobacco use, seizure disorder and hypertension and Type 2 Diabetes who presented for AMS in the setting of complicated UTI. 1.Complicated Recurrent UTI with ESBL Klebsiella Clinical and lab [place] UTI; no sepsis Urine CS: ESBL Klebsiella oxytoca S to Bactrim R to Cefepime Cefepime changed to Bactrim today. 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 Altered mental status Improved to baseline CT of the head and brain without contrast : No new changes. 3.Seizure disorder( S/P GREEN PLUMBER shunt for traumatic brain injury) Stable on Depakote and carbamazepine Valporate level : 33( No recent seizure) Fall prevention ordered Neurology comfortable with this dosing now If new seizure; Depakote 500 stat and 1000 OD Regular F/U with his neurologist. 4. BPH (benign prostatic hyperplasia): Condom cath ongoing, urinating w/o abnormality Could consider restarting Tamsulosin prior to dc Known hx of incontinence/neurogenic bladder Clinical picture likely compounded by BPH on neurogenic bladder on incontinence Urology consult ordered today 5 Hypertension: Currently stable continue lisinopril 2.5 mg daily 6.Tobacco use disorder: Patient quit smoking approximately 2 months ago 7. DM type II Last HBA1C: 7.4 Metformin 500 BID at home; Insulin Aspart now DM seems uncontrolled now; needs medicine readjustment during discharge. Diet: Heart Healthy DVT Ppx: Lovenox IVF: None Dispo: Pending ongoing clinical improvement Admission and Anticipated Discharge Date Admission Date: December 04, 2023 Supervising Physician Co-Signing Physician Notes Attending Physician Supervision Note: I independently interviewed and examined the patient and verified the blanc history and physical, reviewed labs and image studies and agree with findings and care plan noted above. UTI with metabolic encephalopathy - hx of ESBL/pseudomonas. -Urine cx - Klebsiella Oxytoca ESBL. Sensitive to Bactrim - started. -Urology consulted per family request of having recurrent UTI in setting of neurogenic bladder and BPH. Metabolic encephalopathy - CT head - No acute finding. Unchanged shunt position. Encephalomalacia. -sec to UTI. Resolved. Seizure ds - -Valproic acid level 33. No concern of seizure. -Continue carbamazepine, divalproex Diabetes mellitus- Holding metformin placed on Accu-Cheks with NovoLog SSI COPD- Continue Trelegy Ellipta Neurogenic bladder -Continue mirabegron and oxybutynin -Continue condom catheter for urinary incontinence. Left hemiparesis/Rigidity/Spasticity -Clonazepam and flexeril HTN - On lisinopril 2.5 mgs. Enoxaparin. Needs rehab placement. Subjective Today morning Jeffrey is overall stable. He says he feels better than when he was here. His heygine does not seem great. Maunie some discomfort on his back; seems has some food crumbs laying on his bed. Nurse was there to help. No SOB, chest pain, feels better than yesterday Review of Systems Review of Systems: As per HPI Physical Exam Physical Exam: Gen: NAD, alert, interactive HEENT: Supple, no LAD, no thyromegaly, no JVD Resp:BL decreased air entry with wheezes and rales CV:RRR, normal S1/S2, no M/R/G Abd: Soft, non-distended, no TTP, normoactive bowels, no masses Extr:BL LL edema pitting +nt MSK: Hemiparesis of left UL/LL Results & Data Results & Data Vital Signs (Past 12 Hours) Vital Signs Temp Pulse Pulse Resp BP Pulse Ox O2 Del Method 12/07/23 07:50 36.6 C 81 20 125/56 L 92 Room Air 12/07/23 07:20 63 12/07/23 03:27 36.4 C L 66 17 119/77 92 Room Air 12/06/23 23:27 62 12/06/23 22:57 36.5 C 64 16 101/62 94 Room Air 12/06/23 21:02 Room Air Resident Activity Tracking Resident Involvement: Resident Care Provided Care Provided: Adult Hospital Medicine
[2023-12-07 09:38] LABS: Basophils # (auto) 0.03 K/uL (0.00-0.20); Basophils % (auto) 0.3 %; Eosinophils # (auto) 0.27 K/uL (0.00-0.50); Eosinophils % (auto) 2.9 %; Hematocrit (blood only) 38.3 % (42.0-52.0); Hemoglobin 12.9 g/dl (14.0-18.0); Immature Granulocytes # (auto) 0.03 K/uL (0.01-0.20); Immature Granulocytes % (auto) 0.3 %; Lymphocytes # (auto) 2.61 K/uL (1.20-3.40); Lymphocytes % (auto) 27.7 %; Mean Corpuscular Hgb Conc 33.7 g/dL (32.0-36.0); Mean Corpuscular Volume 86.1 fL (80.0-100.0); Mean Platelet Volume 9.6 fL (9.4-12.4); Monocytes % (auto) 6.4 %; Neutrophils # (auto) 5.89 K/uL (1.40-6.50); Neutrophils % (auto) 62.4 %; Platelet Count 318 K/uL (130-400); RDW Coefficient of Variation 13.7 % (11.5-14.5); RDW Standard Deviation 42.7 fL (36.4-46.3); Red Blood Count 4.45 M/uL (4.70-6.10); White Blood Count 9.43 K/ul (4.8-10.8)
[2023-12-07 09:59] LABS: Albumin Globulin Ratio 0.9 (0.9-2); Albumin Level 3.7 gm/dl (3.4-5.0); BUN Creatinine Ratio 30.4 (10-20); Bilirubin,Total 0.3 mg/dl (0.2-1.0); Calcium 8.9 mg/dl (8.6-10.3); Creatinine Clr Calc Pharmacy 186.3 ml/min; Est GFR (African American) 141.3 ml/min; Est GFR (Non-African American) 121.9 ml/min; Globulin 4.1 gm/dl (2.5-4.0); Potassium 3.9 mmol/L (3.5-5.1); Total Protein 7.8 gm/dl (6.0-8.3)
[2023-12-07] MEDS: SULFAMETHOXAZOLE/TRIMETHOPRIM DS 800/160MG TAB PO SCH (10:22)
--- NOTE | 2023-12-07 13:36 | Urology Consultation ---
Date of Consultation December 07, 2023 Assessment & Plan (1) Complicated urinary tract infection: (2) Neurogenic bladder: Plan 62 yo/M with a history of neurogenic bladder admitted with complicated UTI. Urology consulted for recurrent UTI and recommendations on prophylactic anti biotics. He is afebrile with stable vitals Labs today show no leukocytosis, hemoglobin 12.9, creatinine 0.46 Urine culture grew Klebsiella ESBL. Blood culture prelim no growth x 48 hours. Cefepime changed to Bactrim today. External condom catheter in place w/ yellow urine in bag. CT A/P reviewedbladder wall thickening consistent with cystitis, nonobstructing 3 mm stone in the left kidney. We discussed recurrent UTIs. Discussed supplements that could be taken such as cranberry supplements or d-mannose. Discussed methenamine as a preventative option. Also discussed prophylactic antibiotics. Discussed that we typically choose an antibiotic based off of prior culture sensitivities/data. Also discussed risk of antibiotic resistance. Also discussed possible further workup with cystoscopy. No acute intervention warranted. Can check bladder scan/PVR to ensure he is emptying. Continue antibiotics for treatment of UTI. Can consider addition of methenamine for UTI prevention after completing course of antibiotics for current infection. This can also be discussed further as an outpatient. Plan for outpatient follow-up with urology as scheduled. Urology will sign-off. Please call with any further questions, concerns, or changes in patient status. History of Present Illness Attending Physician: Zaira Zhou MD History of Present Illness 62-year-old male with a history of neurogenic bladder secondary to a traumatic brain injury and recurrent UTI who is admitted with complicated UTI. Urology has been consulted for neurogenic bladder, recurrent UTI, BPH. Patient is well-known to the urology service, has followed with Dr. Cunningham. Hx of neurogenic bladder. He has urodynamically proven uninhibited bladder contractions. He had previously been managed with a Bailey catheter due to urge incontinence but also had issues with recurrent UTI. He has previously trialed anticholinergics, beta 3 agonists and Botox. He is scheduled to see Dr. Armenta in the urology clinic on 12/25/2023 for discussion of sacral neuromodulation. He currently has a external condom catheter in place. Continues to have leakage and bladder spasms. He is on Gemtesa and oxybutynin. Recent Culture history 12/04/2023 Klebsiella ESBL 11/12/2023 yeast not Pattie 11/06/2023 Pseudomonas Allergies Allergy/AdvReac Type Severity Reaction Status Date / Time aspirin AdvReac Mild Anxiety Verified 12/04/23 19:55 [From Excedrin Extra Strength] caffeine AdvReac Mild Anxiety Verified 12/04/23 19:55 [From Excedrin Extra Strength] Home Medications Medication Instructions Recorded Confirmed Type baclofen 10 mg tablet 10 mg PO TID 01/02/18 12/04/23 History carbamazepine 200 mg 200 mg PO BID 01/02/18 12/04/23 History tablet,extended release,12 hr (Tegretol XR) clonazepam 1 mg tablet (Klonopin) 1 mg PO HS PRN Sleep 01/02/18 12/04/23 History divalproex 500 mg tablet,delayed 500 mg PO BID 01/02/18 12/04/23 History release (Depakote) atorvastatin 20 mg tablet 20 mg PO QPM 04/30/18 12/04/23 History acetaminophen 500 mg capsule 1,000 mg PO Q6H PRN Pain 01/12/20 12/04/23 History fluticasone fur. 100 mcg-umeclid 1 inh inhalation DAILY 11/06/23 12/04/23 History 62.5 mcg-vilant 25 mcg inhalat.powder (Trelegy Ellipta) magnesium oxide 400 mg (241.3 mg 400 mg PO QAM 11/06/23 12/04/23 History magnesium) tablet melatonin 3 mg tablet 6 mg PO HS 11/06/23 12/04/23 History metformin 500 mg tablet 500 mg PO BID 11/06/23 12/04/23 History miconazole nitrate 2 % topical 1 applic topical BID PRN Other 11/06/23 12/04/23 History powder (Zeasorb AF) mirabegron 50 mg tablet,extended 50 mg PO QAM 11/06/23 12/04/23 History release 24 hr (Myrbetriq) oxybutynin chloride 15 mg 15 mg PO PM 11/06/23 12/04/23 History tablet,extended release 24 hr lisinopril 2.5 mg tablet 2.5 mg PO DAILY 12/04/23 12/04/23 History Patient History Medical History (Updated 12/06/23 @ 00:07 by Kody Henley) Wheelchair bound Chronic back pain BPH (benign prostatic hyperplasia) Hematest positive stools reason for scheduled colonoscopy Diabetes mellitus, type 2 Temporomandibular joint disorder Hearing loss, right 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 History of head injury 1977 Urine incontinence Stool incontinence Surgical History (Updated 12/05/23 @ 04:33 by Fox Parker MD) History of brain shunt History of foot surgery left tendon release History of surgery on left wrist tendon release History of tooth extraction all teeth History of tonsillectomy History of bilateral cataract extraction Family History Sister Family history of diabetes mellitus Uncle Family history of diabetes mellitus Grandmother (Paternal) Family history of diabetes mellitus Other Diabetes Heart disease Hypertension No family history of adverse response to anesthesia Prostate cancer Social History Smoking Status: Never smoker Tobacco Type: Cigarettes Cigarettes Per Day: "heavy" 40 a day; Second Hand Exposure: No; Do You Dip or Chew Tobacco: No; Hx Alcohol Use: No Hx Substance Use: No Preferred Language: German Communication Ability: Effective Communication Ability Comment: signs own consents Revolving Inventory Clerk Required: No Beliefs That Will Affect Care: None Current Living Situation: Family Current Living Situation Comment: caregiver there several hours a day current occupational status: disabled Other Information That Helps Us Care for You: No Feels Safe at Home: Yes Safety Concerns: Feels Safe At This Time Assistive Devices: Hospital Bed, Lift Chair and Wheelchair Review of Systems Review of Systems: All systems reviewed & are unremarkable except as noted in HPI & below Physical Exam Constitutional: no acute distress Respiratory: no respiratory distress and no labored breathing Skin: Warm and dry Neurologic: awake Psychiatric: Orientation: alert and cooperative Genitourinary: External catheter Results & Data Vital Signs (Past 12 Hours) Vital Signs Temp Pulse Pulse Resp BP Pulse Ox O2 Del Method 12/07/23 11:44 37.0 C 60 18 118/68 94 Room Air 12/07/23 08:00 Room Air 12/07/23 07:50 36.6 C 81 20 125/56 L 92 Room Air 12/07/23 07:20 63 12/07/23 03:27 36.4 C L 66 17 119/77 92 Room Air PG Care Time/CCT Total # of Minutes Spent Total Time Spent with Patient: Total time spent is greater than 50% in coordination of care (as documented) at patient's floor/unit and/or counseling patient: Coding Level of Care Code 63756 IN/OBS CONSULT LVL 3,45M Diagnoses Complicated urinary tract infection N39.0 Neurogenic bladder N31.9
[2023-12-08 06:16] LABS: Hematocrit (blood only) 37.5 % (42.0-52.0); Hemoglobin 12.5 g/dl (14.0-18.0); Mean Corpuscular Hemoglobin 29.1 pg (25.0-34.0); Mean Corpuscular Hgb Conc 33.3 g/dL (32.0-36.0); Mean Corpuscular Volume 87.2 fL (80.0-100.0); Mean Platelet Volume 9.6 fL (9.4-12.4); Platelet Count 328 K/uL (130-400); RDW Coefficient of Variation 13.8 % (11.5-14.5); RDW Standard Deviation 43.2 fL (36.4-46.3); White Blood Count 9.43 K/ul (4.8-10.8)
[2023-12-08 06:46] LABS: Calcium 8.8 mg/dl (8.6-10.3); Est GFR (African American) 127.5 ml/min; Potassium 4.1 mmol/L (3.5-5.1)
--- NOTE | 2023-12-08 07:15 | Hospitalist Progress Note ---
Date of Service December 08, 2023 Assessment & Plan (1) Complicated urinary tract infection: (2) Neurogenic bladder: (3) Altered mental status: (4) Diabetes mellitus, type 2: (5) SENIOR DATA ARCHITECT (ventriculoperitoneal) shunt status: (6) Seizure disorder: (7) Left hemiparesis: (8) Hypertension: Plan Jeffrey is a 62M w/ PMH of SENIOR DATA ARCHITECT shunt, multiple pulm nodules, sacral wounds, urinary retention, neurogenic bladder, GERD, tobacco use, seizure disorder and hypertension and Type 2 Diabetes who presented for AMS in the setting of complicated UTI. 1.Complicated Recurrent UTI with ESBL Klebsiella Clinical and lab [place] UTI; no sepsis Urine CS: ESBL Klebsiella oxytoca S to Bactrim R to Cefepime Cefepime changed to Bactrim today. CTAP: No e/o pyelonephritis; cystitis +, no e/o nephrolothiasis Urology consult ordered: Continue same treatment Will F/U in Outpatient basis for deciding Prophylactic Abx 2. Altered mental status Improved to baseline CT of the head and brain without contrast : No new changes. 3.Seizure disorder( S/P SENIOR DATA ARCHITECT shunt for traumatic brain injury) Stable on Depakote and carbamazepine Valporate level : 33( No recent seizure) Fall prevention ordered Neurology comfortable with this dosing now If new seizure; Depakote 500 stat and 1000 OD Regular F/U with his neurologist. 4. BPH (benign prostatic hyperplasia): Condom cath ongoing, urinating w/o abnormality Could consider restarting Tamsulosin prior to dc Known hx of incontinence/neurogenic bladder Clinical picture likely compounded by BPH on neurogenic bladder on incontinence Urology consult ordered today 5 Hypertension: Currently stable continue lisinopril 2.5 mg daily 6.Tobacco use disorder: Patient quit smoking approximately 2 months ago 7. DM type II Last HBA1C: 7.4 Metformin 500 BID at home; Insulin Aspart now DM seems uncontrolled now; needs medicine readjustment during discharge. Ongoing physical / Occupational therapy Diet: Heart Healthy DVT Ppx: Lovenox IVF: None Admission and Anticipated Discharge Date Admission Date: December 04, 2023 Supervising Physician Co-Signing Physician Notes Attending Physician Supervision Note: I independently interviewed and examined the patient and verified the blanc history and physical, reviewed labs and image studies and agree with findings and care plan noted above. Feeling okay, just waiting on rehab. Telling jokes, smiling. Vitals noted, in general he is awake and alert pleasant no distress. HEENT normocephalic atraumatic mucous membranes moist. Breathing unlabored no accessory muscle use good effort. Skin without rashes pallor or icterus. Neuro without anything that appears to be acute focal deficitssignificant chronic appearing changes. UTI with metabolic encephalopathy - hx of ESBL/pseudomonas. -Urine cx - Klebsiella Oxytoca ESBL. Sensitive to Bactrim - finish out course of antibiotics with Bactrim -Urology Input appreciated Metabolic encephalopathy - CT head - No acute finding. Unchanged shunt position. Encephalomalacia. -sec to UTI. Resolved. Seizure ds - -Valproic acid level 33. No concern of seizure. -Continue carbamazepine, divalproex Diabetes mellitus- Holding metformin placed on Accu-Cheks with NovoLog SSI COPD- Continue Trelegy Ellipta Neurogenic bladder -Continue mirabegron and oxybutynin -Continue condom catheter for urinary incontinence. Left hemiparesis/Rigidity/Spasticity -Clonazepam and flexeril HTN - On lisinopril 2.5 mgs. Enoxaparin. Needs rehab placement. awaiting [facility] approval/bed Subjective Today morning Jeffrey is overall stable. He says he feels better than when he was here. His heygine was better than yesterday. No SOB, chest pain, feels better than yesterday Review of Systems Review of Systems: As per HPI Physical Exam Physical Exam: Gen: NAD, alert, interactive HEENT: Supple, no LAD, no thyromegaly, no JVD Resp:BL decreased air entry with wheezes and rales CV:RRR, normal S1/S2, no M/R/G Abd: Soft, non-distended, no TTP, normoactive bowels, no masses Extr:BL LL edema pitting +nt MSK: Hemiparesis of left UL/LL Results & Data Results & Data Vital Signs (Past 12 Hours) Vital Signs Temp Pulse Pulse Resp BP Pulse Ox O2 Del Method 12/08/23 07:09 72 12/08/23 03:10 36.8 C 67 16 113/72 94 Room Air 12/08/23 00:13 67 12/07/23 23:18 36.4 C L 72 18 126/81 96 Room Air 12/07/23 21:27 Room Air 12/07/23 20:31 36.9 C 63 16 124/74 94 Room Air Resident Activity Tracking Resident Involvement: Resident Care Provided Care Provided: Adult Hospital Medicine
--- NOTE | 2023-12-08 18:36 | Billing Data ---
Date of Service December 08, 2023 Coding Level of Care Code 39320 SUB INP/OBS CARE
[2023-12-08] MEDS: ACETAMINOPHEN 500 MG TAB PO PRN (20:16)
--- NOTE | 2023-12-09 06:49 | Hospitalist Progress Note ---
Date of Service December 09, 2023 Assessment & Plan (1) Complicated urinary tract infection: (2) Neurogenic bladder: (3) Altered mental status: (4) Diabetes mellitus, type 2: (5) AIR TRAFFIC CONTROL SPECIALIST (ventriculoperitoneal) shunt status: (6) Seizure disorder: (7) Left hemiparesis: (8) Hypertension: Plan Jeffrey is a 62M w/ PMH of AIR TRAFFIC CONTROL SPECIALIST shunt, multiple pulm nodules, sacral wounds, urinary retention, neurogenic bladder, GERD, tobacco use, seizure disorder and hypertension and Type 2 Diabetes who presented for AMS in the setting of complicated UTI. 1.Complicated Recurrent UTI with ESBL Klebsiella Clinical and lab [place] UTI; no sepsis Urine CS: ESBL Klebsiella oxytoca S to Bactrim R to Cefepime Bactrim: Day 3. CTAP: No e/o pyelonephritis; cystitis +, no e/o nephrolothiasis Urology consult ordered: Continue same treatment Will F/U in Outpatient basis for deciding Prophylactic Abx He is ready for discharge; however waiting for rehab bed. OT/PT: advised to continue after discharge 2. Altered mental status Improved to baseline as soon as admission. CT of the head and brain without contrast : No new changes. 3.Seizure disorder( S/P AIR TRAFFIC CONTROL SPECIALIST shunt for traumatic brain injury) Stable on Depakote and carbamazepine Valporate level : 33( No recent seizure) Fall prevention ordered Neurology comfortable with this dosing now If new seizure; Depakote 500 stat and 1000 OD Regular F/U with his neurologist. 4. BPH (benign prostatic hyperplasia): Condom cath was kept after UTI---fell on self yesterday--- urinating w/o abnormality Under Oxybutynin and Gemtasa Could consider restarting Tamsulosin prior to dc Known hx of incontinence/neurogenic bladder Clinical picture likely compounded by BPH on neurogenic bladder on i ncontinence Urology consult: No additional rec 5 Hypertension: Currently stable continue lisinopril 2.5 mg daily 6.Tobacco use disorder: Patient quit smoking approximately 2 months ago 7. DM type II Last HBA1C: 7.4 Metformin 500 BID at home; Insulin Aspart now DM seems uncontrolled now; needs medicine readjustment during discharge. Ongoing physical / Occupational therapy: Need rehab bed and regular PT/OT Diet: Heart Healthy DVT Ppx: Lovenox IVF: None Admission and Anticipated Discharge Date Admission Date: December 04, 2023 Supervising Physician Co-Signing Physician Notes Attending Physician Supervision Note: I independently interviewed and examined the patient and verified the blanc history and physical, reviewed labs and image studies and agree with findings and care plan noted above. Feeling okay, just waiting on rehab. Again telling jokes, smiling. Vitals noted, in general he is awake and alert pleasant no distress. HEENT normocephalic atraumatic mucous membranes moist. Breathing unlabored no accessory muscle use good effort. Skin without rashes pallor or icterus. Neuro without anything that appears to be acute focal deficitssignificant chronic appearing changes. UTI with metabolic encephalopathy - hx of ESBL/pseudomonas. -Urine cx - Klebsiella Oxytoca ESBL. Sensitive to Bactrim - finish out course of antibiotics with Bactrim; appears to be tolerating well -Urology Input appreciated Metabolic encephalopathy - CT head - No acute finding. Unchanged shunt position. Encephalomalacia. -sec to UTI. Resolved. Seizure ds - -Valproic acid level 33. No concern of seizure. -Continue carbamazepine, divalproex Diabetes mellitus- Holding metformin placed on Accu-Cheks with NovoLog SSI COPD- Continue Trelegy Ellipta Neurogenic bladder -Continue mirabegron and oxybutynin -Continue condom catheter for urinary incontinence. Left hemiparesis/Rigidity/Spasticity -Clonazepam and flexeril HTN - On lisinopril 2.5 mgs. Enoxaparin. Needs rehab placement. awaiting [facility] approval/bed Subjective Today morning Jeffrey is overall stable. He says he feels better than when he was here. His heygine was better. He is a funny hailey sharing jokes everyday. He is happy about his condom catheter is removed. No SOB, chest pain, feels better than yesterday Review of Systems Review of Systems: As per HPI Physical Exam Physical Exam: Gen: NAD, alert, interactive HEENT: Supple, no LAD, no thyromegaly, no JVD Resp:BL decreased air entry with wheezes and rales CV:RRR, normal S1/S2, no M/R/G Abd: Soft, non-distended, no TTP, normoactive bowels, no masses Extr:BL LL edema pitting +nt MSK: Hemiparesis of left UL/LL Results & Data Results & Data Vital Signs (Past 12 Hours) Vital Signs Temp Pulse Pulse Resp BP Pulse Ox O2 Del Method 12/09/23 03:09 36.9 C 58 L 16 129/63 94 Room Air 12/09/23 00:12 65 12/08/23 23:27 36.9 C 67 16 131/75 94 Room Air 12/08/23 20:13 37 C 68 20 132/67 94 Room Air 12/08/23 19:57 Room Air Resident Activity Tracking Resident Involvement: Resident Care Provided Care Provided: Adult Hospital Medicine
--- NOTE | 2023-12-09 17:33 | Billing Data ---
Date of Service December 09, 2023 Coding Level of Care Code 92934 SUB INP/OBS CARE 05/10MIN
[2023-12-09] MEDS: KETOROLAC TROMETHAMINE 15 MG/ML VIAL IV PRN (18:11)
--- NOTE | 2023-12-10 06:48 | Hospitalist Progress Note ---
Date of Service December 10, 2023 Assessment & Plan (1) Complicated urinary tract infection: (2) Neurogenic bladder: (3) Altered mental status: (4) Diabetes mellitus, type 2: (5) BLUE LEATHER SETTER (ventriculoperitoneal) shunt status: (6) Seizure disorder: (7) Left hemiparesis: (8) Hypertension: Plan Jeffrey is a 62M w/ PMH of BLUE LEATHER SETTER shunt, multiple pulm nodules, sacral wounds, urinary retention, neurogenic bladder, GERD, tobacco use, seizure disorder and hypertension and Type 2 Diabetes who presented for AMS in the setting of complicated UTI. 1.Complicated Recurrent UTI with ESBL Klebsiella Clinical and lab [place] UTI; no sepsis Urine CS: ESBL Klebsiella oxytoca S to Bactrim R to Cefepime Bactrim: Day 5; plan to complete 7 days CTAP: No e/o pyelonephritis; cystitis +, no e/o nephrolothiasis Urology consult ordered: Continue same treatment Will F/U in Outpatient basis for deciding Prophylactic Abx He is ready for discharge; however waiting for rehab bed. OT/PT: advised to continue after discharge 2. Altered mental status Improved to baseline as soon as admission. CT of the head and brain without contrast : No new changes. 3.Seizure disorder( S/P BLUE LEATHER SETTER shunt for traumatic brain injury) Stable on Depakote and carbamazepine Valporate level : 33( No recent seizure) Fall prevention ordered Neurology comfortable with this dosing now If new seizure; Depakote 500 stat and 1000 OD Regular F/U with his neurologist. 4. BPH (benign prostatic hyperplasia): Condom cath was kept after UTI---fell on self yesterday--- urinating w/o abnormality Under Oxybutynin and Gemtasa Could consider restarting Tamsulosin prior to dc Known hx of incontinence/neurogenic bladder Clinical picture likely compounded by BPH on neurogenic bladder on incontinence Urology consult: No additional rec 5 Hypertension: Currently stable continue lisinopril 2.5 mg daily BP last 24 hours: 115-129/ 60-80 6.Tobacco use disorder: Patient quit smoking approximately 2 months ago 7. DM type II Last HBA1C: 7.4 Metformin 500 BID at home; Insulin Aspart now DM seems uncontrolled now; needs medicine readjustment during discharge. Ongoing physical / Occupational therapy: Need rehab bed and regular PT/OT Diet: Heart Healthy DVT Ppx: Lovenox IVF: None Admission and Anticipated Discharge Date Admission Date: December 04, 2023 Supervising Physician Co-Signing Physician Notes Attending Physician Supervision Note: I independently interviewed and examined the patient and verified the blanc history and physical, reviewed labs and image studies and agree with findings and care plan noted above. Feeling okay, just waiting on rehab. later it appears in review of case management notes that rehab placement may not be doable. Vitals noted, in general he is awake and alert pleasant no distress. HEENT normocephalic atraumatic mucous membranes moist. Breathing unlabored no accessory muscle use good effort. Skin without rashes pallor or icterus. Neuro without anything that appears to be acute focal deficitssignificant chronic appearing changes. UTI with metabolic encephalopathy - hx of ESBL/pseudomonas. -Urine cx - Klebsiella Oxytoca ESBL. Sensitive to Bactrim - finish out 7-day course of antibiotics with Bactrim; appears to be tolerating well -Urology Input appreciated Metabolic encephalopathy - CT head - No acute finding. Unchanged shunt position. Encephalomalacia. -sec to UTI. Resolved. Seizure ds - -Valproic acid level 33. No concern of seizure. -Continue carbamazepine, divalproex Diabetes mellitus- Holding metformin placed on Accu-Cheks with NovoLog SSI COPD- Continue Trelegy Ellipta Neurogenic bladder -Continue mirabegron and oxybutynin -Continue condom catheter for urinary incontinence. Left hemiparesis/Rigidity/Spasticity -Clonazepam and flexeril HTN - On lisinopril 2.5 mgs. Enoxaparin. Needs rehab placement. awaiting [facility] approval/bed Subjective Today morning Jeffrey is overall stable. He says he feels better than when he was here. His heygine was better. He is a funny hailey sharing jokes everyday. He is happy about discharge, however we are waiting for rehab bed. No SOB, chest pain, feels better than yesterday Review of Systems Review of Systems: As per HPI Physical Exam Physical Exam: Gen: NAD, alert, interactive HEENT: Supple, no LAD, no thyromegaly, no JVD Resp:BL decreased air entry with wheezes and rales CV:RRR, normal S1/S2, no M/R/G Abd: Soft, non-distended, no TTP, normoactive bowels, no masses Extr:BL LL edema pitting +nt MSK: Hemiparesis of left UL/LL Results & Data Results & Data Vital Signs (Past 12 Hours) Vital Signs Temp Pulse Pulse Resp BP Pulse Ox O2 Del Method 12/10/23 03:50 37.0 C 57 L 14 117/73 91 Room Air 12/09/23 23:35 Room Air 12/09/23 23:33 37.2 C 62 16 119/68 95 Room Air 12/09/23 21:34 66 12/09/23 20:00 37.3 C 65 16 124/65 93 Room Air Resident Activity Tracking Resident Involvement: Resident Care Provided Care Provided: Adult Hospital Medicine
--- NOTE | 2023-12-10 15:21 | Billing Data ---
Date of Service December 10, 2023 Coding Level of Care Code 93348 SUB INP/OBS CARE
[2023-12-11] MEDS: TAMSULOSIN HCL 0.4 MG CAP PO SCH (06:11)
--- NOTE | 2023-12-11 06:42 | Hospitalist Progress Note ---
Date of Service December 11, 2023 Assessment & Plan (1) Complicated urinary tract infection: (2) Neurogenic bladder: (3) Altered mental status: (4) Diabetes mellitus, type 2: (5) NEUROLOGY HOSPITALIST (ventriculoperitoneal) shunt status: (6) Seizure disorder: (7) Left hemiparesis: (8) Hypertension: Plan Jeffrey is a 62M w/ PMH of NEUROLOGY HOSPITALIST shunt, multiple pulm nodules, sacral wounds, urinary retention, neurogenic bladder, GERD, tobacco use, seizure disorder and hypertension and Type 2 Diabetes who presented for AMS in the setting of complicated UTI. 1.Complicated Recurrent UTI with ESBL Klebsiella Clinical and lab [place] UTI; no sepsis Urine CS: ESBL Klebsiella oxytoca S to Bactrim R to Cefepime Bactrim ongoing: plan to complete 7 days CTAP: No e/o pyelonephritis; cystitis +, no e/o nephrolithiasis Urology consult ordered: Continue same treatment Will F/U in Outpatient basis for deciding Prophylactic Abx He is ready for discharge; however waiting for rehab bed. Rehab bed seems challenging; swing came alternative; not ready yet OT/PT: advised to continue after discharge Talked to his family( sister and niece): Updated his status; ready to discharge to rehab but bed unavailable; they agree with our plan and trying to arrange bed, at least a swing if not rebhab. 2. Altered mental status Improved to baseline as soon as admission. CT of the head and brain without contrast : No new changes. 3.Seizure disorder( S/P NEUROLOGY HOSPITALIST shunt for traumatic brain injury) Stable on Depakote and carbamazepine Valproate level : 33( No recent seizure) Fall prevention ordered Neurology comfortable with this dosing now If new seizure; Depakote 500 stat and 1000 OD Regular F/U with his neurologist. 4. BPH (benign prostatic hyperplasia): Condom cath was kept after UTI---fell on self yesterday--- urinating w/o abnormality Under Oxybutynin and Gemtasa Could consider restarting Tamsulosin prior to dc Known hx of incontinence/neurogenic bladder Clinical picture likely compounded by BPH on neurogenic bladder on incontinence Urology consult: No additional rec 12/10: Had urine retention during night; Tamsulosin restarted 5 Hypertension: Currently stable continue lisinopril 2.5 mg daily BP last 24 hours: Stable 6.Tobacco use disorder: Patient quit smoking approximately 2 months ago 7. DM type II Last HBA1C: 7.4 Metformin 500 BID at home; Insulin Aspart now DM seems uncontrolled now; needs medicine readjustment during discharge. Ongoing physical / Occupational therapy: Need rehab bed and regular PT/OT Diet: Heart Healthy DVT Ppx: Lovenox Admission and Anticipated Discharge Date Admission Date: December 04, 2023 Supervising Physician Co-Signing Physician Notes Attending Physician Supervision Note: I independently interviewed and examined the patient and verified the blanc history and physical, reviewed labs and image studies and agree with findings and care plan noted above. Family present. Updated the best my ability and to their satisfaction. Vitals noted, in general he is awake and alert pleasant no distress. HEENT normocephalic atraumatic mucous membranes moist. Breathing unlabored no accessory muscle use good effort. Skin without rashes pallor or icterus. Neuro without anything that appears to be acute focal deficitssignificant chronic appearing changes. UTI with metabolic encephalopathy - hx of ESBL/pseudomonas. -Urine cx - Klebsiella Oxytoca ESBL. Sensitive to Bactrim - finish out 7-day course of antibiotics with Bactrim Today. Anticipate suppression with methenamine after. Discussed with family. -Urology Input appreciated Metabolic encephalopathy - CT head - No acute finding. Unchanged shunt position. Encephalomalacia. -sec to UTI. Resolved. Seizure ds - -Valproic acid level 33. No concern of seizure. -Continue carbamazepine, divalproex Diabetes mellitus- Holding metformin placed on Accu-Cheks with NovoLog SSI COPD- Continue Trelegy Ellipta Neurogenic bladder -Continue mirabegron and oxybutynin -Continue condom catheter for urinary incontinence. Left hemiparesis/Rigidity/Spasticity -Clonazepam and flexeril HTN - On lisinopril 2.5 mgs. Enoxaparin. Rehab denied, still awaiting determination on swing bed. Subjective Today morning Jeffrey is overall stable. He says he feels better than when he was here. His heygine was better. He is a funny hailey sharing jokes everyday. He is happy about discharge, however we are waiting for rehab bed. No SOB, chest pain, feels better than yesterday. His family(sister and niece) were present in room; updated them about Jeffrey's current status. Sister was concerned if we repeat urine test on him. She was positive about Jeffrey being discharged to Rehab, however finding rehab bed is being challenging. Review of Systems Review of Systems: As per HPI Physical Exam Physical Exam: Gen: NAD, alert, interactive HEENT: Supple, no LAD, no thyromegaly, no JVD Resp:BL decreased air entry with wheezes and rales CV:RRR, normal S1/S2, no M/R/G Abd: Soft, non-distended, no TTP, normoactive bowels, no masses Extr:BL LL edema pitting +nt MSK: Hemiparesis of left UL/LL Results & Data Results & Data Vital Signs (Past 12 Hours) Vital Signs Temp Pulse Resp BP Pulse Ox O2 Del Method 12/10/23 22:20 Room Air 12/10/23 22:15 36.9 C 57 L 15 139/85 96 Room Air 12/10/23 20:32 37 C 74 17 129/73 93 Room Air
--- NOTE | 2023-12-11 17:49 | Billing Data ---
Date of Service December 11, 2023 Coding Level of Care Code 61798 SUB INP/OBS CARE
--- NOTE | 2023-12-12 06:49 | Hospitalist Progress Note ---
Date of Service December 12, 2023 Assessment & Plan (1) Complicated urinary tract infection: (2) Neurogenic bladder: (3) Altered mental status: (4) Diabetes mellitus, type 2: (5) FILER HELPER (ventriculoperitoneal) shunt status: (6) Seizure disorder: (7) Left hemiparesis: (8) Hypertension: Plan Jeffrey is a 62M w/ PMH of FILER HELPER shunt, multiple pulm nodules, sacral wounds, urinary retention, neurogenic bladder, GERD, tobacco use, seizure disorder and hypertension and Type 2 Diabetes who presented for AMS in the setting of complicated UTI. 1.Complicated Recurrent UTI with ESBL Klebsiella Clinical and lab [place] UTI; no sepsis Urine CS: ESBL Klebsiella oxytoca S to Bactrim R to Cefepime Bactrim ongoing: plan to complete 7 days CTAP: No e/o pyelonephritis; cystitis +, no e/o nephrolithiasis Urology consult ordered: Continue same treatment Will F/U in Outpatient basis for deciding Prophylactic Abx He is ready for discharge; however waiting for rehab bed. Rehab bed seems challenging; swing came alternative; not ready yet OT/PT: advised to continue after discharge Talked to his family( sister and niece): Updated his status; ready to discharge to rehab but bed unavailable; they agree with our plan and trying to arrange bed, at least a swing if not rebhab. 2. Altered mental status Improved to baseline as soon as admission. CT of the head and brain without contrast : No new changes. 3.Seizure disorder( S/P FILER HELPER shunt for traumatic brain injury) Stable on Depakote and carbamazepine Valproate level : 33( No recent seizure) Fall prevention ordered Neurology comfortable with this dosing now If new seizure; Depakote 500 stat and 1000 OD Regular F/U with his neurologist. 4. BPH (benign prostatic hyperplasia): Condom cath was kept after UTI---fell on self yesterday--- urinating w/o abnormality Under Oxybutynin and Gemtasa Could consider restarting Tamsulosin prior to dc Known hx of incontinence/neurogenic bladder Clinical picture likely compounded by BPH on neurogenic bladder on incontinence Urology consult: No additional rec 12/10: Had urine retention during night; Tamsulosin restarted 5 Hypertension: Currently stable continue lisinopril 2.5 mg daily BP last 24 hours: Stable 6.Tobacco use disorder: Patient quit smoking approximately 2 months ago 7. DM type II Last HBA1C: 7.4 Metformin 500 BID at home; Insulin Aspart now DM seems uncontrolled now; needs medicine readjustment during discharge. Ongoing physical / Occupational therapy: Need rehab bed and regular PT/OT Diet: Heart Healthy DVT Ppx: Lovenox Admission and Anticipated Discharge Date Admission Date: December 04, 2023 Subjective Today morning Jeffrey is overall stable. He says he feels better than when he was here. His heygine was better. He is a funny hailey sharing jokes everyday. He is happy about discharge, however we are waiting for rehab bed. No SOB, chest pain, feels better than yesterday. His family(sister and niece) were present in room; updated them about Jeffrey's current status. Sister was concerned if we repeat urine test on him. She was positive about Jeffrey being discharged to Rehab, however finding rehab bed is being challenging. Review of Systems Review of Systems: As per HPI Physical Exam Physical Exam: Gen: NAD, alert, interactive HEENT: Supple, no LAD, no thyromegaly, no JVD Resp:BL decreased air entry with wheezes and rales CV:RRR, normal S1/S2, no M/R/G Abd: Soft, non-distended, no TTP, normoactive bowels, no masses Extr:BL LL edema pitting +nt MSK: Hemiparesis of left UL/LL Results & Data Results & Data Vital Signs (Past 12 Hours) Vital Signs Temp Pulse Resp BP Pulse Ox O2 Del Method 12/11/23 20:32 36.8 C 70 18 110/71 92 Room Air 12/11/23 19:55 Room Air
[2023-12-12 08:01] VITALS: O2SAT 97
--- NOTE | 2023-12-12 10:06 | Discharge Summary ---
Date of Service December 12, 2023 Admission HPI Per Admitting Provider Jeffrey is a 62-year-old male with a past medical history significant for previous traumatic brain injury requiring craniectomy and COMMUNICATIONS LEAD shunt placement with resultant left-sided hemiparesis, seizure disorder, sacral wound, hypertension, DM type II, previous tobacco use disorder, and recurrent resistant UTIs who presented to the [facility] ED on 12/04/2023 due to family being concerned for altered mental status consistent with previous UTIs. Patient remained stable in the ED. Labs were significant for a leukocytosis of 10 with mild neutrophil predominance of 6.8, UA with cloudy appearance, 2+ pr otein, nitrite positive, trace leukocyte esterase, greater than 50 WBC, greater than 20 RBC, 3-5 hyaline cast, and 3+ bacteria, with full respiratory BioFire negative. Chest x-ray was read as negative for acute findings. Prior to admission the patient was given 1 L normal saline, 1 g IV acetaminophen, and a dose of cefepime. Patient was lying in bed no acute distress at the time of exam with his sister/POA at bedside, history is obtained from both. History explained to the patient started to have foul-smelling urine yesterday along with a headache and mild confusion consistent with previous UTIs. They deny recent fevers, patient confirms that he has been taking his home medications as prescribed. Denies recent chest pain, shortness of breath, abdominal pain, nausea/vomiting, hematuria, diarrhea, and recent trauma. Patient's sister states that he follows with urology and has had a long history of urinary retention resistant to previous oral medications. Patient had a Bailey catheter previously but does not prefer to have 1 in which is why it was removed prior to last discharge. They confirm the patient is a full code and his sister is his power of patent attorney. Admission Exam Per Admitting Provider General: In no acute distress, stated age, well-nourished, non-toxic appearing HEENT: Normocephalic, atraumatic, no scleral icterus, pupils around round, symmetrical, and reactive to light, dry mucus membranes, trachea midline, no thyromegaly Chest/Pulm: No respiratory distress, symmetrical chest expansion, decreased breath sounds in the LLE otherwise CTA Cardiac: RRR, no murmurs noted Abdomen: Negative for ascites and bruising, normoactive bowel sounds, soft, non- tender to palpation throughout Musculoskeletal: Baseline left-sided hemiparesis noted, no acute trauma Extremities: Radial, dorsalis pedis, and posterior tibial pulses are intact and symmetrical, no edema noted in the BL LE's Skin: Warm, dry, no rashes , lesions, or scars noted Neuro: Alert and oriented to person, place, month, year, no focal defects, baseline left-sided hemiparesis noted, no acute neurologic changes compared to baseline no tremors noted Psych: No acute distress, calm and cooperative during the exam Principal Diagnosis Complicated UTI Discharge Exam Gen: NAD, alert, interactive HEENT: Supple, no LAD, no thyromegaly, no JVD Resp:BL decreased air entry with wheezes and rales CV:RRR, normal S1/S2, no M/R/G Abd: Soft, non-distended, no TTP, normoactive bowels, no masses Extr:BL LL edema pitting +nt MSK: Hemiparesis of left UL/LL Discharge Data Allergies Allergy/AdvReac Type Severity Reaction Status Date / Time aspirin AdvReac Mild Anxiety Verified 12/04/23 19:55 [From Excedrin Extra Strength] caffeine AdvReac Mild Anxiety Verified 12/04/23 19:55 [From Excedrin Extra Strength] Consultations 12/04/23 21:09 ED Decision to Admit Stat 12/07/23 11:50 Consult Urology Routine Ordered Studies 12/04/23 19:29 CT abd pelvis IV con only Stat CT head/brain wo con Stat Hospital Course (1) Complicated urinary tract infection: (2) Neurogenic bladder: (3) Altered mental status: (4) Diabetes mellitus, type 2: (5) COMMUNICATIONS LEAD (ventriculoperitoneal) shunt status: (6) Seizure disorder: (7) Left hemiparesis: (8) Hypertension: Jeffrey is a 62M w/ PMH of COMMUNICATIONS LEAD shunt, multiple pulm nodules, sacral wounds, urinar y retention, neurogenic bladder, GERD, tobacco use, seizure disorder and hypertension and Type 2 Diabetes who presented for AMS in the setting of complicated UTI. 1.Complicated Recurrent UTI with ESBL Klebsiella Cystitis; No sepsis Urine CS: ESBL Klebsiella oxytoca S to Bactrim: Treated with Bactrim Urology consult :Will F/U in Outpatient basis for deciding Prophylactic Abx OT/PT: advised to continue after discharge; could not find rehab bed; sending home. 2. Altered mental status Improved to baseline as soon as admission. CT of the head and brain without contrast : No new changes. 3.Seizure disorder( S/P COMMUNICATIONS LEAD shunt for traumatic brain injury) Stable on Depakote and carbamazepine Valproate level : 33( No recent seizure) Fall prevention ordered Neurology comfortable with this dosing now If new seizure; Depakote 500 stat and 1000 OD Regular F/U with his neurologist. 4. BPH (benign prostatic hyperplasia): Condom cath was kept after UTI---fell on self yesterday--- urinating w/o abnormality Under Oxybutynin and Gemtasa Known hx of incontinence/neurogenic bladder Clinical picture likely compounded by BPH on neurogenic bladder on incontinence Urology consult: No additional rec Tamsulosin restarted 5 Hypertension: Currently stable continue lisinopril 2.5 mg daily 6.Tobacco use disorder: Patient quit smoking approximately 2 months ago 7. DM type II Last HBA1C: 7.4 Discharging on Metformin 500 BID at home Total Time Total Time Spent Total Time Spent (In Minutes): <30 Discharge Plan Discharge Items Patient Disposition: Home - Self-Care Reason For Visit: AMS, UTI, DEHYDRATION Discharge Diagnosis: Complicated UTI with ESBL Activity: Per Instructions section Non-emergency contact: Primary Care Provider Call non-emergency contact if: your symptoms worsen Follow-up/Referrals: Radha Martin MD [Primary Care Provider] - (PLEASE CALL YOUR PRIMARY CARE PROVIDER TO SCHEDULE A HOSPITAL DISCHARGE FOLLOW-UP APPOINTMENT WITHIN 7-10 DAYS) Diet: Regular Fluids: 2000ml (8 cups) Addtl Attending Provider Instructions: - Recurrent Urinary tract infection treated for bug with resistance to antibiotics; complete 7 day course of Abx - Follow up Urology in office for 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 - Treated with Bactrim : complete 7 day course - Urology F/U advised for fpc management Pending Studies at Discharge: No Stand-Alone Forms: My [employer], Smoking Cessation Medications and DC Order Prescriptions: New baclofen 10 mg Tablet 10 mg PO TID 30 Days Qty: 90 0RF guaifenesin [Mucinex] 600 mg Tablet Extended Release 12hr 600 mg PO Q12 7 Days Qty: 14 0RF melatonin 3 mg Tablet 6 mg PO HS Qty: 90 0RF Arnuity Ellipta 100 mcg/actuation Blister With Device 1 inh inhalation DAILY Qty: 30 0RF tamsulosin 0.4 mg Capsule 0.4 mg PO QAM Qty: 90 0RF methenamine hippurate 1 gram tablet 1 g PO BID Qty: 60 0RF Continued clonazepam [Klonopin] 1 mg tablet 1 mg PO HS PRN (Reason: Sleep) divalproex [Depakote] 500 mg tablet,delayed release (DR/EC) 500 mg PO BID carbamazepine [Tegretol XR] 200 mg tablet extended release 12 hr 200 mg PO BID baclofen 10 mg tablet 10 mg PO TID atorvastatin 20 mg tablet 20 mg PO QPM acetaminophen 500 mg Capsule 1,000 mg PO Q6H PRN (Reason: Pain) metformin 500 mg tablet 500 mg PO BID miconazole nitrate [Zeasorb AF] 2 % powder 1 applic TOPICAL BID PRN (Reason: Other) magnesium oxide 400 mg (241.3 mg magnesium) tablet 400 mg PO QAM Trelegy Ellipta 100-62.5-25 mcg blister with device 1 inh INHALATION DAILY oxybutynin chloride 15 mg tablet extended release 24hr 15 mg PO PM mirabegron [Myrbetriq] 50 mg tablet extended release 24 hr 50 mg PO QAM lisinopril 2.5 mg tablet 2.5 mg PO DAILY Discontinued melatonin 3 mg tablet 6 mg PO HS Discharge Orders: Discharge Order (Routine); Ordered 12/12/23 Ordered By: Steffi Shane/Other Patient Handouts: UTIs Catheter Linked, UTIs, Trigger Point Injection, Who Is at Risk for Delirium?, High Blood Pressure Tx, ED Seizure [place] [facility] [place] Admit Date/Time: 12/04/23 21:03 Attending Provider: Chet Jerez Admit Provider: Baldev Negrete Primary Care Provider: Radha Martin Other Providers: Baldev Negrete; Buzz Alicea; Keith Cunningham; Fede Tovar; Michelle Grajeda; Pablito Garcia; Dinah Sterling; Brittany Bell; Lenard Douglas; Radha Campos; Fredy Forrest; Angela Montaño; Giovanni Armenta. Other Interventions: Discharge Summary Assessment (RN) Last Done: 12/12/23 14:25 Supervising Physician Co-Signing Physician Notes Attending Physician Supervision Note: I independently interviewed and examined the patient and verified the blanc history and physical, reviewed labs and image studies and agree with findings and care plan noted above. no new complaints, happy to be going home. Vitals noted, in general he is awake and alert pleasant no distress. HEENT normocephalic atraumatic mucous membranes moist. Breathing unlabored no accessory muscle use good effort. Skin without rashes pallor or icterus. Neuro without anything that appears to be acute focal deficitssignificant chronic appearing changes. UTI with metabolic encephalopathy - hx of ESBL/pseudomonas. -Urine cx - Klebsiella Oxytoca ESBL. Sensitive to Bactrim - finished out 7- day course of antibiotics with Bactrim - suppression with methenamine after. Discussed with family. -Urology Input appreciated Metabolic encephalopathy - CT head - No acute finding. Unchanged shunt position. Encephalomalacia. -sec to UTI. Resolved. Seizure ds - -Valproic acid level 33. No concern of seizure. -Continue carbamazepine, divalproex Diabetes mellitus- home on home meds stable for home, otherwise as above
[2023-12-12 13:02] VITALS: BP 138/84; PULSE 78; RESP 18; TEMP 98.1
--- NOTE | 2023-12-12 16:25 | Billing Data ---
Date of Service December 12, 2023 Coding Level of Care Code 76114 IN/OBS DISCH 30 MIN/LESS
== END 2023-12-12 16:10 | disposition home or self-care (01) | DRG 689 ==
LOC: ED 17:18 → 2N 21:03 → SUATTDRO 21:03 → 2N 23:12 → 3E 12-10 22:12